=== PATIENT | female | born 1935 | race Two or more races ===

== ENCOUNTER 2018-02-22 22:07 | Inpatient (IN) | payer MEDICARE, MEDICAID ==
[~2018-02-22] VITALS: Ht 149.9 cm; Wt 58.1 kg
--- NOTE | 2018-02-22 22:20 | Emergency Room Report ---
History of Present Illness General Chief Complaint: Dyspnea/Respdistress Source: Patient Present Illness HPI Patient is an 82-year-old female presented for increased difficulty breathing. Patient was noted to have low oxygen saturation by EMS and was transported hospital for further evaluation and treatment. Patient had prior history of diabetes and hypertension. She been taking Lasix for congestive heart failure. She was sent in from urgent care. Allergies: Coded Allergies: No Known Allergies (Unverified , 02/22/18) Patient History Past Medical History: see triage record Last Menstrual Period: n/a Reviewed Nursing Documentation: PMH: Agreed; PSxH: Agreed Nursing Documentation-PMH Hx Hypertension: Yes Hx Pacemaker: Yes Hx Diabetes: Yes - DM II Review of Systems All Other Systems: negative except mentioned in HPI Physical Exam Vital Signs Date Time Temp Pulse Resp B/P (MAP) Pulse Ox O2 Delivery O2 Flow Rate FiO2 02/22/18 22:02 99.0 61 18 96/50 100 Non-Rebreather 100 99.0 Sp02 EP Interpretation: reviewed, normal General Appearance: normal inspection, well appearing, no apparent distress, alert, GCS 15, non-toxic, Chronically Ill Head: atraumatic ENT: normal ENT inspection, hearing grossly normal, normal voice Neck: normal inspection, full range of motion, supple, no bony tend Respiratory: normal inspection, no respiratory distress, no retraction, rales Cardiovascular #1: regular rate, rhythm, edema Gastrointestinal: normal inspection, normal bowel sounds, non tender, soft, no guarding, no hernia Genitourinary: no CVA tenderness Musculoskeletal: normal inspection, back normal, normal range of motion Neurologic: normal inspection, alert, responsive, speech normal, other - right upper extremity pill rolling tremor Psychiatric: normal inspection, judgement/insight normal, mood/affect normal Skin: normal inspection, normal color, no rash Medical Decision Making Diagnostic Impression: Primary Impression: Acute exacerbation of CHF (congestive heart failure) ER Course Patient presented for shortness of breath. Differential included but was not limited to anemia, pneumonia, pneumothorax, myocardial infarction, pericardial effusion, congestive heart failure, acidosis. Because of complexity of patient' s case laboratory testing and imaging studies were ordered.The laboratory testing showed a normal white blood count. Patient started on IV fluids and initially the for hypotension. Patient was noted to have improvement. Chest x- ray showed bilateral infiltrates and vascular congestion and cardiomegaly consistent with CHF. Patient was given IV Lasix. Dr. Johnna Garcia was contacted for inpatient management Labs Test 02/22/18 22:48 White Blood Count 9.5 K/UL (4.8-10.8) Red Blood Count 3.36 M/UL (4.20-5.40) Hemoglobin 9.3 G/DL (12.0-16.0) Hematocrit 28.6 % (37.0-47.0) Mean Corpuscular Volume 85 FL (80-99) Mean Corpuscular Hemoglobin 27.8 PG (27.0-31.0) Mean Corpuscular Hemoglobin Concent 32.7 G/DL (32.0-36.0) Red Cell Distribution Width 16.2 % (11.6-14.8) Platelet Count 431 K/UL (150-450) Mean Platelet Volume 7.2 FL (6.5-10.1) Neutrophils (%) (Auto) 60.1 % (45.0-75.0) Lymphocytes (%) (Auto) 27.4 % (20.0-45.0) Monocytes (%) (Auto) 10.0 % (1.0-10.0) Eosinophils (%) (Auto) 1.9 % (0.0-3.0) Basophils (%) (Auto) 0.7 % (0.0-2.0) Sodium Level 134 MMOL/L (136-145) Potassium Level 4.1 MMOL/L (3.5-5.1) Chloride Level 103 MMOL/L (98-107) Carbon Dioxide Level 25 MMOL/L (21-32) Anion Gap 6 mmol/L (5-15) Blood Urea Nitrogen 28 mg/dL (7-18) Creatinine 1.3 MG/DL (0.55-1.30) Estimat Glomerular Filtration Rate mL/min (>60) Glucose Level 154 MG/DL (74-106) Lactic Acid Level 1.80 mmol/L (0.4-2.0) Calcium Level 8.7 MG/DL (8.5-10.1) Total Bilirubin 0.4 MG/DL (0.2-1.0) Aspartate Amino Transf (AST/SGOT) 27 U/L (15-37) Alanine Aminotransferase (ALT/SGPT) 40 U/L (12-78) Alkaline Phosphatase 468 U/L (46-116) Total Creatine Kinase 42 U/L (26-308) Creatine Kinase MB 0.5 NG/ML (0.0-3.6) Creatine Kinase MB Relative Index 1.1 Troponin I 0.002 ng/mL (0.000-0.056) Total Protein 8.2 G/DL (6.4-8.2) Albumin 3.0 G/DL (3.4-5.0) Globulin 5.2 g/dL Albumin/Globulin Ratio 0.6 (1.0-2.7) EKG Diagnostic Results Rate: normal Rhythm: other - pacemaker ASA given to the pt in ED: No Rhythm Strip Diag. Results EP Interpretation: yes Rhythm: no PVC's, no ectopy, other - paced Last Vital Signs Date Time Temp Pulse Resp B/P (MAP) Pulse Ox O2 Delivery O2 Flow Rate FiO2 02/22/18 22:02 99.0 61 18 96/50 100 Non-Rebreather 100 99.0 Status: unchanged Disposition: ADMITTED INPATIENT Condition: Serious Jamaal Etienne MD Feb 22, 2018 22:20
[2018-02-22 22:30] VITALS: BP 159/51
[2018-02-22] MEDS ORDERED: Albuterol/Ipratropium 3ml neb HHN ONE (22:30)
[2018-02-22 23:10] LABS: BASOPHILS % (AUTO) 0.7 % (0.0-2.0); EOSINOPHILS % (AUTO) 1.9 % (0.0-3.0); HEMATOCRIT 28.6 % (37.0-47.0); HEMOGLOBIN 9.3 G/DL (12.0-16.0); LYMPHOCYTES % (AUTO) 27.4 % (20.0-45.0); MEAN CORPUSCULAR VOLUME 85 FL (80-99); NEUTROPHILS % (AUTO) 60.1 % (45.0-75.0); PLATELET COUNT 431 K/UL (150-450); RED BLOOD COUNT 3.36 M/UL (4.20-5.40); RED CELL DISTRIBUTION WIDTH 16.2 % (11.6-14.8); WHITE BLOOD COUNT 9.5 K/UL (4.8-10.8)
[2018-02-22 23:28] LABS: ANION GAP 6 mmol/L (5-15); BLOOD UREA NITROGEN 28 mg/dL (7-18); CALCIUM 8.7 MG/DL (8.5-10.1); CARBON DIOXIDE 25 MMOL/L (21-32); CHLORIDE 103 MMOL/L (98-107); CREATININE 1.3 MG/DL (0.55-1.30); POTASSIUM 4.1 MMOL/L (3.5-5.1); SODIUM 134 MMOL/L (136-145)
[2018-02-22 23:42] LABS: ALANINE AMINOTRANSFERASE 40 U/L (12-78); ALBUMIN/GLOBULIN RATIO 0.6 (1.0-2.7); ALKALINE PHOSPHATASE 468 U/L (46-116); ASPARTATE AMINO TRANSFERASE 27 U/L (15-37); BILIRUBIN,TOTAL 0.4 MG/DL (0.2-1.0); CKMB 0.5 NG/ML (0.0-3.6); CREATINE KINASE 42 U/L (26-308)
--- NOTE | 2018-02-22 23:52 | Diagnostic Imaging Report ---
EXAM: XR Chest, 1 View CLINICAL HISTORY: SOB TECHNIQUE: Frontal view of the chest. COMPARISON: No relevant prior studies available. FINDINGS: Lungs: Bilateral pulmonary edema/infiltrates. Pleural space: Small/moderate bilateral pleural effusions. No pneumothorax. Heart: Cardiomegaly. Mediastinum: Unremarkable. Bones/joints: Unremarkable. Tubes, lines and devices: Left chest cardiac pacer. IMPRESSION: 1. Bilateral pulmonary edema/infiltrates. 2. Small/moderate bilateral pleural effusions.
[2018-02-23] MEDS ORDERED: DONEPEZIL HCL10 M2 ORAL (00:17)
[2018-02-23] MEDS ORDERED: TORSEMIDE20 MG ORAL (00:17)
[2018-02-23] MEDS ORDERED: FUROSEMIDE20 M1 ORAL (00:17)
[2018-02-23] MEDS ORDERED: NORVASC10 MG ORAL (00:17)
[2018-02-23] MEDS ORDERED: DIOVAN80 MG ORAL (00:17)
[2018-02-23] MEDS ORDERED: AMIODARONE HCL200 MG ORAL (00:17)
[2018-02-23] MEDS ORDERED: XARELTO10 MG ORAL (00:17)
[2018-02-23] MEDS ORDERED: AMIODARONE HCL100 MG ORAL (00:17)
[2018-02-23] MEDS ORDERED: METOPROLOL TAR100 M1 ORAL (00:17)
[2018-02-23] MEDS ORDERED: ASPIRIN81 M3 PO (00:17)
[2018-02-23] MEDS ORDERED: SERTRALINE HCL50 MG ORAL (00:17)
[2018-02-23] MEDS ORDERED: LANTUS SOL100 UNIT/1 SUBQ (00:17)
[2018-02-23 01:30] VITALS: BP 140/52
[2018-02-23 01:44] LABS: APPEARANCE,URINE CLEAR; BILIRUBIN, URINE NEGATIVE (NEGATIVE); COLOR,URINE PALE YELLOW; GLUCOSE, URINE (UA) NEGATIVE (NEGATIVE); KETONES,URINE NEGATIVE (NEGATIVE); LEUKOCYTE ESTERASE ,URINE NEGATIVE (NEGATIVE); NITRITE,URINE NEGATIVE (NEGATIVE); PH,URINE 6 (4.5-8.0); PROTEIN,URINE NEGATIVE (NEGATIVE); UROBILINOGEN,URINE NORMAL MG/DL (0.0-1.0)
[2018-02-23 04:00] VITALS: BP 138/55
[2018-02-23] MEDS: NovoLOG Insulin Flexpen SUBQ SCH ×4 (06:23→20:20)
[2018-02-23 07:56] LABS: BASOPHILS % (AUTO) 0.6 % (0.0-2.0); EOSINOPHILS % (AUTO) 0.5 % (0.0-3.0); HEMATOCRIT 27.1 % (37.0-47.0); HEMOGLOBIN 8.6 G/DL (12.0-16.0); LYMPHOCYTES % (AUTO) 25.2 % (20.0-45.0); MEAN CORPUSCULAR VOLUME 87 FL (80-99); MONOCYTES % (AUTO) 7.2 % (1.0-10.0); NEUTROPHILS % (AUTO) 66.6 % (45.0-75.0); PLATELET COUNT 384 K/UL (150-450); RED BLOOD COUNT 3.12 M/UL (4.20-5.40); RED CELL DISTRIBUTION WIDTH 16.1 % (11.6-14.8); WHITE BLOOD COUNT 7.2 K/UL (4.8-10.8)
[2018-02-23 08:00] VITALS: BP 163/61
[2018-02-23 08:10] LABS: ALANINE AMINOTRANSFERASE 34 U/L (12-78); ALBUMIN 2.6 G/DL (3.4-5.0); ALBUMIN/GLOBULIN RATIO 0.6 (1.0-2.7); ALKALINE PHOSPHATASE 400 U/L (46-116); ANION GAP 6 mmol/L (5-15); ASPARTATE AMINO TRANSFERASE 20 U/L (15-37); BILIRUBIN,TOTAL 0.4 MG/DL (0.2-1.0); BLOOD UREA NITROGEN 24 mg/dL (7-18); CALCIUM 8.2 MG/DL (8.5-10.1); CARBON DIOXIDE 26 MMOL/L (21-32); CHLORIDE 105 MMOL/L (98-107); CREATININE 1.2 MG/DL (0.55-1.30); SODIUM 137 MMOL/L (136-145)
--- NOTE | 2018-02-23 10:24 | Consultation ---
Consult Note Assessment/Plan DICT # [id number] Vinicius Miranda MD Feb 23, 2018 10:24
[2018-02-23] MEDS ORDERED: Albuterol/Ipratropium 3ml neb HHN PRN (10:30)
[2018-02-23 12:00] VITALS: BP 123/73
--- NOTE | 2018-02-23 12:00 | History and Physical Report ---
DATE OF ADMISSION: 02/22/2018 HISTORY OF PRESENT ILLNESS: The patient does not speak Singaporean. The patient is complaining of mild abdominal pain, nausea, and shortness of breath. The patient is admitted for shortness of breath and congestive heart failure exacerbation. The patient also has pulmonary edema on the x-ray and has a pacemaker as well. Denies cough. Does have orthopnea. Denies leg edema. PAST MEDICAL HISTORY: Significant for organic brain syndrome, Parkinson, NIDDM, hypertension, history of atrial fibrillation, depression, and CHF. PAST SURGICAL HISTORY: Denies. ALLERGIES: Denies. MEDICATIONS: Aspirin, Norvasc, amiodarone, furosemide, insulin, metoprolol, Zoloft, Xarelto, and Diovan. FAMILY HISTORY: Unable to obtain. SOCIAL HISTORY: Denies history of smoking, alcohol, or illicit drugs. REVIEW OF SYSTEMS: HEENT: Denies headaches. RESPIRATORY: Reports shortness of breath. Denies cough. Does have orthopnea. GASTROINTESTINAL: Does have nausea, otherwise denies vomiting. EXTREMITIES: Denies pain in lower extremities. Does have mild abdominal pain. CENTRAL NERVOUS SYSTEM: Denies change in vision or speech pattern. PHYSICAL EXAMINATION: VITAL SIGNS: Temperature is 97.6 and blood pressure 140/52. HEENT: PERRLA. NECK: Supple. No lymphadenopathy. CHEST: Bibasilar rales. CARDIOVASCULAR: Irregularly irregular. . ABDOMEN: Soft and nontender. No organomegaly. EXTREMITIES: 1+ edema. NEUROLOGIC: There is generalized weakness. Reflexes are equal on both sides. DIAGNOSTIC AND LABORATORY DATA: A chest x-ray was compatible with pulmonary edema. WBC of 9.5, hemoglobin 9.3, and platelets of 433. Sodium 134, potassium 4.1, chloride 103, BUN of 28, creatinine 1.3, and glucose 154. Troponin is negative. No significant EKG changes. ASSESSMENT AND PLAN: 1. CHF exacerbation. 2. Shortness of breath. 3. Atrial fibrillation. 4. Hypertension. 5. Pulmonary edema. I have also asked Dr. Reid, Dr. Mcwilliams, and Dr. Miranda, see the patient for the management of the above-mentioned diagnoses and treatment. Johnna Ruiz M.D. DR: KARIN JOB#: [id number] CC:
--- NOTE | 2018-02-23 14:25 | Cardiac Electrophysiology PN ---
Subjective Subjective [id number] Objective Last 24 Hour Vital Signs Date Time Temp Pulse Resp B/P (MAP) Pulse Ox O2 Delivery O2 Flow Rate FiO2 02/23/18 12:00 60 02/23/18 12:00 97.5 82 18 123/73 100 Non-Rebreather 10.0 97.5 02/23/18 11:06 68 20 95 Venturi Mask 12.0 50 02/23/18 10:55 65 22 90 Venturi Mask 12.0 50 02/23/18 10:50 65 22 Venturi Mask 12.0 50 02/23/18 10:22 163/61 02/23/18 10:02 93 Venturi Mask 12.0 50 02/23/18 10:01 Venturi Mask 12.0 50 02/23/18 08:00 68 02/23/18 08:00 97.6 67 22 163/61 97 Non-Rebreather 10.0 97.6 02/23/18 04:00 97.7 62 20 138/55 96 Non-Rebreather 10.0 97.7 02/23/18 04:00 60 02/23/18 02:40 98.0 151/51 02/23/18 01:35 65 02/23/18 01:30 97.6 62 20 140/52 98 Non-Rebreather 10.0 97.6 02/23/18 00:29 90 20 98 Nasal Cannula 2.0 28 02/23/18 00:14 92 20 99 Room Air 21 02/22/18 22:30 99.0 18 159/51 100 Non-Rebreather 100 99.0 02/22/18 22:30 61 18 Non-Rebreather 100 02/22/18 22:02 99.0 61 18 96/50 100 Non-Rebreather 100 99.0 Intake and Output 02/22/18 02/23/18 19:00 07:00 Intake Total 0 ml Balance 0 ml Intake Oral 0 ml # Voids 4 # Bowel Movements 2 Laboratory Tests Test 02/22/18 22:46 02/22/18 22:48 02/23/18 06:02 02/23/18 10:40 Urine Color Pale yellow Urine Appearance Clear Urine pH 6 (4.5-8.0) Urine Specific [place] 1.010 (1.005-1.035) Urine Protein Negative (NEGATIVE) Urine Glucose (UA) Negative (NEGATIVE) Urine Ketones Negative (NEGATIVE) Urine Occult Blood Negative (NEGATIVE) Urine Nitrite Negative (NEGATIVE) Urine Bilirubin Negative (NEGATIVE) Urine Urobilinogen Normal MG/DL (0.0-1.0) Urine Leukocyte Esterase Negative (NEGATIVE) White Blood Count 9.5 K/UL (4.8-10.8) 7.2 K/UL (4.8-10.8) Red Blood Count 3.36 M/UL (4.20-5.40) L 3.12 M/UL (4.20-5.40) L Hemoglobin 9.3 G/DL (12.0-16.0) L 8.6 G/DL (12.0-16.0) L Hematocrit 28.6 % (37.0-47.0) L 27.1 % (37.0-47.0) L Mean Corpuscular Volume 85 FL (80-99) 87 FL (80-99) Mean Corpuscular Hemoglobin 27.8 PG (27.0-31.0) 27.6 PG (27.0-31.0) Mean Corpuscular Hemoglobin Concent 32.7 G/DL (32.0-36.0) 31.8 G/DL (32.0-36.0) L Red Cell Distribution Width 16.2 % (11.6-14.8) H 16.1 % (11.6-14.8) H Platelet Count 431 K/UL (150-450) 384 K/UL (150-450) Mean Platelet Volume 7.2 FL (6.5-10.1) 7.1 FL (6.5-10.1) Neutrophils (%) (Auto) 60.1 % (45.0-75.0) 66.6 % (45.0-75.0) Lymphocytes (%) (Auto) 27.4 % (20.0-45.0) 25.2 % (20.0-45.0) Monocytes (%) (Auto) 10.0 % (1.0-10.0) 7.2 % (1.0-10.0) Eosinophils (%) (Auto) 1.9 % (0.0-3.0) 0.5 % (0.0-3.0) Basophils (%) (Auto) 0.7 % (0.0-2.0) 0.6 % (0.0-2.0) Sodium Level 134 MMOL/L (136-145) L 137 MMOL/L (136-145) Potassium Level 4.1 MMOL/L (3.5-5.1) 4.0 MMOL/L (3.5-5.1) Chloride Level 103 MMOL/L (98-107) 105 MMOL/L (98-107) Carbon Dioxide Level 25 MMOL/L (21-32) 26 MMOL/L (21-32) Anion Gap 6 mmol/L (5-15) 6 mmol/L (5-15) Blood Urea Nitrogen 28 mg/dL (7-18) H 24 mg/dL (7-18) H Creatinine 1.3 MG/DL (0.55-1.30) 1.2 MG/DL (0.55-1.30) Estimat Glomerular Filtration Rate mL/min (>60) mL/min (>60) Glucose Level 154 MG/DL (74-106) H 151 MG/DL (74-106) H Lactic Acid Level 1.80 mmol/L (0.4-2.0) Calcium Level 8.7 MG/DL (8.5-10.1) 8.2 MG/DL (8.5-10.1) L Total Bilirubin 0.4 MG/DL (0.2-1.0) 0.4 MG/DL (0.2-1.0) Aspartate Amino Transf (AST/SGOT) 27 U/L (15-37) 20 U/L (15-37) Alanine Aminotransferase (ALT/SGPT) 40 U/L (12-78) 34 U/L (12-78) Alkaline Phosphatase 468 U/L (46-116) H 400 U/L (46-116) H Total Creatine Kinase 42 U/L (26-308) Creatine Kinase MB 0.5 NG/ML (0.0-3.6) Creatine Kinase MB Relative Index 1.1 Troponin I 0.002 ng/mL (0.000-0.056) 0.000 ng/mL (0.000-0.056) Total Protein 8.2 G/DL (6.4-8.2) 7.3 G/DL (6.4-8.2) Albumin 3.0 G/DL (3.4-5.0) L 2.6 G/DL (3.4-5.0) L Globulin 5.2 g/dL 4.7 g/dL Albumin/Globulin Ratio 0.6 (1.0-2.7) L 0.6 (1.0-2.7) L D-Dimer 0.72 mg/L FEU (0.00-0.49) H Pro-B-Type Natriuretic Peptide 2984 pg/mL (0-125) H Test 02/23/18 10:50 Arterial Blood pH 7.459 (7.350-7.450) Arterial Blood Partial Pressure CO2 38.5 mmHg (35.0-45.0) Arterial Blood Partial Pressure O2 56.1 mmHg (75.0-100.0) L Arterial Blood HCO3 26.7 mmol/L (22.0-26.0) H Arterial Blood Oxygen Saturation 88.5 % (92.0-98.0) L Arterial Blood Base Excess 2.8 Chacho Test Positive Parviz Reid MD Feb 23, 2018 14:25
--- NOTE | 2018-02-23 15:30 | Consultation ---
DATE OF CONSULTATION: 02/23/2018 PULMONARY CONSULTATION CONSULTING PHYSICIAN: Vinicius Miranda M.D. REFERRING PHYSICIAN: Johnna Ruiz M.D. REASON FOR CONSULTATION: Hypoxemia. HISTORY OF PRESENT ILLNESS: The patient is an 82-year-old female with a history of CHF, hypertension, hyperlipidemia, diabetes, dementia, and atrial fibrillation on anticoagulation, admitted with shortness of breath. Initially, the patient was hypotensive when she got to the ED and was given IV fluids, then she became more congested afterwards and hypoxemic. She was subsequently diuresed. Chest x-ray showed bilateral pulmonary vascular congestion, plus or minus infiltrates. She was afebrile with no white count. She denies any cough, wheezing, or hemoptysis. She notes increased shortness of breath, dyspnea, PND, and orthopnea. PAST MEDICAL HISTORY: 1. Prediabetes. 2. Hypertension. 3. Hyperlipidemia. 4. Atrial fibrillation. 5. Possible dementia. ALLERGIES: No known drug allergies. MEDICATIONS: Prior to admission, medications reviewed. Current medications, reviewed. SOCIAL HISTORY: She denies tobacco, alcohol, or drug use. FAMILY HISTORY: Noncontributory. REVIEW OF SYSTEMS: Negative other than history of present illness. PHYSICAL EXAMINATION: VITAL SIGNS: Temperature 97.6, pulse 67, blood pressure 163/61, respiratory rate 22, and saturating 100% on a Venturi mask 50%. GENERAL: She is an elderly female, in no acute distress. Awake, alert, and oriented x3. HEENT: Normocephalic and atraumatic. Oropharynx is clear with moist mucous membranes. NECK: Supple without lymphadenopathy with 8 cm JVP. CHEST: Clear with bibasilar rales. HEART: Regular rate and rhythm. ABDOMEN: Soft, nontender, and nondistended. EXTREMITIES: No cyanosis, clubbing. There is some presacral edema. ANCILLARY DATA: Sodium 137, potassium 4, chloride 105, bicarb 26, BUN 24, creatinine 1.2, glucose 151, and calcium 8.2. Total bilirubin 0.4. AST 20, ALT 34, alkaline phosphatase 34. Troponin 0.002, CK 0.01, and CK-MB 57. Albumin 2.6. Globulin 4.7. Urinalysis is negative. Chest x-ray, reviewed by myself shows bilateral pulmonary vascular congestion and scattered infiltrates. ASSESSMENT: The patient is an 82-year-old female with a history of CHF, hypertension, hyperlipidemia, atrial fibrillation, possible dementia, admitted with shortness of breath likely secondary to decompensated heart failure. PROBLEM LIST: 1. Acute hypoxemic respiratory failure. 2. CHF with acute decompensated heart failure. 3. Hypertension. 4. Hyperlipidemia. 5. Diabetes. 6. Atrial fibrillation on anticoagulation. 7. Possible GERD. TREATMENT PLAN: 1. Optimize pulmonary hygiene/mobilize as tolerated. 2. Titrate down FiO2 to keep saturations greater than 90%. 3. P.r.n. bronchodilators. 4. Monitor volumes and renal function, diuresis as tolerated. 5. Follow up echocardiogram. 6. We will check a D-dimer and a duplex. 7. We will monitor off antibiotics for signs of respiratory precautions. 8. Aspiration precautions. 9. X-ray should be followed to resolution. 10. DVT prophylaxis. The patient is on anticoagulation. Dr. Ruiz, thank you for allowing me to assist in the care of your patient. If I may be of any assistance in the future, please do not hesitate to ask. Dottie Huynh JOB#: [id number] CC:
[2018-02-23 15:45] VITALS: BP 143/53
--- NOTE | 2018-02-23 18:45 | Consultation ---
DATE OF CONSULTATION: 02/23/2018 CARDIOLOGY CONSULTATION CONSULTING PHYSICIAN: Parviz Reid M.D. REFERRING PHYSICIAN: Johnna Ruiz M.D. REASON FOR CONSULTATION: Shortness of breath and evaluation of the patient's pacemaker. HISTORY OF PRESENT ILLNESS: The patient is an 82-year-old lady with history of hypertension, diabetes, and history of permanent pacemaker, who also has congestive heart failure, has been on Lasix. The patient presented to the emergency for increasing shortness of breath and low oxygen saturation by EMS. The patient was sent back from an urgent care. The patient was admitted and a Cardiology consultation was obtained for further evaluation and management. PAST MEDICAL HISTORY: 1. Hypertension. 2. Diabetes. 3. Congestive heart failure. 4. Status post pacemaker. FAMILY HISTORY: Noncontributory. SOCIAL HISTORY: She does not smoke or drink alcohol. REVIEW OF SYSTEMS: Review of systems was negative other than what was mentioned in the history of present illness. PHYSICAL EXAMINATION: VITAL SIGNS: Blood pressure is 122/73, pulse is 82, respirations 18, and she is afebrile. HEAD AND NECK: Showed no JVD or carotid bruits. LUNGS: Clear. CARDIOVASCULAR: Regular S1 and S2. Pacemaker in left subclavian. ABDOMEN: Soft. EXTREMITIES: No pitting edema. LABORATORY DATA: Labs show white count of 7.2, hemoglobin 8.3, hematocrit 27.1 and platelet count of 384. Sodium 137, potassium 4.0, BUN of 24, creatinine 1.2, and glucose of 151. Troponin negative x2. BNP 2984 and D-dimer is 0.72. ASSESSMENT AND PLAN: 1. Status post permanent pacemaker implantation. The patient's EKG showed the patient is atrially paced at rate of 60 with nonspecific T-wave abnormality. We will try to find the brand of the pacemaker for interrogation. 2. Shortness of breath and elevated BNP likely secondary to congestive heart failure. The patient is on Lasix 40 mg IV daily. 3. History of paroxysmal atrial fibrillation, on a Xarelto, currently in sinus rhythm. 4. Elevated D-dimer. The patient may benefit from V/Q scan or chest CT depending on Dr. Miranda's choice. Thank you very much for allowing me to participate in the care of this patient. Please do not hesitate to contact me for any questions regarding my evaluation. Parviz Reid M.D. DR: RODNEY JOB#: [id number] CC:
[2018-02-23 20:00] VITALS: BP 135/50
--- NOTE | 2018-02-23 23:55 | Consultation ---
History of Present Illness General Date patient seen: Feb 23, 2018 Chief Complaint: Dyspnea/Respdistress Present Illness HPI 82-year-old female with a history of CHF, MDD, Anxiety, hypertension, hyperlipidemia, diabetes, dementia, and atrial fibrillation on anticoagulation, admitted with shortness of breath. the pt is on zoloft. the pt has anxiety and low energy no si/hi. no psychotic sxs. the pt is forgetful and has cognitive impairment Allergies: Coded Allergies: No Known Allergies (Unverified , 02/22/18) Medication History Scheduled Amiodarone Hcl* (Cordarone*), 200 MG ORAL DAILY, (Reported) Amlodipine Besylate (Norvasc), 10 MG ORAL DAILY, (Reported) Donepezil Hcl* (Donepezil Hcl*), 10 MG ORAL BEDTIME, (Reported) Furosemide* (Lasix*), 20 MG ORAL DAILY, (Reported) Insulin Glargine (Lantus), 30 SUBQ BEFORE LUNCH, (Reported) Metoprolol Tartrate* (Metoprolol Tartrate*), 100 MG ORAL EVERY 12 HOURS, ( Reported) Rivaroxaban (Xarelto*), 10 MG ORAL DAILY, (Reported) Sertraline Hcl* (Zoloft*), 50 MG ORAL DAILY, (Reported) Torsemide* (Demadex*), 20 MG ORAL DAILY, (Reported) Valsartan (Diovan), 80 MG ORAL DAILY, (Reported) Miscellaneous Medications Aspirin (Aspirin), 81 MG PO, (Reported) Discontinued Medications Amiodarone Hcl (Amiodarone Hcl), 100 MG ORAL EVERY 8 HOURS, (Reported) Discontinued Reason: Medication dose changed Patient History Limited by: medical condition History Provided By: Patient, Medical Record, PMD Healthcare decision maker Resuscitation status Full Code Advanced Directive on File Review of Systems Psychiatric: Reports: prior hx, anxiety, depressed feelings, emotional problems Physical Exam General Appearance: no apparent distress, alert Neurologic: oriented x 3, responsive, depressed affect Last 24 Hour Vital Signs Date Time Temp Pulse Resp B/P (MAP) Pulse Ox O2 Delivery O2 Flow Rate FiO2 02/23/18 20:00 61 02/23/18 20:00 72 22 Venturi Mask 12.0 50 02/23/18 20:00 94 Venturi Mask 12.0 50 02/23/18 20:00 97.8 60 20 135/50 95 Non-Rebreather 10.0 97.8 02/23/18 20:00 Venturi Mask 12.0 50 02/23/18 16:30 60 02/23/18 15:45 97.3 60 20 143/53 96 Non-Rebreather 10.0 97.3 02/23/18 12:00 60 02/23/18 12:00 97.5 82 18 123/73 100 Non-Rebreather 10.0 97.5 02/23/18 11:06 68 20 95 Venturi Mask 12.0 50 02/23/18 10:55 65 22 90 Venturi Mask 12.0 50 02/23/18 10:50 65 22 Venturi Mask 12.0 50 02/23/18 10:22 163/61 02/23/18 10:02 93 Venturi Mask 12.0 50 02/23/18 10:01 Venturi Mask 12.0 50 02/23/18 08:00 68 02/23/18 08:00 97.6 67 22 163/61 97 Non-Rebreather 10.0 97.6 02/23/18 04:00 97.7 62 20 138/55 96 Non-Rebreather 10.0 97.7 02/23/18 04:00 60 02/23/18 02:40 98.0 151/51 02/23/18 01:35 65 02/23/18 01:30 97.6 62 20 140/52 98 Non-Rebreather 10.0 97.6 02/23/18 00:29 90 20 98 Nasal Cannula 2.0 28 02/23/18 00:14 92 20 99 Room Air 21 Intake and Output 02/22/18 02/23/18 19:00 07:00 Intake Total 0 ml Balance 0 ml Intake Oral 0 ml # Voids 4 # Bowel Movements 2 Laboratory Tests Test 02/23/18 06:02 02/23/18 10:40 02/23/18 10:50 White Blood Count 7.2 K/UL (4.8-10.8) Red Blood Count 3.12 M/UL (4.20-5.40) L Hemoglobin 8.6 G/DL (12.0-16.0) L Hematocrit 27.1 % (37.0-47.0) L Mean Corpuscular Volume 87 FL (80-99) Mean Corpuscular Hemoglobin 27.6 PG (27.0-31.0) Mean Corpuscular Hemoglobin Concent 31.8 G/DL (32.0-36.0) L Red Cell Distribution Width 16.1 % (11.6-14.8) H Platelet Count 384 K/UL (150-450) Mean Platelet Volume 7.1 FL (6.5-10.1) Neutrophils (%) (Auto) 66.6 % (45.0-75.0) Lymphocytes (%) (Auto) 25.2 % (20.0-45.0) Monocytes (%) (Auto) 7.2 % (1.0-10.0) Eosinophils (%) (Auto) 0.5 % (0.0-3.0) Basophils (%) (Auto) 0.6 % (0.0-2.0) Sodium Level 137 MMOL/L (136-145) Potassium Level 4.0 MMOL/L (3.5-5.1) Chloride Level 105 MMOL/L (98-107) Carbon Dioxide Level 26 MMOL/L (21-32) Anion Gap 6 mmol/L (5-15) Blood Urea Nitrogen 24 mg/dL (7-18) H Creatinine 1.2 MG/DL (0.55-1.30) Estimat Glomerular Filtration Rate mL/min (>60) Glucose Level 151 MG/DL (74-106) H Calcium Level 8.2 MG/DL (8.5-10.1) L Total Bilirubin 0.4 MG/DL (0.2-1.0) Aspartate Amino Transf (AST/SGOT) 20 U/L (15-37) Alanine Aminotransferase (ALT/SGPT) 34 U/L (12-78) Alkaline Phosphatase 400 U/L (46-116) H Total Protein 7.3 G/DL (6.4-8.2) Albumin 2.6 G/DL (3.4-5.0) L Globulin 4.7 g/dL Albumin/Globulin Ratio 0.6 (1.0-2.7) L D-Dimer 0.72 mg/L FEU (0.00-0.49) H Troponin I 0.000 ng/mL (0.000-0.056) Pro-B-Type Natriuretic Peptide 2984 pg/mL (0-125) H Arterial Blood pH 7.459 (7.350-7.450) Arterial Blood Partial Pressure CO2 38.5 mmHg (35.0-45.0) Arterial Blood Partial Pressure O2 56.1 mmHg (75.0-100.0) L Arterial Blood HCO3 26.7 mmol/L (22.0-26.0) H Arterial Blood Oxygen Saturation 88.5 % (92.0-98.0) L Arterial Blood Base Excess 2.8 Chacho Test Positive Height (Feet): 4 Height (Inches): 11.00 Weight (Pounds): 142 Medications Current Medications Medications (Trade) Dose Ordered Sig/Carlo Route PRN Reason Start Time Stop Time Status Last Admin Dose Admin Acetaminophen (Tylenol) 500 mg Q4H PRN ORAL Mild Pain/Temp > 100.5 02/23/18 02:00 03/25/18 01:59 Albuterol/ Ipratropium (Albuterol/ Ipratropium) 3 ml Q4H PRN HHN Shortness of Breath 02/23/18 10:30 02/28/18 10:29 02/23/18 11:00 Clonidine HCl (Catapres Tab) 0.1 mg Q2H PRN ORAL For High Blood Pressure 02/23/18 09:45 03/25/18 09:44 02/23/18 10:22 Dextrose (Dextrose 50%) 25 ml STAT PRN IV Hypoglycemia 02/23/18 02:00 03/25/18 01:59 Dextrose (Dextrose 50%) 50 ml STAT PRN IV Hypoglycemia 02/23/18 02:00 03/25/18 01:59 Furosemide (Lasix) 40 mg DAILY IV 02/24/18 09:00 03/26/18 08:59 Insulin Aspart (NovoLOG) BEFORE MEALS AND HS SUBQ 02/23/18 06:30 03/25/18 06:29 02/23/18 20:20 Rivaroxaban (Xarelto) 10 mg DAILY ORAL 02/24/18 09:00 03/26/18 08:59 Assessment/Plan Status: stable Assessment/Plan MDD anxiety Dementia -Zoloft -donepezil Orlin Abdullahi MD Feb 23, 2018 23:55
[2018-02-24] VITALS: BP 150/54
[2018-02-24 04:00] VITALS: BP 153/59
[2018-02-24] MEDS: NovoLOG Insulin Flexpen SUBQ SCH ×4 (06:00→20:59)
[2018-02-24 08:00] VITALS: BP 164/59
--- NOTE | 2018-02-24 10:26 | Cardiac Electrophysiology PN ---
Assessment/Plan Assessment/Plan 1. Status post permanent pacemaker implantation. The patient's EKG showed the patient is atrially paced at rate of 60 with nonspecific T-wave abnormality. We will try to find the brand of the pacemaker for interrogation. 2. Shortness of breath and elevated BNP likely secondary to congestive heart failure. On Lasix 40 mg IV daily. 3. History of paroxysmal atrial fibrillation, on a Xarelto, currently in sinus rhythm. 4. Elevated D-dimer. Stat V/Q scan. Follow up Dr. Miranda's Subjective Subjective Feeling better. No CP or SOB. Remained in SR Objective Last 24 Hour Vital Signs Date Time Temp Pulse Resp B/P (MAP) Pulse Ox O2 Delivery O2 Flow Rate FiO2 02/24/18 07:20 Venturi Mask 12.0 50 02/24/18 07:20 70 21 Venturi Mask 12.0 50 02/24/18 07:20 92 Venturi Mask 12.0 50 02/24/18 04:00 63 02/24/18 04:00 97.7 68 20 153/59 95 Non-Rebreather 10.0 97.7 02/24/18 00:00 60 02/24/18 00:00 97.8 60 20 150/54 94 Non-Rebreather 10.0 97.8 02/23/18 20:00 61 02/23/18 20:00 72 22 Venturi Mask 12.0 50 02/23/18 20:00 94 Venturi Mask 12.0 50 02/23/18 20:00 97.8 60 20 135/50 95 Non-Rebreather 10.0 97.8 02/23/18 20:00 Venturi Mask 12.0 50 02/23/18 16:30 60 02/23/18 15:45 97.3 60 20 143/53 96 Non-Rebreather 10.0 97.3 02/23/18 12:00 60 02/23/18 12:00 97.5 82 18 123/73 100 Non-Rebreather 10.0 97.5 02/23/18 11:06 68 20 95 Venturi Mask 12.0 50 02/23/18 10:55 65 22 90 Venturi Mask 12.0 50 02/23/18 10:50 65 22 Venturi Mask 12.0 50 Intake and Output 02/23/18 02/24/18 19:00 07:00 Intake Total 170 ml Output Total 700 ml Balance -530 ml Intake Oral 170 ml Output Urine Total 700 ml # Voids 2 # Bowel Movements 1 1 Laboratory Tests Test 02/23/18 10:40 02/23/18 10:50 02/24/18 07:09 D-Dimer 0.72 mg/L FEU (0.00-0.49) H Troponin I 0.000 ng/mL (0.000-0.056) 0.001 ng/mL (0.000-0.056) Pro-B-Type Natriuretic Peptide 2984 pg/mL (0-125) H 1785 pg/mL (0-125) H Arterial Blood pH 7.459 (7.350-7.450) Arterial Blood Partial Pressure CO2 38.5 mmHg (35.0-45.0) Arterial Blood Partial Pressure O2 56.1 mmHg (75.0-100.0) L Arterial Blood HCO3 26.7 mmol/L (22.0-26.0) H Arterial Blood Oxygen Saturation 88.5 % (92.0-98.0) L Arterial Blood Base Excess 2.8 Chacho Test Positive Microbiology Date/Time Source Procedure Growth Status 02/22/18 22:48 Blood Blood Culture - Preliminary NO GROWTH AFTER 24 HOURS Resulted 02/22/18 22:48 Blood Blood Culture - Preliminary NO GROWTH AFTER 24 HOURS Resulted Objective HEAD AND NECK: No JVD or carotid bruits. LUNGS: Clear. CARDIOVASCULAR: Regular S1 and S2. Pacemaker in left subclavian. ABDOMEN: Soft. EXTREMITIES: No pitting edema. Parviz Reid MD Feb 24, 2018 10:26
[2018-02-24] MEDS: Xarelto 10mg tab ORAL SCH (10:33)
[2018-02-24 12:00] VITALS: BP 169/57
[2018-02-24 14:15] LABS: INR 1.2 (0.9-1.1)
[2018-02-24 14:17] LABS: HEMATOCRIT 31.8 % (37.0-47.0); MEAN CORPUSCULAR VOLUME 86 FL (80-99); PLATELET COUNT 447 K/UL (150-450); RED BLOOD COUNT 3.69 M/UL (4.20-5.40); RED CELL DISTRIBUTION WIDTH 15.8 % (11.6-14.8); WHITE BLOOD COUNT 6.4 K/UL (4.8-10.8)
[2018-02-24 14:28] LABS: FERRITIN 79 NG/ML (8-388); LACTATE DEHYDROGENASE 203 U/L (81-234)
[2018-02-24 14:53] LABS: % IRON SATURATION 6 % (15-50); IRON 18 ug/dL (50-175); TOTAL IRON BINDING CAPACITY 283 ug/dL (250-450)
--- NOTE | 2018-02-24 15:51 | Pulmonology Progress Note ---
Assessment/Plan Problems: (1) Shortness of breath (2) Acute exacerbation of CHF (congestive heart failure) Assessment/Plan ASSESSMENT: The patient is an 82-year-old female with a history of CHF, hypertension, hyperlipidemia, atrial fibrillation, possible dementia, admitted with shortness of breath likely secondary to decompensated heart failure. PROBLEM LIST: 1. Acute hypoxemic respiratory failure. 2. CHF with acute decompensated heart failure. 3. Hypertension. 4. Hyperlipidemia. 5. Diabetes. 6. Atrial fibrillation on anticoagulation. 7. Possible GERD. TREATMENT PLAN: 1. Optimize pulmonary hygiene/mobilize as tolerated. 2. Titrate down FiO2 to keep saturations greater than 90%. 3. P.r.n. bronchodilators. 4. Monitor volumes and renal function, diuresis as tolerated. 5. We will monitor off antibiotics for signs of respiratory precautions. 6. Aspiration precautions. 7. X-ray should be followed to resolution. 8. DVT prophylaxis. The patient is on anticoagulation. Subjective Allergies: Coded Allergies: No Known Allergies (Unverified , 02/22/18) Subjective -500, less SOB, no cough, no wheezing, no F/C Duplex negative, D-dimer minimall elevated, PASP elevated Objective Last 24 Hour Vital Signs Date Time Temp Pulse Resp B/P (MAP) Pulse Ox O2 Delivery O2 Flow Rate FiO2 02/24/18 12:00 98.0 69 19 169/57 95 Non-Rebreather 10.0 98.0 02/24/18 12:00 64 02/24/18 08:00 61 02/24/18 08:00 97.8 67 20 164/59 91 Non-Rebreather 10.0 97.8 02/24/18 07:20 Venturi Mask 12.0 50 02/24/18 07:20 70 21 Venturi Mask 12.0 50 02/24/18 07:20 92 Venturi Mask 12.0 50 02/24/18 04:00 63 02/24/18 04:00 97.7 68 20 153/59 95 Non-Rebreather 10.0 97.7 02/24/18 00:00 60 02/24/18 00:00 97.8 60 20 150/54 94 Non-Rebreather 10.0 97.8 02/23/18 20:00 61 02/23/18 20:00 72 22 Venturi Mask 12.0 50 02/23/18 20:00 94 Venturi Mask 12.0 50 02/23/18 20:00 97.8 60 20 135/50 95 Non-Rebreather 10.0 97.8 02/23/18 20:00 Venturi Mask 12.0 50 02/23/18 16:30 60 Intake and Output 02/23/18 02/24/18 19:00 07:00 Intake Total 170 ml Output Total 700 ml Balance -530 ml Intake Oral 170 ml Output Urine Total 700 ml # Voids 2 # Bowel Movements 1 1 General Appearance: WD/WN, no acute distress HEENT: normocephalic, atraumatic, anicteric, mucous membranes moist Respiratory/Chest: chest wall non-tender, lungs clear, normal breath sounds - but decreased @ bases Cardiovascular: normal peripheral pulses, normal rate, regular rhythm Abdomen: normal bowel sounds, soft, non tender, no organomegaly, non distended , no mass Extremities: no cyanosis, no clubbing, other - 1+ John Microbiology Date/Time Source Procedure Growth Status 02/22/18 22:48 Blood Blood Culture - Preliminary NO GROWTH AFTER 24 HOURS Resulted 02/22/18 22:48 Blood Blood Culture - Preliminary NO GROWTH AFTER 24 HOURS Resulted Laboratory Tests 02/24/18 07:09: Troponin I 0.001, Pro-B-Type Natriuretic Peptide 1785H 02/24/18 13:33: White Blood Count 6.4, Red Blood Count 3.69L, Hemoglobin 10.0L, Hematocrit 31.8L , Mean Corpuscular Volume 86, Mean Corpuscular Hemoglobin 27.2, Mean Corpuscular Hemoglobin Concent 31.5L, Red Cell Distribution Width 15.8H, Platelet Count 447, Mean Platelet Volume 7.1, Neutrophils (%) (Auto) , Lymphocytes (%) (Auto) , Monocytes (%) (Auto) , Eosinophils (%) (Auto) , Basophils (%) (Auto) , Reticulocyte Count 2.4H, Prothrombin Time 13.0H, Prothromb Time International Ratio 1.2H, Iron Level 18L, Total Iron Binding Capacity 283, Percent Iron Saturation 6L, Unsaturated Iron Binding 265, Ferritin 79, Lactate Dehydrogenase 203, Vitamin B12 Level 347, Folate 34.0 Current Medications Medications (Trade) Dose Ordered Sig/Carlo Route PRN Reason Start Time Stop Time Status Last Admin Dose Admin Acetaminophen (Tylenol) 500 mg Q4H PRN ORAL Mild Pain/Temp > 100.5 02/23/18 02:00 03/25/18 01:59 Albuterol/ Ipratropium (Albuterol/ Ipratropium) 3 ml Q4H PRN HHN Shortness of Breath 02/23/18 10:30 02/28/18 10:29 02/23/18 11:00 Clonidine HCl (Catapres Tab) 0.1 mg Q2H PRN ORAL For High Blood Pressure 02/23/18 09:45 03/25/18 09:44 02/23/18 10:22 Dextrose (Dextrose 50%) 25 ml STAT PRN IV Hypoglycemia 02/23/18 02:00 03/25/18 01:59 Dextrose (Dextrose 50%) 50 ml STAT PRN IV Hypoglycemia 02/23/18 02:00 03/25/18 01:59 Furosemide (Lasix) 40 mg DAILY IV 02/24/18 09:00 03/26/18 08:59 02/24/18 10:33 Insulin Aspart (NovoLOG) BEFORE MEALS AND HS SUBQ 02/23/18 06:30 03/25/18 06:29 02/24/18 12:07 Rivaroxaban (Xarelto) 10 mg DAILY ORAL 02/24/18 09:00 03/26/18 08:59 02/24/18 10:33 Vinicius Miranda MD Feb 24, 2018 15:51
[2018-02-24 16:00] VITALS: BP 170/65
--- NOTE | 2018-02-24 16:12 | Diagnostic Imaging Report ---
Indication: Chest pain Technique: A ventilation/perfusion scan was performed. Ventilation was performed utilizing 40 mCi of Technetium 99m-DTPA. Perfusion was performed with 5.2 mCi of technetium 99m-MAA injected intravenously. Multiple side by side projections obtained. Findings: There is a small mismatched defect at the right base as well as some small matched defects. IMPRESSION: Low to intermediate probability for pulmonary embolism. Recommend further evaluation with CT angiogram of the chest. This is discussed with the patient's treating nurse on 2 E. via telephone conversation. Treating nurse to inform the ordering physician of the results and follow-up imaging recommendations.
[2018-02-24] MEDS ORDERED: Isovue-370 150ml vial INJ PRN (17:15)
[2018-02-24 20:00] VITALS: BP 164/69
--- NOTE | 2018-02-24 21:30 | Consultation ---
DATE OF CONSULTATION: 02/24/2018 NOTE: POOR AUDIO HEMATOLOGY/ONCOLOGY CONSULTATION CONSULTING PHYSICIAN: Noel Langston M.D. REQUESTING PHYSICIAN: Johnna Ruiz M.D. REASON FOR CONSULTATION: Evaluation of anemia. IDENTIFYING DATA: Dear Dr. Ruiz, The patient is a pleasant 82-year-old female with past medical history significant for CHF, hypertension, hyperlipidemia, diabetes, dementia, atrial fibrillation, on anticoagulation, presented at this time with shortness of breath. No congestion at this time or hypoxemia. Hematology Service was consulted. Chest x-ray showed bilateral pulmonary vascular congestion, noted to have increased anemia with shortness of breath. PAST MEDICAL HISTORY: Diabetes, hypertension, hyperlipidemia, atrial fibrillation, and vascular dementia. PAST SURGICAL HISTORY: None noted. MEDICATIONS: Reviewed. FAMILY HISTORY: Noncontributory. SOCIAL HISTORY: No alcohol, tobacco, or illicit drug use. REVIEW OF SYSTEMS: CONSTITUTIONAL: No fevers, chills, or night sweats. SKIN: No rashes, bumps, or itching. HEENT: No headache or hearing or vision changes. BREASTS: No lumps, pain, or discharge. PULMONARY: No cough, sputum, or shortness of breath. GASTROINTESTINAL: No nausea, vomiting, or diarrhea. GENITOURINARY: No dysuria, frequency, or urgency. MUSCULOSKELETAL: No muscle pain, joint swelling, or trauma. PHYSICAL EXAMINATION: VITAL SIGNS: Reviewed. GENERAL: No distress. PULMONARY: Decreased breath sounds. Some crackles noted. CARDIOVASCULAR: Regular rate. No S3 or S4. ABDOMEN: Soft, nontender, and nondistended. EXTREMITIES: She has 1+ edema. LABORATORY DATA: WBC 7.2, hemoglobin 8.6, hematocrit 27, and platelet count 300,000. ASSESSMENT AND RECOMMENDATIONS: 1. Anemia with hemoglobin of 8.6. Obtain at this time folic acid, ferritin, iron panel, LDH, reticulocyte count, INR, and pathological peripheral smear. patient has chronic disease, we will need to prove at this point the patient has chronic disease. 2. Anticoagulant use. The patient is on Xarelto for atrial fibrillation. 3. Shortness of breath and elevated BNP, potentially concerning for congestive heart failure. 4. echocardiogram by Cardiology. 5. Elevated D-dimer. recommendations by Dr. Miranda. Consider further imaging. 6. Possible gastroesophageal reflux disease. 7. Hyperlipidemia. LDL goal less than 70. I appreciate the consultation. Noel Langston M.D. DR: JATIN JOB#: [id number] CC:
--- NOTE | 2018-02-24 21:31 | General Progress Note ---
Assessment/Plan Problem List: (1) Shortness of breath ICD Codes: R06.02 - Shortness of breath SNOMED: 841810583 (2) Acute exacerbation of CHF (congestive heart failure) ICD Codes: I50.9 - Heart failure, unspecified SNOMED: 24025212 Status: progressing Assessment/Plan sob is improving afebrile chf exacerbation improving Subjective Respiratory: Reports: shortness of breath Allergies: Coded Allergies: No Known Allergies (Unverified , 02/22/18) Objective Last 24 Hour Vital Signs Date Time Temp Pulse Resp B/P (MAP) Pulse Ox O2 Delivery O2 Flow Rate FiO2 02/24/18 20:00 98.2 64 18 164/69 93 Nasal Cannula 3.0 98.2 02/24/18 19:47 Nasal Cannula 3.0 32 02/24/18 19:47 84 18 Nasal Cannula 3.0 32 02/24/18 19:47 94 Venturi Mask 3.0 32 02/24/18 16:00 98.6 66 19 170/65 94 Non-Rebreather 10.0 98.6 02/24/18 16:00 60 02/24/18 12:00 98.0 69 19 169/57 95 Non-Rebreather 10.0 98.0 02/24/18 12:00 64 02/24/18 08:00 61 02/24/18 08:00 97.8 67 20 164/59 91 Non-Rebreather 10.0 97.8 02/24/18 07:20 Venturi Mask 12.0 50 02/24/18 07:20 70 21 Venturi Mask 12.0 50 02/24/18 07:20 92 Venturi Mask 12.0 50 02/24/18 04:00 63 02/24/18 04:00 97.7 68 20 153/59 95 Non-Rebreather 10.0 97.7 02/24/18 00:00 60 02/24/18 00:00 97.8 60 20 150/54 94 Non-Rebreather 10.0 97.8 Intake and Output 02/23/18 02/24/18 19:00 07:00 Intake Total 170 ml Output Total 700 ml Balance -530 ml Intake Oral 170 ml Output Urine Total 700 ml # Voids 2 # Bowel Movements 1 1 Laboratory Tests 02/24/18 07:09: Troponin I 0.001, Pro-B-Type Natriuretic Peptide 1785H 02/24/18 13:33: White Blood Count 6.4, Red Blood Count 3.69L, Hemoglobin 10.0L, Hematocrit 31.8L , Mean Corpuscular Volume 86, Mean Corpuscular Hemoglobin 27.2, Mean Corpuscular Hemoglobin Concent 31.5L, Red Cell Distribution Width 15.8H, Platelet Count 447, Mean Platelet Volume 7.1, Neutrophils (%) (Auto) , Lymphocytes (%) (Auto) , Monocytes (%) (Auto) , Eosinophils (%) (Auto) , Basophils (%) (Auto) , Reticulocyte Count 2.4H, Prothrombin Time 13.0H, Prothromb Time International Ratio 1.2H, Iron Level 18L, Total Iron Binding Capacity 283, Percent Iron Saturation 6L, Unsaturated Iron Binding 265, Ferritin 79, Lactate Dehydrogenase 203, Vitamin B12 Level 347, Folate 34.0 Height (Feet): 4 Height (Inches): 11.00 Weight (Pounds): 139 Neck: supple Cardiovascular: normal rate Respiratory/Chest: lungs clear Johnna Ruiz MD Feb 24, 2018 21:31
[2018-02-25] VITALS: BP 160/58
[2018-02-25 04:00] VITALS: BP 162/58
[2018-02-25] MEDS: NovoLOG Insulin Flexpen SUBQ SCH ×4 (06:56→22:10)
[2018-02-25 07:56] VITALS: BP 138/61
[2018-02-25] MEDS: Xarelto 10mg tab ORAL SCH (08:26)
--- NOTE | 2018-02-25 09:00 | Pulmonology Progress Note ---
Assessment/Plan Problems: (1) Shortness of breath (2) Acute exacerbation of CHF (congestive heart failure) Assessment/Plan ASSESSMENT: The patient is an 82-year-old female with a history of CHF, hypertension, hyperlipidemia, atrial fibrillation, possible dementia, admitted with shortness of breath likely secondary to decompensated heart failure. PROBLEM LIST: 1. Acute hypoxemic respiratory failure. 2. CHF with acute decompensated heart failure. 3. Hypertension. 4. Hyperlipidemia. 5. Diabetes. 6. Atrial fibrillation on anticoagulation. 7. Possible GERD. TREATMENT PLAN: 1. Optimize pulmonary hygiene/mobilize as tolerated. 2. Titrate down FiO2 to keep saturations greater than 90%. 3. P.r.n. bronchodilators. 4. Monitor volumes and renal function, diuresis as tolerated. 5. We will monitor off antibiotics for signs of respiratory precautions. 6. F/U CT-A 7. Aspiration precautions. 8. X-ray should be followed to resolution. 9. DVT prophylaxis. The patient is on anticoagulation. Subjective Allergies: Coded Allergies: No Known Allergies (Unverified , 02/22/18) Subjective -340, less SOB, no cough, no wheezing, no F/C VQ LIP, CT-A rescheduled 2/ IV access Objective Last 24 Hour Vital Signs Date Time Temp Pulse Resp B/P (MAP) Pulse Ox O2 Delivery O2 Flow Rate FiO2 02/25/18 07:56 98.1 80 18 138/61 94 Venturi Mask 5.0 98.1 02/25/18 04:00 60 02/25/18 04:00 97.9 75 19 162/58 92 Room Air 97.9 02/25/18 00:00 63 02/25/18 00:00 98.4 64 18 160/58 95 Room Air 98.4 02/24/18 20:00 65 02/24/18 20:00 98.2 64 18 164/69 93 Nasal Cannula 3.0 98.2 02/24/18 19:47 Nasal Cannula 3.0 32 02/24/18 19:47 84 18 Nasal Cannula 3.0 32 02/24/18 19:47 94 Venturi Mask 3.0 32 02/24/18 16:00 98.6 66 19 170/65 94 Non-Rebreather 10.0 98.6 02/24/18 16:00 60 02/24/18 12:00 98.0 69 19 169/57 95 Non-Rebreather 10.0 98.0 02/24/18 12:00 64 Intake and Output 02/24/18 02/25/18 19:00 07:00 Intake Total 840 ml 120 ml Output Total 1000 ml 300 ml Balance -160 ml -180 ml Intake Oral 840 ml 120 ml Output Urine Total 1000 ml 300 ml # Bowel Movements 1 General Appearance: no acute distress, cachetic HEENT: normocephalic, atraumatic, anicteric, mucous membranes moist Respiratory/Chest: chest wall non-tender, lungs clear, normal breath sounds, no respiratory distress Cardiovascular: normal peripheral pulses, normal rate, regular rhythm Abdomen: normal bowel sounds, soft, non tender, no organomegaly, non distended Extremities: no cyanosis, no clubbing, no edema Microbiology Date/Time Source Procedure Growth Status 02/22/18 22:48 Blood Blood Culture - Preliminary NO GROWTH AFTER 48 HOURS Resulted 02/22/18 22:48 Blood Blood Culture - Preliminary NO GROWTH AFTER 48 HOURS Resulted Laboratory Tests 02/24/18 13:33: White Blood Count 6.4, Red Blood Count 3.69L, Hemoglobin 10.0L, Hematocrit 31.8L , Mean Corpuscular Volume 86, Mean Corpuscular Hemoglobin 27.2, Mean Corpuscular Hemoglobin Concent 31.5L, Red Cell Distribution Width 15.8H, Platelet Count 447, Mean Platelet Volume 7.1, Neutrophils (%) (Auto) , Lymphocytes (%) (Auto) , Monocytes (%) (Auto) , Eosinophils (%) (Auto) , Basophils (%) (Auto) , Reticulocyte Count 2.4H, Prothrombin Time 13.0H, Prothromb Time International Ratio 1.2H, Iron Level 18L, Total Iron Binding Capacity 283, Percent Iron Saturation 6L, Unsaturated Iron Binding 265, Ferritin 79, Lactate Dehydrogenase 203, Vitamin B12 Level 347, Folate 34.0 Current Medications Medications (Trade) Dose Ordered Sig/Carlo Route PRN Reason Start Time Stop Time Status Last Admin Dose Admin Acetaminophen (Tylenol) 500 mg Q4H PRN ORAL Mild Pain/Temp > 100.5 02/23/18 02:00 03/25/18 01:59 Albuterol/ Ipratropium (Albuterol/ Ipratropium) 3 ml Q4H PRN HHN Shortness of Breath 02/23/18 10:30 02/28/18 10:29 02/23/18 11:00 Clonidine HCl (Catapres Tab) 0.1 mg Q2H PRN ORAL For High Blood Pressure 02/23/18 09:45 03/25/18 09:44 02/23/18 10:22 Dextrose (Dextrose 50%) 25 ml STAT PRN IV Hypoglycemia 02/23/18 02:00 03/25/18 01:59 Dextrose (Dextrose 50%) 50 ml STAT PRN IV Hypoglycemia 02/23/18 02:00 03/25/18 01:59 Furosemide (Lasix) 40 mg DAILY IV 02/24/18 09:00 03/26/18 08:59 02/25/18 08:26 Insulin Aspart (NovoLOG) BEFORE MEALS AND HS SUBQ 02/23/18 06:30 03/25/18 06:29 02/25/18 06:56 Iopamidol (Isovue-370 150ml) 150 ml NOW PRN INJ Radiology Procedure 02/24/18 17:15 02/26/18 17:10 Ondansetron HCl (Zofran) 4 mg Q6H PRN IVP Nausea & Vomiting 02/25/18 08:00 03/27/18 07:59 02/25/18 08:28 Rivaroxaban (Xarelto) 10 mg DAILY ORAL 02/24/18 09:00 03/26/18 08:59 02/25/18 08:26 Vinicius Miranda MD Feb 25, 2018 09:00
--- NOTE | 2018-02-25 10:42 | Diagnostic Imaging Report ---
Indication: Abdominal pain Comparison: None Single view of the abdomen obtained Findings: Bowel gas pattern is nonspecific. There is a metallic CBD stent present. No mass, ectopic calcifications, or abnormal gas collections are identified. The bones are unremarkable. Aortoiliac calcifications are present. Pacemaker is noted. Degenerative changes of the lumbar spine are present. Impression: No acute findings
--- NOTE | 2018-02-25 11:48 | General Progress Note ---
Assessment/Plan Status: stable Assessment/Plan 1. Anemia of chronic disease --> anemia workup has been reviewed, will trend daily --> 02/25 Hgb at 10.0 --> Hgb goal >7 2. Anticoagulant use. The patient is on Xarelto for atrial fibrillation. 3. Shortness of breath and elevated BNP, potentially concerning for congestive heart failure. --> sob improving, no wheezing 5. Elevated D-dimer. Recommendations by Dr. Miranda. --> Consider further imaging. 6. Possible gastroesophageal reflux disease. 7. Hyperlipidemia. LDL goal less than 70. Subjective Date patient seen: Feb 25, 2018 Respiratory: Reports: shortness of breath Allergies: Coded Allergies: No Known Allergies (Unverified , 02/22/18) All Systems: reviewed and negative except above Subjective SOB improved, no wheezing. Granddaughter gave consent for CTA. Objective Last 24 Hour Vital Signs Date Time Temp Pulse Resp B/P (MAP) Pulse Ox O2 Delivery O2 Flow Rate FiO2 02/25/18 09:00 Venturi Mask 02/25/18 08:00 74 02/25/18 07:56 98.1 80 18 138/61 94 Venturi Mask 5.0 98.1 02/25/18 04:00 60 02/25/18 04:00 97.9 75 19 162/58 92 Room Air 97.9 02/25/18 00:00 63 02/25/18 00:00 98.4 64 18 160/58 95 Room Air 98.4 02/24/18 20:00 65 02/24/18 20:00 98.2 64 18 164/69 93 Nasal Cannula 3.0 98.2 02/24/18 19:47 Nasal Cannula 3.0 32 02/24/18 19:47 84 18 Nasal Cannula 3.0 32 02/24/18 19:47 94 Venturi Mask 3.0 32 02/24/18 16:00 98.6 66 19 170/65 94 Non-Rebreather 10.0 98.6 02/24/18 16:00 60 02/24/18 12:00 98.0 69 19 169/57 95 Non-Rebreather 10.0 98.0 02/24/18 12:00 64 Intake and Output 02/24/18 02/25/18 19:00 07:00 Intake Total 840 ml 120 ml Output Total 1000 ml 300 ml Balance -160 ml -180 ml Intake Oral 840 ml 120 ml Output Urine Total 1000 ml 300 ml # Bowel Movements 1 Laboratory Tests 02/24/18 13:33: White Blood Count 6.4, Red Blood Count 3.69L, Hemoglobin 10.0L, Hematocrit 31.8L , Mean Corpuscular Volume 86, Mean Corpuscular Hemoglobin 27.2, Mean Corpuscular Hemoglobin Concent 31.5L, Red Cell Distribution Width 15.8H, Platelet Count 447, Mean Platelet Volume 7.1, Neutrophils (%) (Auto) , Lymphocytes (%) (Auto) , Monocytes (%) (Auto) , Eosinophils (%) (Auto) , Basophils (%) (Auto) , Neutrophils % (Manual) 53, Lymphocytes % (Manual) 31, Monocytes % (Manual) 12H, Eosinophils % (Manual) 4H, Basophils % (Manual) 0, Band Neutrophils 0, Platelet Estimate Adequate, Platelet Morphology Normal, Reticulocyte Count 2.4H, Prothrombin Time 13.0H, Prothromb Time International Ratio 1.2H, Iron Level 18L, Total Iron Binding Capacity 283, Percent Iron Saturation 6L, Unsaturated Iron Binding 265, Ferritin 79, Lactate Dehydrogenase 203, Vitamin B12 Level 347, Folate 34.0 Height (Feet): 4 Height (Inches): 11.00 Weight (Pounds): 136 General Appearance: no apparent distress, alert EENT: PERRL/EOMI Neck: normal alignment Cardiovascular: normal peripheral pulses Respiratory/Chest: no respiratory distress Abdomen: no organomegaly Noel Langston MD Feb 25, 2018 11:48
[2018-02-25 12:07] VITALS: BP 142/66
[2018-02-25 12:34] LABS: HEMATOCRIT 30.5 % (37.0-47.0); HEMOGLOBIN 9.6 G/DL (12.0-16.0); MEAN CORPUSCULAR VOLUME 87 FL (80-99); PLATELET COUNT 416 K/UL (150-450); RED BLOOD COUNT 3.51 M/UL (4.20-5.40); RED CELL DISTRIBUTION WIDTH 15.6 % (11.6-14.8); WHITE BLOOD COUNT 15.6 K/UL (4.8-10.8)
[2018-02-25 12:38] LABS: ALANINE AMINOTRANSFERASE 33 U/L (12-78); ALBUMIN 3.1 G/DL (3.4-5.0); ALBUMIN/GLOBULIN RATIO 0.6 (1.0-2.7); ALKALINE PHOSPHATASE 423 U/L (46-116); ANION GAP 12 mmol/L (5-15); ASPARTATE AMINO TRANSFERASE 26 U/L (15-37); BILIRUBIN,TOTAL 0.5 MG/DL (0.2-1.0); BLOOD UREA NITROGEN 12 mg/dL (7-18); CALCIUM 8.8 MG/DL (8.5-10.1); CARBON DIOXIDE 26 MMOL/L (21-32); CHLORIDE 101 MMOL/L (98-107); CREATININE 1.2 MG/DL (0.55-1.30); POTASSIUM 3.6 MMOL/L (3.5-5.1); SODIUM 139 MMOL/L (136-145)
--- NOTE | 2018-02-25 13:06 | General Progress Note ---
Assessment/Plan Status: stable Assessment/Plan MDD anxiety Dementia lacks capacity to make decision The daughter is a decision maker -Zoloft -donepezil -seroquel prn Subjective Date patient seen: Feb 25, 2018 Neurologic/Psychiatric: Reports: anxiety, depressed, emotional problems Allergies: Coded Allergies: No Known Allergies (Unverified , 02/22/18) Subjective the pt lacks capacity to make decisions. the pt refused IV due to pain. The daughter is the decision maker. Objective Last 24 Hour Vital Signs Date Time Temp Pulse Resp B/P (MAP) Pulse Ox O2 Delivery O2 Flow Rate FiO2 02/25/18 12:07 99.8 74 20 142/66 (91) 94 99.8 02/25/18 09:00 Venturi Mask 02/25/18 08:00 74 02/25/18 07:56 98.1 80 18 138/61 94 Venturi Mask 5.0 98.1 02/25/18 04:00 60 02/25/18 04:00 97.9 75 19 162/58 92 Room Air 97.9 02/25/18 00:00 63 02/25/18 00:00 98.4 64 18 160/58 95 Room Air 98.4 02/24/18 20:00 65 02/24/18 20:00 98.2 64 18 164/69 93 Nasal Cannula 3.0 98.2 02/24/18 19:47 Nasal Cannula 3.0 32 02/24/18 19:47 84 18 Nasal Cannula 3.0 32 02/24/18 19:47 94 Venturi Mask 3.0 32 02/24/18 16:00 98.6 66 19 170/65 94 Non-Rebreather 10.0 98.6 02/24/18 16:00 60 Intake and Output 02/24/18 02/25/18 19:00 07:00 Intake Total 840 ml 120 ml Output Total 1000 ml 300 ml Balance -160 ml -180 ml Intake Oral 840 ml 120 ml Output Urine Total 1000 ml 300 ml # Bowel Movements 1 Laboratory Tests 02/24/18 13:33: White Blood Count 6.4, Red Blood Count 3.69L, Hemoglobin 10.0L, Hematocrit 31.8L , Mean Corpuscular Volume 86, Mean Corpuscular Hemoglobin 27.2, Mean Corpuscular Hemoglobin Concent 31.5L, Red Cell Distribution Width 15.8H, Platelet Count 447, Mean Platelet Volume 7.1, Neutrophils (%) (Auto) , Lymphocytes (%) (Auto) , Monocytes (%) (Auto) , Eosinophils (%) (Auto) , Basophils (%) (Auto) , Neutrophils % (Manual) 53, Lymphocytes % (Manual) 31, Monocytes % (Manual) 12H, Eosinophils % (Manual) 4H, Basophils % (Manual) 0, Band Neutrophils 0, Platelet Estimate Adequate, Platelet Morphology Normal, Reticulocyte Count 2.4H, Prothrombin Time 13.0H, Prothromb Time International Ratio 1.2H, Iron Level 18L, Total Iron Binding Capacity 283, Percent Iron Saturation 6L, Unsaturated Iron Binding 265, Ferritin 79, Lactate Dehydrogenase 203, Vitamin B12 Level 347, Folate 34.0 02/25/18 12:05: White Blood Count 15.6#H, Red Blood Count 3.51L, Hemoglobin 9.6L, Hematocrit 30.5L, Mean Corpuscular Volume 87, Mean Corpuscular Hemoglobin 27.4, Mean Corpuscular Hemoglobin Concent 31.5L, Red Cell Distribution Width 15.6H, Platelet Count 416, Mean Platelet Volume 6.8, Neutrophils (%) (Auto) , Lymphocytes (%) (Auto) , Monocytes (%) (Auto) , Eosinophils (%) (Auto) , Basophils (%) (Auto) , Neutrophils % (Manual) 91H, Lymphocytes % (Manual) 4L, Monocytes % (Manual) 5, Eosinophils % (Manual) 0, Basophils % (Manual) 0, Band Neutrophils 0, Platelet Estimate Adequate, Platelet Morphology Normal, Differential Total Cells Counted 100, Hypochromasia 2+, Anisocytosis 1+, Sodium Level 139, Potassium Level 3.6, Chloride Level 101, Carbon Dioxide Level 26, Anion Gap 12, Blood Urea Nitrogen 12, Creatinine 1.2, Estimat Glomerular Filtration Rate , Glucose Level 202H, Calcium Level 8.8, Total Bilirubin 0.5, Aspartate Amino Transf (AST/SGOT) 26, Alanine Aminotransferase (ALT/SGPT) 33, Alkaline Phosphatase 423H, Total Protein 8.2, Albumin 3.1L, Globulin 5.1, Albumin/Globulin Ratio 0.6L Height (Feet): 4 Height (Inches): 11.00 Weight (Pounds): 136 General Appearance: no apparent distress, alert, confused Farhadi,Pantea MD Feb 25, 2018 13:06
--- NOTE | 2018-02-25 13:08 | Cardiology Report ---
APPROVED REPORT EXAM: Two-dimensional and M-mode echocardiogram with Doppler and color Doppler. INDICATION ARRYTHMIA M-Mode DIMENSIONS IVSd1.0 (0.7-1.1cm)Left Atrium (MM)5.6 (1.6-4.0cm) LVDd5.9 (3.5-5.6cm)Aortic Root3.4 (2.0-3.7cm) PWd0.9 (0.7-1.1cm)Aortic Cusp Exc.1.3 (1.5-2.0cm) IVSs1.3 cm LVDs3.8 (2.5-4.0cm) PWs1.0 cm Normal left ventricular chamber size, systolic function and wall motion . Left ventricular ejection fraction estimated to be 55-60%. Mild left ventricular hypertrophy by 2-D. Trace posteriror pericardial effusion. Mild left atrial enlargements . Right cardiac chamber sizes are within normal limits. Focal aortic valve sclerosis with reduced cusp excursion, c/w A.S. Thickened mitral valve leaflets with normal excursion. Heavy calcification of Mitral annulus and aortic root. Pulmonic valve not well visualized. Normal tricuspid valve structure. IVC at normal size with physiologic collapse . A color flow and spectral Doppler study was performed and revealed: No aortic regurgitation. Peak aortic valve gradient of 36 mm Hg and a mean of 16 mmHg. Aortic valve area 1.3 cm2 calculated by continuity equation, c/w moderate A.S. Mild mitral regurgitation. Mild tricuspid regurgitation. Normal left ventricular diastolic function . Tricuspid systolic velocities suggests peak right ventricular systolic pressure of 46mmHg,consistent with moderate pulmonary hypertension . Trace Pulmonic regurgitation present.
--- NOTE | 2018-02-25 13:26 | General Progress Note ---
Assessment/Plan Problem List: (1) Shortness of breath ICD Codes: R06.02 - Shortness of breath SNOMED: 354299312 (2) Acute exacerbation of CHF (congestive heart failure) ICD Codes: I50.9 - Heart failure, unspecified SNOMED: 76111522 Status: progressing Assessment/Plan sob is improving vomitted today ordered kub and consult w dr stringer chf exacerbation improving Subjective Gastrointestinal/Abdominal: Reports: nausea, vomiting Allergies: Coded Allergies: No Known Allergies (Unverified , 02/22/18) Objective Last 24 Hour Vital Signs Date Time Temp Pulse Resp B/P (MAP) Pulse Ox O2 Delivery O2 Flow Rate FiO2 02/25/18 12:07 99.8 74 20 142/66 (91) 94 99.8 02/25/18 09:00 Venturi Mask 02/25/18 08:00 74 02/25/18 07:56 98.1 80 18 138/61 94 Venturi Mask 5.0 98.1 02/25/18 04:00 60 02/25/18 04:00 97.9 75 19 162/58 92 Room Air 97.9 02/25/18 00:00 63 02/25/18 00:00 98.4 64 18 160/58 95 Room Air 98.4 02/24/18 20:00 65 02/24/18 20:00 98.2 64 18 164/69 93 Nasal Cannula 3.0 98.2 02/24/18 19:47 Nasal Cannula 3.0 32 02/24/18 19:47 84 18 Nasal Cannula 3.0 32 02/24/18 19:47 94 Venturi Mask 3.0 32 02/24/18 16:00 98.6 66 19 170/65 94 Non-Rebreather 10.0 98.6 02/24/18 16:00 60 Intake and Output 02/24/18 02/25/18 19:00 07:00 Intake Total 840 ml 120 ml Output Total 1000 ml 300 ml Balance -160 ml -180 ml Intake Oral 840 ml 120 ml Output Urine Total 1000 ml 300 ml # Bowel Movements 1 Laboratory Tests 02/24/18 13:33: White Blood Count 6.4, Red Blood Count 3.69L, Hemoglobin 10.0L, Hematocrit 31.8L , Mean Corpuscular Volume 86, Mean Corpuscular Hemoglobin 27.2, Mean Corpuscular Hemoglobin Concent 31.5L, Red Cell Distribution Width 15.8H, Platelet Count 447, Mean Platelet Volume 7.1, Neutrophils (%) (Auto) , Lymphocytes (%) (Auto) , Monocytes (%) (Auto) , Eosinophils (%) (Auto) , Basophils (%) (Auto) , Neutrophils % (Manual) 53, Lymphocytes % (Manual) 31, Monocytes % (Manual) 12H, Eosinophils % (Manual) 4H, Basophils % (Manual) 0, Band Neutrophils 0, Platelet Estimate Adequate, Platelet Morphology Normal, Reticulocyte Count 2.4H, Prothrombin Time 13.0H, Prothromb Time International Ratio 1.2H, Iron Level 18L, Total Iron Binding Capacity 283, Percent Iron Saturation 6L, Unsaturated Iron Binding 265, Ferritin 79, Lactate Dehydrogenase 203, Vitamin B12 Level 347, Folate 34.0 02/25/18 12:05: White Blood Count 15.6#H, Red Blood Count 3.51L, Hemoglobin 9.6L, Hematocrit 30.5L, Mean Corpuscular Volume 87, Mean Corpuscular Hemoglobin 27.4, Mean Corpuscular Hemoglobin Concent 31.5L, Red Cell Distribution Width 15.6H, Platelet Count 416, Mean Platelet Volume 6.8, Neutrophils (%) (Auto) , Lymphocytes (%) (Auto) , Monocytes (%) (Auto) , Eosinophils (%) (Auto) , Basophils (%) (Auto) , Neutrophils % (Manual) 91H, Lymphocytes % (Manual) 4L, Monocytes % (Manual) 5, Eosinophils % (Manual) 0, Basophils % (Manual) 0, Band Neutrophils 0, Platelet Estimate Adequate, Platelet Morphology Normal, Differential Total Cells Counted 100, Hypochromasia 2+, Anisocytosis 1+, Sodium Level 139, Potassium Level 3.6, Chloride Level 101, Carbon Dioxide Level 26, Anion Gap 12, Blood Urea Nitrogen 12, Creatinine 1.2, Estimat Glomerular Filtration Rate , Glucose Level 202H, Calcium Level 8.8, Total Bilirubin 0.5, Aspartate Amino Transf (AST/SGOT) 26, Alanine Aminotransferase (ALT/SGPT) 33, Alkaline Phosphatase 423H, Total Protein 8.2, Albumin 3.1L, Globulin 5.1, Albumin/Globulin Ratio 0.6L Height (Feet): 4 Height (Inches): 11.00 Weight (Pounds): 136 Cardiovascular: normal rate Respiratory/Chest: lungs clear Abdomen: soft Johnna Ruiz MD Feb 25, 2018 13:26
--- NOTE | 2018-02-25 14:17 | Diagnostic Imaging Report ---
APPROVED REPORT CPT Code: 43489 Present Symptoms Shortness of breath BILATERAL: Imaging reveals a patent deep venous system bilaterally. There is no evidence of thrombus within the femoral, popliteal or tibial segments. The greater saphenous veins are also within normal limits. Doppler indicates normal spontaneous flow within these segments.
--- NOTE | 2018-02-25 14:23 | Cardiology Report ---
APPROVED REPORT EKG Measurement Heart [id number] Normal sinus rhythm Nonspecific T wave abnormality Abnormal ECG
--- NOTE | 2018-02-25 15:31 | Cardiac Electrophysiology PN ---
Assessment/Plan Assessment/Plan 1. Status post permanent pacemaker implantation. The patient's EKG showed the patient is atrially paced at rate of 60 with nonspecific T-wave abnormality. We will try to find the brand of the pacemaker for interrogation. 2. Shortness of breath and elevated BNP likely secondary to congestive heart failure. EF 55%. On Lasix 40 mg IV daily. 3. History of paroxysmal atrial fibrillation, on a Xarelto, currently in sinus rhythm. 4. Elevated D-dimer. Had V/Q scan that was intermediate probability. Chest Ct pending. Follow up Dr. Miranda's 5. Vomiting. KUB is negative. FU Dr Hurtado Subjective Subjective Not eating much as she is vomiting. No CP or SOB in SR. Had CT chest with contrast to R/O PE. Objective Last 24 Hour Vital Signs Date Time Temp Pulse Resp B/P (MAP) Pulse Ox O2 Delivery O2 Flow Rate FiO2 02/25/18 12:07 99.8 74 20 142/66 (91) 94 99.8 02/25/18 12:00 94 02/25/18 09:00 Venturi Mask 02/25/18 08:00 74 02/25/18 07:56 98.1 80 18 138/61 94 Venturi Mask 5.0 98.1 02/25/18 04:00 60 02/25/18 04:00 97.9 75 19 162/58 92 Room Air 97.9 02/25/18 00:00 63 02/25/18 00:00 98.4 64 18 160/58 95 Room Air 98.4 02/24/18 20:00 65 02/24/18 20:00 98.2 64 18 164/69 93 Nasal Cannula 3.0 98.2 02/24/18 19:47 Nasal Cannula 3.0 32 02/24/18 19:47 84 18 Nasal Cannula 3.0 32 02/24/18 19:47 94 Venturi Mask 3.0 32 02/24/18 16:00 98.6 66 19 170/65 94 Non-Rebreather 10.0 98.6 02/24/18 16:00 60 Intake and Output 02/24/18 02/25/18 19:00 07:00 Intake Total 840 ml 120 ml Output Total 1000 ml 300 ml Balance -160 ml -180 ml Intake Oral 840 ml 120 ml Output Urine Total 1000 ml 300 ml # Bowel Movements 1 Laboratory Tests Test 02/25/18 12:05 White Blood Count 15.6 K/UL (4.8-10.8) #H Red Blood Count 3.51 M/UL (4.20-5.40) L Hemoglobin 9.6 G/DL (12.0-16.0) L Hematocrit 30.5 % (37.0-47.0) L Mean Corpuscular Volume 87 FL (80-99) Mean Corpuscular Hemoglobin 27.4 PG (27.0-31.0) Mean Corpuscular Hemoglobin Concent 31.5 G/DL (32.0-36.0) L Red Cell Distribution Width 15.6 % (11.6-14.8) H Platelet Count 416 K/UL (150-450) Mean Platelet Volume 6.8 FL (6.5-10.1) Neutrophils (%) (Auto) % (45.0-75.0) Lymphocytes (%) (Auto) % (20.0-45.0) Monocytes (%) (Auto) % (1.0-10.0) Eosinophils (%) (Auto) % (0.0-3.0) Basophils (%) (Auto) % (0.0-2.0) Differential Total Cells Counted 100 Neutrophils % (Manual) 91 % (45-75) H Lymphocytes % (Manual) 4 % (20-45) L Monocytes % (Manual) 5 % (1-10) Eosinophils % (Manual) 0 % (0-3) Basophils % (Manual) 0 % (0-2) Band Neutrophils 0 % (0-8) Platelet Estimate Adequate Platelet Morphology Normal Hypochromasia 2+ Anisocytosis 1+ Sodium Level 139 MMOL/L (136-145) Potassium Level 3.6 MMOL/L (3.5-5.1) Chloride Level 101 MMOL/L (98-107) Carbon Dioxide Level 26 MMOL/L (21-32) Anion Gap 12 mmol/L (5-15) Blood Urea Nitrogen 12 mg/dL (7-18) Creatinine 1.2 MG/DL (0.55-1.30) Estimat Glomerular Filtration Rate mL/min (>60) Glucose Level 202 MG/DL (74-106) H Calcium Level 8.8 MG/DL (8.5-10.1) Total Bilirubin 0.5 MG/DL (0.2-1.0) Aspartate Amino Transf (AST/SGOT) 26 U/L (15-37) Alanine Aminotransferase (ALT/SGPT) 33 U/L (12-78) Alkaline Phosphatase 423 U/L (46-116) H Total Protein 8.2 G/DL (6.4-8.2) Albumin 3.1 G/DL (3.4-5.0) L Globulin 5.1 g/dL Albumin/Globulin Ratio 0.6 (1.0-2.7) L Microbiology Date/Time Source Procedure Growth Status 02/22/18 22:48 Blood Blood Culture - Preliminary NO GROWTH AFTER 48 HOURS Resulted 02/22/18 22:48 Blood Blood Culture - Preliminary NO GROWTH AFTER 48 HOURS Resulted Objective HEAD AND NECK: No JVD LUNGS: Clear. CARDIOVASCULAR: Regular S1 and S2. Pacemaker in left subclavian. ABDOMEN: Soft. EXTREMITIES: No pitting edema. Parviz Reid MD Feb 25, 2018 15:31
--- NOTE | 2018-02-25 15:33 | Diagnostic Imaging Report ---
Indication: Chest pain Technique: Continuous helical transaxial imaging of the chest was obtained from the thoracic inlet to the upper abdomen during rapid intravenous contrast administration. Arterial phase of enhancement obtained. Coronal 2-D reformats were also obtained and maximum intensity projection images in multiple planes. Study obtained in a Siemens sensation [address] Automatic Exposure Control was utilized. Total Dose length Product (DLP): 789.[address] Dose Index Volume (CTDIvol): 25.89 mGy Comparison: None Findings: The pulmonary artery is well opacified and shows no filling defects. There is no adenopathy, pleural or pericardial effusions are identified. There is no aortic dissection or aneurysm identified within the chest. Aorta is moderately calcified consistent with atherosclerotic disease. There is a small left pleural effusion and a moderate right pleural effusion. There is posterior basilar atelectasis present. Some breathing motion limits evaluation. Pacemaker is present. Generalized cardiomegaly is noted. IMPRESSION: No evidence of pulmonary embolus, aortic dissection or aneurysm. Atherosclerotic disease of the aorta noted. Moderate right pleural effusion and small left pleural effusion. Associated posterior basal atelectasis. Breathing motion artifacts. Pacemaker The CT scanner at [facility] is accredited by the [employer] and the scans are performed using dose optimization techniques as appropriate to a performed exam including Automatic Exposure control.
[2018-02-25] MEDS ORDERED: D5NS 1,000 ML IV SCH (16:00)
[2018-02-25 16:02] VITALS: BP 150/56
--- NOTE | 2018-02-25 17:06 | GI Initial Consult Note ---
History of Present Illness General Date patient seen: Feb 25, 2018 Time patient seen: 16:58 Reason for Hospitalization: Dyspnea/Respdistress Referring physician: DIONISIO GLEZ Reason for Consultation: VOMITING Present Illness HPI Patient is an 82-year-old female presented for increased difficulty breathing. Patient was noted to have low oxygen saturation by EMS and was transported hospital for further evaluation and treatment. Patient had prior history of diabetes and hypertension. She been taking Lasix for congestive heart failure. She was sent in from urgent care. GI consulted for vomiting. ROS limited, pt seen awake alert NAD. Per report, patient had episode of vomiting. Presents today with leukocytosis, normocytic normochromic anemia, iron deficiency and elevated alkaline phosphatase. KUB noted with a CBD metallic stent, otherwise no acute process. Unknown history of endoscopy / colonoscopy. Home Meds Reported Medications Insulin Glargine (LANTUS) 100 Unit/1 Ml Insuln.pen, 30 SUBQ BEFORE LUNCH, #1 EA 0 Refills 02/23/18 Amlodipine Besylate (Norvasc) 10 Mg Tablet, 10 MG ORAL DAILY, TAB 02/23/18 Donepezil Hcl* (DONEPEZIL HCL*) 10 Mg Tab.rapdis, 10 MG ORAL BEDTIME, TAB 02/23/18 Torsemide* (DEMADEX*) 20 Mg Tablet, 20 MG ORAL DAILY, TAB 0 Refills 02/23/18 Metoprolol Tartrate* (METOPROLOL TARTRATE*) 100 Mg Tablet, 100 MG ORAL EVERY 12 HOURS, TAB 02/23/18 Valsartan (DIOVAN) 80 Mg Tab, 80 MG ORAL DAILY, TAB 02/23/18 Amiodarone Hcl* (CORDARONE*) 200 Mg Tablet, 200 MG ORAL DAILY, TAB 02/23/18 Rivaroxaban (XARELTO*) 10 Mg Tablet, 10 MG ORAL DAILY, #30 TAB 0 Refills 02/23/18 Sertraline Hcl* (ZOLOFT*) 50 Mg Tablet, 50 MG ORAL DAILY, TAB 02/23/18 Furosemide* (LASIX*) 20 Mg Tablet, 20 MG ORAL DAILY, TAB 02/23/18 Aspirin (Aspirin) 81 Mg Tab.chew, 81 MG PO, TAB 02/23/18 Discontinued Reported Medications Amiodarone Hcl (AMIODARONE HCL) 100 Mg Tablet, 100 MG ORAL EVERY 8 HOURS, TAB 02/23/18 Med list reviewed/reconciled: Yes Allergies: Coded Allergies: No Known Allergies (Unverified , 02/22/18) Patient History Limited by: medical condition History Provided By: Medical Record PMH Narrative Past Medical History: see triage record Last Menstrual Period: n/a Reviewed Nursing Documentation: PMH: Agreed; PSxH: Agreed Nursing Documentation-PMH Hx Hypertension: Yes Hx Pacemaker: Yes Hx Diabetes: Yes - DM II Social History: Denies: smoking, alcohol use, drug use, other Review of Systems All Other Systems: limited Physical Exam Vital Signs Date Time Temp Pulse Resp B/P (MAP) Pulse Ox O2 Delivery O2 Flow Rate FiO2 02/22/18 22:02 99.0 61 18 96/50 100 Non-Rebreather 100 99.0 02/23/18 00:29 2.0 Sp02 EP Interpretation: reviewed, normal Labs Laboratory Tests Test 02/25/18 12:05 White Blood Count 15.6 K/UL (4.8-10.8) #H Red Blood Count 3.51 M/UL (4.20-5.40) L Hemoglobin 9.6 G/DL (12.0-16.0) L Hematocrit 30.5 % (37.0-47.0) L Mean Corpuscular Volume 87 FL (80-99) Mean Corpuscular Hemoglobin 27.4 PG (27.0-31.0) Mean Corpuscular Hemoglobin Concent 31.5 G/DL (32.0-36.0) L Red Cell Distribution Width 15.6 % (11.6-14.8) H Platelet Count 416 K/UL (150-450) Mean Platelet Volume 6.8 FL (6.5-10.1) Neutrophils (%) (Auto) % (45.0-75.0) Lymphocytes (%) (Auto) % (20.0-45.0) Monocytes (%) (Auto) % (1.0-10.0) Eosinophils (%) (Auto) % (0.0-3.0) Basophils (%) (Auto) % (0.0-2.0) Differential Total Cells Counted 100 Neutrophils % (Manual) 91 % (45-75) H Lymphocytes % (Manual) 4 % (20-45) L Monocytes % (Manual) 5 % (1-10) Eosinophils % (Manual) 0 % (0-3) Basophils % (Manual) 0 % (0-2) Band Neutrophils 0 % (0-8) Platelet Estimate Adequate Platelet Morphology Normal Hypochromasia 2+ Anisocytosis 1+ Sodium Level 139 MMOL/L (136-145) Potassium Level 3.6 MMOL/L (3.5-5.1) Chloride Level 101 MMOL/L (98-107) Carbon Dioxide Level 26 MMOL/L (21-32) Anion Gap 12 mmol/L (5-15) Blood Urea Nitrogen 12 mg/dL (7-18) Creatinine 1.2 MG/DL (0.55-1.30) Estimat Glomerular Filtration Rate mL/min (>60) Glucose Level 202 MG/DL (74-106) H Calcium Level 8.8 MG/DL (8.5-10.1) Total Bilirubin 0.5 MG/DL (0.2-1.0) Aspartate Amino Transf (AST/SGOT) 26 U/L (15-37) Alanine Aminotransferase (ALT/SGPT) 33 U/L (12-78) Alkaline Phosphatase 423 U/L (46-116) H Total Protein 8.2 G/DL (6.4-8.2) Albumin 3.1 G/DL (3.4-5.0) L Globulin 5.1 g/dL Albumin/Globulin Ratio 0.6 (1.0-2.7) L General Appearance: well appearing, no apparent distress, alert Head: normocephalic EENT: PERRL/EOMI, normal ENT inspection Neck: supple Respiratory: normal breath sounds, no respiratory distress Cardiovascular: normal rate Gastrointestinal: normal inspection, non tender, soft, normal bowel sounds, non -distended Rectal: deferred Genitourinary: no CVA tenderness Musculoskeletal: normal inspection, back normal Neurologic: alert, responsive Skin: normal inspection, normal color, no rash, warm/dry, palpation normal, well hydrated Lymphatic: normal inspection, no adenopathy Current Medications Current Medications Medications (Trade) Dose Ordered Sig/Carlo Route PRN Reason Start Time Stop Time Status Last Admin Dose Admin Acetaminophen (Tylenol) 500 mg Q4H PRN ORAL Mild Pain/Temp > 100.5 02/23/18 02:00 03/25/18 01:59 Albuterol/ Ipratropium (Albuterol/ Ipratropium) 3 ml Q4H PRN HHN Shortness of Breath 02/23/18 10:30 02/28/18 10:29 02/23/18 11:00 Clonidine HCl (Catapres Tab) 0.1 mg Q2H PRN ORAL For High Blood Pressure 02/23/18 09:45 03/25/18 09:44 02/23/18 10:22 Dextrose (Dextrose 50%) 25 ml STAT PRN IV Hypoglycemia 02/23/18 02:00 03/25/18 01:59 Dextrose (Dextrose 50%) 50 ml STAT PRN IV Hypoglycemia 02/23/18 02:00 03/25/18 01:59 Furosemide (Lasix) 40 mg DAILY IV 02/24/18 09:00 03/26/18 08:59 02/25/18 08:26 Insulin Aspart (NovoLOG) BEFORE MEALS AND HS SUBQ 02/23/18 06:30 03/25/18 06:29 02/25/18 11:35 Iopamidol (Isovue-370 150ml) 150 ml NOW PRN INJ Radiology Procedure 02/24/18 17:15 02/26/18 17:10 Ondansetron HCl (Zofran) 4 mg Q6H PRN IVP Nausea & Vomiting 02/25/18 08:00 03/27/18 07:59 02/25/18 08:28 Rivaroxaban (Xarelto) 10 mg DAILY ORAL 02/24/18 09:00 03/26/18 08:59 02/25/18 08:26 Sodium 1,000 ml @ 75 mls/hr [id number] IV 02/25/18 17:00 03/27/18 16:59 GI: Plan Problems: (1) Gastroparesis due to DM (2) Vomiting (3) Iron deficiency (4) Anemia Plan KUB reviewed >> negative findings anemia work up reviewed >> iron deficiency vomiting possibly due to gastroparesis 2/2 DM start low dose reglan 5mg ATC zofran prn for nausea ppi venofer DM management trend alkaline phos fu labs pt is on xarelto Discussed with Dr. Hurtado. Thank you for this patient referral, we will follow. The patient was seen and examined at bedside and all new and available data was reviewed in the patients chart. I agree with the above findings, impression and plan. (Patient seen earlier today. Signature stamp does not reflect patient encounter time.). - MD Ilda Garcia AnhNaseem NOE Feb 25, 2018 17:06
[2018-02-25] MEDS ORDERED: Metoclopramide 10mg/2ml Inj IVP PRN (17:15)
[2018-02-25] MEDS: 1/2NS w/KCl 20mEq 1000ml 1,000 ML IV SCH (17:18)
[2018-02-25 20:00] VITALS: BP 150/66
[2018-02-25] MEDS: Acetaminophen 500mg (ES) tab ORAL PRN (22:08)
[2018-02-26] VITALS: BP 156/55
[2018-02-26 04:00] VITALS: BP 153/55
[2018-02-26] MEDS: 1/2NS w/KCl 20mEq 1000ml 1,000 ML IV SCH (05:41)
[2018-02-26] MEDS: NovoLOG Insulin Flexpen SUBQ SCH ×4 (05:42→21:00)
[2018-02-26 08:00] VITALS: BP 136/59
--- NOTE | 2018-02-26 08:05 | General Progress Note ---
Assessment/Plan Problem List: (1) DM (diabetes mellitus) ICD Codes: E11.9 - Type 2 diabetes mellitus without complications SNOMED: 17188451 (2) A-fib ICD Codes: I48.91 - Unspecified atrial fibrillation SNOMED: 23073982 (3) Pacemaker ICD Codes: Z95.0 - Presence of cardiac pacemaker SNOMED: 000620545 (4) Pleural effusion ICD Codes: J90 - Pleural effusion, not elsewhere classified SNOMED: 79389132 (5) Elevated alkaline phosphatase measurement ICD Codes: R74.8 - Abnormal levels of other serum enzymes SNOMED: 382080594 (6) Shortness of breath ICD Codes: R06.02 - Shortness of breath SNOMED: 259151614 (7) Iron deficiency ICD Codes: E61.1 - Iron deficiency SNOMED: 30835576 (8) Anemia ICD Codes: D64.9 - Anemia, unspecified SNOMED: 446043840 (9) Vomiting ICD Codes: R11.10 - Vomiting, unspecified SNOMED: 376626892 (10) Gastroparesis due to DM ICD Codes: 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; K31.84 - Gastroparesis SNOMED: 42916580, 511586091 Assessment/Plan reglan venofer DM control fu stool ob tumor markers thoracentesis>>defer to pulmonary abd us needs EGd and colonoscopy when more stable Subjective ROS Limited/Unobtainable: Yes Allergies: Coded Allergies: No Known Allergies (Unverified , 02/22/18) Subjective no c/o Objective Last 24 Hour Vital Signs Date Time Temp Pulse Resp B/P (MAP) Pulse Ox O2 Delivery O2 Flow Rate FiO2 02/26/18 07:21 93 Venturi Mask 10.0 45 02/26/18 07:21 69 20 Venturi Mask 10.0 45 02/26/18 07:21 Venturi Mask 10.0 45 02/26/18 04:00 98.9 84 19 153/55 (87) 93 98.9 02/26/18 04:00 60 02/26/18 00:00 64 02/26/18 00:00 98.3 60 18 156/55 (88) 93 98.3 02/25/18 23:07 98.4 02/25/18 22:08 100.0 02/25/18 21:00 Venturi Mask 02/25/18 20:00 100.0 66 20 150/66 (94) 95 100.0 02/25/18 20:00 60 02/25/18 19:53 Venturi Mask 10.0 45 02/25/18 19:52 64 20 Venturi Mask 10.0 45 02/25/18 19:52 93 Venturi Mask 10.0 45 02/25/18 16:02 97.2 75 20 150/56 (87) 92 97.2 02/25/18 16:00 73 02/25/18 12:07 99.8 74 20 142/66 (91) 94 99.8 02/25/18 12:00 94 02/25/18 09:00 Venturi Mask Intake and Output 02/25/18 02/26/18 19:00 07:00 Intake Total 540 ml 1088.75 ml Balance 540 ml 1088.75 ml Intake Oral 465 ml 240 ml IV Total 75 ml 848.75 ml # Voids 5 2 # Bowel Movements 1 Laboratory Tests 02/25/18 12:05: White Blood Count 15.6#H, Red Blood Count 3.51L, Hemoglobin 9.6L, Hematocrit 30.5L, Mean Corpuscular Volume 87, Mean Corpuscular Hemoglobin 27.4, Mean Corpuscular Hemoglobin Concent 31.5L, Red Cell Distribution Width 15.6H, Platelet Count 416, Mean Platelet Volume 6.8, Neutrophils (%) (Auto) , Lymphocytes (%) (Auto) , Monocytes (%) (Auto) , Eosinophils (%) (Auto) , Basophils (%) (Auto) , Differential Total Cells Counted 100, Neutrophils % ( Manual) 91H, Lymphocytes % (Manual) 4L, Monocytes % (Manual) 5, Eosinophils % ( Manual) 0, Basophils % (Manual) 0, Band Neutrophils 0, Platelet Estimate Adequate, Platelet Morphology Normal, Hypochromasia 2+, Anisocytosis 1+, Sodium Level 139, Potassium Level 3.6, Chloride Level 101, Carbon Dioxide Level 26, Anion Gap 12, Blood Urea Nitrogen 12, Creatinine 1.2, Estimat Glomerular Filtration Rate , Glucose Level 202H, Calcium Level 8.8, Total Bilirubin 0.5, Aspartate Amino Transf (AST/SGOT) 26, Alanine Aminotransferase (ALT/SGPT) 33, Alkaline Phosphatase 423H, Total Protein 8.2, Albumin 3.1L, Globulin 5.1, Albumin/Globulin Ratio 0.6L Height (Feet): 4 Height (Inches): 11.00 Weight (Pounds): 137 General Appearance: alert EENT: normal ENT inspection Neck: supple Cardiovascular: normal rate Respiratory/Chest: decreased breath sounds Abdomen: normal bowel sounds, non tender, soft Extremities: non-tender Claudio Hurtado MD Feb 26, 2018 08:05
[2018-02-26] MEDS: Docusate 100mg cap ORAL SCH ×2 (08:48→17:09)
[2018-02-26 08:49] LABS: BASOPHILS % (AUTO) 0.4 % (0.0-2.0); EOSINOPHILS % (AUTO) 2.6 % (0.0-3.0); HEMATOCRIT 31.8 % (37.0-47.0); HEMOGLOBIN 10.2 G/DL (12.0-16.0); LYMPHOCYTES % (AUTO) 26.1 % (20.0-45.0); MEAN CORPUSCULAR VOLUME 87 FL (80-99); MONOCYTES % (AUTO) 8.6 % (1.0-10.0); NEUTROPHILS % (AUTO) 62.3 % (45.0-75.0); PLATELET COUNT 427 K/UL (150-450); RED BLOOD COUNT 3.65 M/UL (4.20-5.40); RED CELL DISTRIBUTION WIDTH 15.8 % (11.6-14.8)
[2018-02-26] MEDS: Xarelto 10mg tab ORAL SCH (08:49)
[2018-02-26 09:21] LABS: ALANINE AMINOTRANSFERASE 31 U/L (12-78); ALBUMIN 2.9 G/DL (3.4-5.0); ALBUMIN/GLOBULIN RATIO 0.5 (1.0-2.7); ALKALINE PHOSPHATASE 454 U/L (46-116); ANION GAP 4 mmol/L (5-15); ASPARTATE AMINO TRANSFERASE 44 U/L (15-37); BILIRUBIN,TOTAL 0.5 MG/DL (0.2-1.0); BLOOD UREA NITROGEN 14 mg/dL (7-18); CALCIUM 8.6 MG/DL (8.5-10.1); CARBON DIOXIDE 29 MMOL/L (21-32); CHLORIDE 104 MMOL/L (98-107); CREATININE 1.3 MG/DL (0.55-1.30); POTASSIUM 4.5 MMOL/L (3.5-5.1); SODIUM 137 MMOL/L (136-145)
--- NOTE | 2018-02-26 09:52 | Pulmonology Progress Note ---
Assessment/Plan Problems: (1) Shortness of breath (2) Acute exacerbation of CHF (congestive heart failure) Assessment/Plan ASSESSMENT: The patient is an 82-year-old female with a history of CHF, hypertension, hyperlipidemia, atrial fibrillation, possible dementia, admitted with shortness of breath likely secondary to decompensated heart failure. PROBLEM LIST: 1. Acute hypoxemic respiratory failure. 2. CHF with acute decompensated heart failure. 3. Hypertension. 4. Hyperlipidemia. 5. Diabetes. 6. Atrial fibrillation on anticoagulation. 7. Possible GERD. 8. Moderate R and small L pleural effusion 9. Atelectasis TREATMENT PLAN: 1. Optimize pulmonary hygiene/mobilize as tolerated. 2. Titrate down FiO2 to keep saturations greater than 90%. 3. P.r.n. bronchodilators. 4. Monitor volumes and renal function, diuresis as tolerated. D/C IVF 5. Monitor off antibiotics for signs of respiratory precautions. 6. Thoracentesis evaluation 7. Aspiration precautions. 8. F/U GI recs, IV IRON, F/u US, possible ENDOSCOPY to follow 9. DVT prophylaxis. The patient is on anticoagulation. Subjective Allergies: Coded Allergies: No Known Allergies (Unverified , 02/22/18) Subjective O2 needs unchanged, AFVSS CT with mod R and small L effusion, no PE, Atx @ R basel No cough, no SOB, no F/C Seen by GI, abd US underway Objective Last 24 Hour Vital Signs Date Time Temp Pulse Resp B/P (MAP) Pulse Ox O2 Delivery O2 Flow Rate FiO2 02/26/18 07:21 93 Venturi Mask 10.0 45 02/26/18 07:21 69 20 Venturi Mask 10.0 45 02/26/18 07:21 Venturi Mask 10.0 45 02/26/18 04:00 98.9 84 19 153/55 (87) 93 98.9 02/26/18 04:00 60 02/26/18 00:00 64 02/26/18 00:00 98.3 60 18 156/55 (88) 93 98.3 02/25/18 23:07 98.4 02/25/18 22:08 100.0 02/25/18 21:00 Venturi Mask 02/25/18 20:00 100.0 66 20 150/66 (94) 95 100.0 02/25/18 20:00 60 02/25/18 19:53 Venturi Mask 10.0 45 02/25/18 19:52 64 20 Venturi Mask 10.0 45 02/25/18 19:52 93 Venturi Mask 10.0 45 02/25/18 16:02 97.2 75 20 150/56 (87) 92 97.2 02/25/18 16:00 73 02/25/18 12:07 99.8 74 20 142/66 (91) 94 99.8 02/25/18 12:00 94 Intake and Output 02/25/18 02/26/18 19:00 07:00 Intake Total 540 ml 1088.75 ml Balance 540 ml 1088.75 ml Intake Oral 465 ml 240 ml IV Total 75 ml 848.75 ml # Voids 5 2 # Bowel Movements 1 General Appearance: no acute distress, cachetic HEENT: normocephalic, atraumatic, anicteric, mucous membranes moist Respiratory/Chest: chest wall non-tender, lungs clear, normal breath sounds, no respiratory distress, no accessory muscle use Cardiovascular: normal peripheral pulses, normal rate, regular rhythm Abdomen: normal bowel sounds, soft, non tender, no organomegaly, non distended Extremities: no cyanosis, no clubbing, no edema Laboratory Tests 02/25/18 12:05: White Blood Count 15.6#H, Red Blood Count 3.51L, Hemoglobin 9.6L, Hematocrit 30.5L, Mean Corpuscular Volume 87, Mean Corpuscular Hemoglobin 27.4, Mean Corpuscular Hemoglobin Concent 31.5L, Red Cell Distribution Width 15.6H, Platelet Count 416, Mean Platelet Volume 6.8, Neutrophils (%) (Auto) , Lymphocytes (%) (Auto) , Monocytes (%) (Auto) , Eosinophils (%) (Auto) , Basophils (%) (Auto) , Differential Total Cells Counted 100, Neutrophils % ( Manual) 91H, Lymphocytes % (Manual) 4L, Monocytes % (Manual) 5, Eosinophils % ( Manual) 0, Basophils % (Manual) 0, Band Neutrophils 0, Platelet Estimate Adequate, Platelet Morphology Normal, Hypochromasia 2+, Anisocytosis 1+, Sodium Level 139, Potassium Level 3.6, Chloride Level 101, Carbon Dioxide Level 26, Anion Gap 12, Blood Urea Nitrogen 12, Creatinine 1.2, Estimat Glomerular Filtration Rate , Glucose Level 202H, Calcium Level 8.8, Total Bilirubin 0.5, Aspartate Amino Transf (AST/SGOT) 26, Alanine Aminotransferase (ALT/SGPT) 33, Alkaline Phosphatase 423H, Total Protein 8.2, Albumin 3.1L, Globulin 5.1, Albumin/Globulin Ratio 0.6L 02/26/18 07:20: White Blood Count 11.0H, Red Blood Count 3.65L, Hemoglobin 10.2L, Hematocrit 31.8L, Mean Corpuscular Volume 87, Mean Corpuscular Hemoglobin 27.8, Mean Corpuscular Hemoglobin Concent 31.9L, Red Cell Distribution Width 15.8H, Platelet Count 427, Mean Platelet Volume 7.2, Neutrophils (%) (Auto) 62.3, Lymphocytes (%) (Auto) 26.1, Monocytes (%) (Auto) 8.6, Eosinophils (%) (Auto) 2.6, Basophils (%) (Auto) 0.4, Sodium Level 137, Potassium Level 4.5, Chloride Level 104, Carbon Dioxide Level 29, Anion Gap 4L, Blood Urea Nitrogen 14, Creatinine 1.3, Estimat Glomerular Filtration Rate , Glucose Level 73#L, Calcium Level 8.6, Total Bilirubin 0.5, Aspartate Amino Transf (AST/SGOT) 44H, Alanine Aminotransferase (ALT/SGPT) 31, Alkaline Phosphatase 454H, Total Protein 8.3H, Albumin 2.9L, Globulin 5.4, Albumin/Globulin Ratio 0.5L Current Medications Medications (Trade) Dose Ordered Sig/Carlo Route PRN Reason Start Time Stop Time Status Last Admin Dose Admin Acetaminophen (Tylenol) 500 mg Q4H PRN ORAL Mild Pain/Temp > 100.5 02/23/18 02:00 03/25/18 01:59 02/25/18 22:08 Albuterol/ Ipratropium (Albuterol/ Ipratropium) 3 ml Q4H PRN HHN Shortness of Breath 02/23/18 10:30 02/28/18 10:29 02/23/18 11:00 Clonidine HCl (Catapres Tab) 0.1 mg Q2H PRN ORAL For High Blood Pressure 02/23/18 09:45 03/25/18 09:44 02/23/18 10:22 Dextrose (Dextrose 50%) 25 ml STAT PRN IV Hypoglycemia 02/23/18 02:00 03/25/18 01:59 Dextrose (Dextrose 50%) 50 ml STAT PRN IV Hypoglycemia 02/23/18 02:00 03/25/18 01:59 Docusate Sodium (Colace) 100 mg TWICE A DAY ORAL 02/26/18 09:00 03/28/18 08:59 02/26/18 08:48 Furosemide (Lasix) 40 mg DAILY IV 02/24/18 09:00 03/26/18 08:59 02/26/18 08:48 Insulin Aspart (NovoLOG) BEFORE MEALS AND HS SUBQ 02/23/18 06:30 03/25/18 06:29 02/26/18 05:42 Iopamidol (Isovue-370 150ml) 150 ml NOW PRN INJ Radiology Procedure 02/24/18 17:15 02/26/18 17:10 Iron Sucrose 100 mg/Sodium Chloride 60 ml @ 240 mls/hr BEDTIME IV 02/26/18 21:00 03/02/18 21:14 Metoclopramide HCl (Reglan) 5 mg Q8H PRN IVP Nausea & Vomiting 02/25/18 17:15 03/27/18 17:14 Ondansetron HCl (Zofran) 4 mg Q6H PRN IVP Nausea & Vomiting 02/25/18 08:00 03/27/18 07:59 02/25/18 08:28 Polyethylene Glycol (Miralax) 17 gm BEDTIME ORAL 02/26/18 21:00 03/28/18 20:59 Rivaroxaban (Xarelto) 10 mg DAILY ORAL 02/24/18 09:00 03/26/18 08:59 02/26/18 08:49 Sodium 1,000 ml @ 75 mls/hr [id number] IV 02/25/18 17:00 03/27/18 16:59 02/26/18 05:41 Vinicius Miranda MD Feb 26, 2018 09:51
[2018-02-26 12:00] VITALS: BP 148/61
--- NOTE | 2018-02-26 12:47 | General Progress Note ---
Assessment/Plan Status: stable Assessment/Plan #. Anemia of chronic disease --> anemia workup has been reviewed, will trend daily --> 02/25 Hgb at 10.0 --> Hgb goal >7 --> consider iron if ferritin less than 50 #. Coagulopathy is likely related to xarelto use --> continue per cards, is mild #. Anticoagulant use. The patient is on Xarelto for atrial fibrillation. #. Shortness of breath and elevated BNP, potentially concerning for congestive heart failure. --> sob improving, no wheezing #. Elevated D-dimer. Recommendations by Dr. Miranda. --> Consider further imaging as per his recs #. Possible gastroesophageal reflux disease. #. Hyperlipidemia. LDL goal less than 70. Subjective Date patient seen: Feb 26, 2018 Hematologic/Lymphatic: Reports: anemia Allergies: Coded Allergies: No Known Allergies (Unverified , 02/22/18) All Systems: reviewed and negative except above Subjective CT with mod R and small L effusion, no PE, Atx @ R basel. Elevated temp overnight, currently stable. Objective Last 24 Hour Vital Signs Date Time Temp Pulse Resp B/P (MAP) Pulse Ox O2 Delivery O2 Flow Rate FiO2 02/26/18 09:00 Venturi Mask 02/26/18 08:00 97.6 62 19 136/59 (84) 95 97.6 02/26/18 07:21 93 Venturi Mask 10.0 45 02/26/18 07:21 69 20 Venturi Mask 10.0 45 02/26/18 07:21 Venturi Mask 10.0 45 02/26/18 04:00 98.9 84 19 153/55 (87) 93 98.9 02/26/18 04:00 60 02/26/18 00:00 64 02/26/18 00:00 98.3 60 18 156/55 (88) 93 98.3 02/25/18 23:07 98.4 02/25/18 22:08 100.0 02/25/18 21:00 Venturi Mask 02/25/18 20:00 100.0 66 20 150/66 (94) 95 100.0 02/25/18 20:00 60 02/25/18 19:53 Venturi Mask 10.0 45 02/25/18 19:52 64 20 Venturi Mask 10.0 45 02/25/18 19:52 93 Venturi Mask 10.0 45 02/25/18 16:02 97.2 75 20 150/56 (87) 92 97.2 02/25/18 16:00 73 Intake and Output 02/25/18 02/26/18 19:00 07:00 Intake Total 540 ml 1088.75 ml Balance 540 ml 1088.75 ml Intake Oral 465 ml 240 ml IV Total 75 ml 848.75 ml # Voids 5 2 # Bowel Movements 1 Laboratory Tests 02/26/18 07:20: White Blood Count 11.0H, Red Blood Count 3.65L, Hemoglobin 10.2L, Hematocrit 31.8L, Mean Corpuscular Volume 87, Mean Corpuscular Hemoglobin 27.8, Mean Corpuscular Hemoglobin Concent 31.9L, Red Cell Distribution Width 15.8H, Platelet Count 427, Mean Platelet Volume 7.2, Neutrophils (%) (Auto) 62.3, Lymphocytes (%) (Auto) 26.1, Monocytes (%) (Auto) 8.6, Eosinophils (%) (Auto) 2.6, Basophils (%) (Auto) 0.4, Sodium Level 137, Potassium Level 4.5, Chloride Level 104, Carbon Dioxide Level 29, Anion Gap 4L, Blood Urea Nitrogen 14, Creatinine 1.3, Estimat Glomerular Filtration Rate , Glucose Level 73#L, Calcium Level 8.6, Total Bilirubin 0.5, Aspartate Amino Transf (AST/SGOT) 44H, Alanine Aminotransferase (ALT/SGPT) 31, Alkaline Phosphatase 454H, Total Protein 8.3H, Albumin 2.9L, Globulin 5.4, Albumin/Globulin Ratio 0.5L Height (Feet): 4 Height (Inches): 11.00 Weight (Pounds): 137 General Appearance: no apparent distress EENT: PERRL/EOMI Neck: normal alignment Cardiovascular: normal peripheral pulses Respiratory/Chest: no respiratory distress Abdomen: no mass Noel Langston MD Feb 26, 2018 12:47
--- NOTE | 2018-02-26 13:06 | Diagnostic Imaging Report ---
EXAM: US Abdomen Complete CLINICAL HISTORY: Abdominal pain. Increased ALP. Elevated glucose. History of hypertension and diabetes. TECHNIQUE: Real-time ultrasound of the abdomen (complete) with image documentation. COMPARISON: No relevant prior studies available. FINDINGS: Liver: Liver diameter of 16.5 cm. No intrahepatic bile duct dilation. Gallbladder: Layering echogenic stones in the gallbladder. No gallbladder wall thickening or pericholecystic fluid. The value analyst recorded a negative Soares's sign. Common bile duct: Common bile duct diameter 3.4 mm. No visible stones. No dilation. Pancreas: Unremarkable as visualized. Pancreatic body and tail are obscured by bowel gas. Kidneys: Punctate calcification in the left kidney, possibly nonobstructive stone. Right kidney measures 10.1 x 4.1 x 6.1 cm. Left kidney measures 10.5 x 5.3 x 3.9 cm. Spleen: Spleen measures 8.2 cm in maximum diameter, within normal limits. Aorta: Unremarkable. No aneurysm. Inferior vena cava: Unremarkable. Pleural space: Small right pleural effusion. IMPRESSION: 1. Cholelithiasis without gallbladder wall thickening or ductal dilatation. Negative sonographic Soares sign. 2. Punctate calcification in the left kidney, possibly nonobstructive stone. No hydronephrosis. 3. Small right pleural effusion.
--- NOTE | 2018-02-26 15:13 | Cardiac Electrophysiology PN ---
Assessment/Plan Assessment/Plan 1. Status post permanent pacemaker implantation. The patient's EKG showed the patient is atrially paced at rate of 60 with nonspecific T-wave abnormality. Awaiting brand of the pacemaker for interrogation. 2. Shortness of breath and elevated BNP likely secondary to congestive heart failure. EF 55%. On Lasix 40 mg IV daily. 3. History of paroxysmal atrial fibrillation, on a Xarelto, currently in sinus rhythm. 4. Elevated D-dimer. Had V/Q scan that was intermediate probability. Chest CT no PE or dissection. Follow up Dr. Miranda's 5. Vomiting. KUB is negative. FU Dr Hurtado 6. Right pleural effusion. Thoracentesis Wednesday DW RN Subjective Subjective Eating better. No CP or SOB in SR. Right thoracentesis pending Objective Last 24 Hour Vital Signs Date Time Temp Pulse Resp B/P (MAP) Pulse Ox O2 Delivery O2 Flow Rate FiO2 02/26/18 12:00 64 02/26/18 09:00 Venturi Mask 02/26/18 08:00 65 02/26/18 08:00 97.6 62 19 136/59 (84) 95 97.6 02/26/18 07:21 93 Venturi Mask 10.0 45 02/26/18 07:21 69 20 Venturi Mask 10.0 45 02/26/18 07:21 Venturi Mask 10.0 45 02/26/18 04:00 98.9 84 19 153/55 (87) 93 98.9 02/26/18 04:00 60 02/26/18 00:00 64 02/26/18 00:00 98.3 60 18 156/55 (88) 93 98.3 02/25/18 23:07 98.4 02/25/18 22:08 100.0 02/25/18 21:00 Venturi Mask 02/25/18 20:00 100.0 66 20 150/66 (94) 95 100.0 02/25/18 20:00 60 02/25/18 19:53 Venturi Mask 10.0 45 02/25/18 19:52 64 20 Venturi Mask 10.0 45 02/25/18 19:52 93 Venturi Mask 10.0 45 02/25/18 16:02 97.2 75 20 150/56 (87) 92 97.2 02/25/18 16:00 73 Intake and Output 02/25/18 02/26/18 19:00 07:00 Intake Total 540 ml 1088.75 ml Balance 540 ml 1088.75 ml Intake Oral 465 ml 240 ml IV Total 75 ml 848.75 ml # Voids 5 2 # Bowel Movements 1 Laboratory Tests Test 02/26/18 07:20 02/26/18 12:30 White Blood Count 11.0 K/UL (4.8-10.8) H Red Blood Count 3.65 M/UL (4.20-5.40) L Hemoglobin 10.2 G/DL (12.0-16.0) L Hematocrit 31.8 % (37.0-47.0) L Mean Corpuscular Volume 87 FL (80-99) Mean Corpuscular Hemoglobin 27.8 PG (27.0-31.0) Mean Corpuscular Hemoglobin Concent 31.9 G/DL (32.0-36.0) L Red Cell Distribution Width 15.8 % (11.6-14.8) H Platelet Count 427 K/UL (150-450) Mean Platelet Volume 7.2 FL (6.5-10.1) Neutrophils (%) (Auto) 62.3 % (45.0-75.0) Lymphocytes (%) (Auto) 26.1 % (20.0-45.0) Monocytes (%) (Auto) 8.6 % (1.0-10.0) Eosinophils (%) (Auto) 2.6 % (0.0-3.0) Basophils (%) (Auto) 0.4 % (0.0-2.0) Sodium Level 137 MMOL/L (136-145) Potassium Level 4.5 MMOL/L (3.5-5.1) Chloride Level 104 MMOL/L (98-107) Carbon Dioxide Level 29 MMOL/L (21-32) Anion Gap 4 mmol/L (5-15) L Blood Urea Nitrogen 14 mg/dL (7-18) Creatinine 1.3 MG/DL (0.55-1.30) Estimat Glomerular Filtration Rate mL/min (>60) Glucose Level 73 MG/DL (74-106) #L Calcium Level 8.6 MG/DL (8.5-10.1) Total Bilirubin 0.5 MG/DL (0.2-1.0) Aspartate Amino Transf (AST/SGOT) 44 U/L (15-37) H Alanine Aminotransferase (ALT/SGPT) 31 U/L (12-78) Alkaline Phosphatase 454 U/L (46-116) H Total Protein 8.3 G/DL (6.4-8.2) H Albumin 2.9 G/DL (3.4-5.0) L Globulin 5.4 g/dL Albumin/Globulin Ratio 0.5 (1.0-2.7) L Stool Occult Blood Pending Objective HEAD AND NECK: No JVD LUNGS: Clear. CARDIOVASCULAR: Regular S1 and S2. Pacemaker in left subclavian. ABDOMEN: Soft. EXTREMITIES: No pitting edema. Parviz Reid MD Feb 26, 2018 15:12
--- NOTE | 2018-02-26 15:57 | General Progress Note ---
Assessment/Plan Problem List: (1) Shortness of breath ICD Codes: R06.02 - Shortness of breath SNOMED: 516281304 (2) Acute exacerbation of CHF (congestive heart failure) ICD Codes: I50.9 - Heart failure, unspecified SNOMED: 18053900 Status: progressing Assessment/Plan sob improving no vomitting reviewed chart and labs chf exacerbation improving Subjective Gastrointestinal/Abdominal: Reports: nausea Allergies: Coded Allergies: No Known Allergies (Unverified , 02/22/18) Objective Last 24 Hour Vital Signs Date Time Temp Pulse Resp B/P (MAP) Pulse Ox O2 Delivery O2 Flow Rate FiO2 02/26/18 12:00 64 02/26/18 09:00 Venturi Mask 02/26/18 08:00 65 02/26/18 08:00 97.6 62 19 136/59 (84) 95 97.6 02/26/18 07:21 93 Venturi Mask 10.0 45 02/26/18 07:21 69 20 Venturi Mask 10.0 45 02/26/18 07:21 Venturi Mask 10.0 45 02/26/18 04:00 98.9 84 19 153/55 (87) 93 98.9 02/26/18 04:00 60 02/26/18 00:00 64 02/26/18 00:00 98.3 60 18 156/55 (88) 93 98.3 02/25/18 23:07 98.4 02/25/18 22:08 100.0 02/25/18 21:00 Venturi Mask 02/25/18 20:00 100.0 66 20 150/66 (94) 95 100.0 02/25/18 20:00 60 02/25/18 19:53 Venturi Mask 10.0 45 02/25/18 19:52 64 20 Venturi Mask 10.0 45 02/25/18 19:52 93 Venturi Mask 10.0 45 02/25/18 16:02 97.2 75 20 150/56 (87) 92 97.2 02/25/18 16:00 73 Intake and Output 02/25/18 02/26/18 19:00 07:00 Intake Total 540 ml 1088.75 ml Balance 540 ml 1088.75 ml Intake Oral 465 ml 240 ml IV Total 75 ml 848.75 ml # Voids 5 2 # Bowel Movements 1 Laboratory Tests 02/26/18 07:20: White Blood Count 11.0H, Red Blood Count 3.65L, Hemoglobin 10.2L, Hematocrit 31.8L, Mean Corpuscular Volume 87, Mean Corpuscular Hemoglobin 27.8, Mean Corpuscular Hemoglobin Concent 31.9L, Red Cell Distribution Width 15.8H, Platelet Count 427, Mean Platelet Volume 7.2, Neutrophils (%) (Auto) 62.3, Lymphocytes (%) (Auto) 26.1, Monocytes (%) (Auto) 8.6, Eosinophils (%) (Auto) 2.6, Basophils (%) (Auto) 0.4, Sodium Level 137, Potassium Level 4.5, Chloride Level 104, Carbon Dioxide Level 29, Anion Gap 4L, Blood Urea Nitrogen 14, Creatinine 1.3, Estimat Glomerular Filtration Rate , Glucose Level 73#L, Calcium Level 8.6, Total Bilirubin 0.5, Aspartate Amino Transf (AST/SGOT) 44H, Alanine Aminotransferase (ALT/SGPT) 31, Alkaline Phosphatase 454H, Total Protein 8.3H, Albumin 2.9L, Globulin 5.4, Albumin/Globulin Ratio 0.5L 02/26/18 12:30: Stool Occult Blood [Pending] Height (Feet): 4 Height (Inches): 11.00 Weight (Pounds): 137 Neck: supple Respiratory/Chest: lungs clear Abdomen: non tender Johnna Ruiz MD Feb 26, 2018 15:57
[2018-02-26 16:00] VITALS: BP 107/63
[2018-02-26] MEDS: Acetaminophen 500mg (ES) tab ORAL PRN (17:09)
[2018-02-26 17:29] LABS: INR 1.2 (0.9-1.1)
[2018-02-26 20:00] VITALS: BP 156/60
[2018-02-26] MEDS: Iron Sucrose 100 MG in NS 55 ML IV SCH (21:07)
[2018-02-26] MEDS: Miralax 17gm pkt ORAL SCH (21:12)
--- NOTE | 2018-02-26 23:02 | General Progress Note ---
Assessment/Plan Assessment/Plan MDD anxiety Dementia lacks capacity to make decision The daughter is a decision maker -Zoloft -donepezil -seroquel prn Subjective Date patient seen: Feb 26, 2018 Neurologic/Psychiatric: Reports: anxiety, depressed Allergies: Coded Allergies: No Known Allergies (Unverified , 02/22/18) Subjective the pt lacks capacity to make decisions. Objective Last 24 Hour Vital Signs Date Time Temp Pulse Resp B/P (MAP) Pulse Ox O2 Delivery O2 Flow Rate FiO2 02/26/18 20:21 Venturi Mask 10.0 45 02/26/18 20:20 93 Venturi Mask 10.0 45 02/26/18 20:00 97.0 102 20 156/60 (92) 90 97.0 02/26/18 18:08 99.1 02/26/18 17:09 100.6 02/26/18 16:00 68 02/26/18 16:00 100.6 87 21 107/63 (78) 97 100.6 02/26/18 12:00 64 02/26/18 12:00 97.7 67 23 148/61 (90) 95 97.7 02/26/18 09:00 Venturi Mask 02/26/18 08:00 65 02/26/18 08:00 97.6 62 19 136/59 (84) 95 97.6 02/26/18 07:21 93 Venturi Mask 10.0 45 02/26/18 07:21 69 20 Venturi Mask 10.0 45 02/26/18 07:21 Venturi Mask 10.0 45 02/26/18 04:00 98.9 84 19 153/55 (87) 93 98.9 02/26/18 04:00 60 02/26/18 00:00 64 02/26/18 00:00 98.3 60 18 156/55 (88) 93 98.3 Intake and Output 02/25/18 02/26/18 19:00 07:00 Intake Total 540 ml 1088.75 ml Balance 540 ml 1088.75 ml Intake Oral 465 ml 240 ml IV Total 75 ml 848.75 ml # Voids 5 2 # Bowel Movements 1 Laboratory Tests 02/26/18 07:20: White Blood Count 11.0H, Red Blood Count 3.65L, Hemoglobin 10.2L, Hematocrit 31.8L, Mean Corpuscular Volume 87, Mean Corpuscular Hemoglobin 27.8, Mean Corpuscular Hemoglobin Concent 31.9L, Red Cell Distribution Width 15.8H, Platelet Count 427, Mean Platelet Volume 7.2, Neutrophils (%) (Auto) 62.3, Lymphocytes (%) (Auto) 26.1, Monocytes (%) (Auto) 8.6, Eosinophils (%) (Auto) 2.6, Basophils (%) (Auto) 0.4, Sodium Level 137, Potassium Level 4.5, Chloride Level 104, Carbon Dioxide Level 29, Anion Gap 4L, Blood Urea Nitrogen 14, Creatinine 1.3, Estimat Glomerular Filtration Rate , Glucose Level 73#L, Calcium Level 8.6, Total Bilirubin 0.5, Aspartate Amino Transf (AST/SGOT) 44H, Alanine Aminotransferase (ALT/SGPT) 31, Alkaline Phosphatase 454H, Total Protein 8.3H, Albumin 2.9L, Globulin 5.4, Albumin/Globulin Ratio 0.5L 02/26/18 12:30: Stool Occult Blood [Pending] 02/26/18 16:10: Prothrombin Time 12.9H, Prothromb Time International Ratio 1.2H Height (Feet): 4 Height (Inches): 11.00 Weight (Pounds): 137 Orlin Abdullahi MD Feb 26, 2018 23:02
[2018-02-27] VITALS: BP 158/58
[2018-02-27 04:00] VITALS: BP 140/63
[2018-02-27] MEDS: NovoLOG Insulin Flexpen SUBQ SCH ×4 (06:09→21:52)
--- NOTE | 2018-02-27 07:04 | General Progress Note ---
Assessment/Plan Problem List: (1) DM (diabetes mellitus) ICD Codes: E11.9 - Type 2 diabetes mellitus without complications SNOMED: 79920919 (2) A-fib ICD Codes: I48.91 - Unspecified atrial fibrillation SNOMED: 44745877 (3) Pacemaker ICD Codes: Z95.0 - Presence of cardiac pacemaker SNOMED: 038748994 (4) Pleural effusion ICD Codes: J90 - Pleural effusion, not elsewhere classified SNOMED: 35838013 (5) Elevated alkaline phosphatase measurement ICD Codes: R74.8 - Abnormal levels of other serum enzymes SNOMED: 887418287 (6) Shortness of breath ICD Codes: R06.02 - Shortness of breath SNOMED: 513175864 (7) Iron deficiency ICD Codes: E61.1 - Iron deficiency SNOMED: 36995205 (8) Anemia ICD Codes: D64.9 - Anemia, unspecified SNOMED: 354061453 (9) Vomiting ICD Codes: R11.10 - Vomiting, unspecified SNOMED: 195765531 (10) Gastroparesis due to DM ICD Codes: 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 will hold xeralto and plan for tomorrow Subjective ROS Limited/Unobtainable: Yes Allergies: Coded Allergies: No Known Allergies (Unverified , 02/22/18) Subjective no c/o Objective Last 24 Hour Vital Signs Date Time Temp Pulse Resp B/P (MAP) Pulse Ox O2 Delivery O2 Flow Rate FiO2 02/27/18 04:00 60 02/27/18 04:00 97.7 60 18 140/63 (88) 95 97.7 02/27/18 00:00 68 02/27/18 00:00 99.1 66 20 158/58 (91) 96 99.1 02/26/18 21:00 Venturi Mask 02/26/18 20:21 Venturi Mask 10.0 45 02/26/18 20:20 93 Venturi Mask 10.0 45 02/26/18 20:00 97.0 102 20 156/60 (92) 90 97.0 02/26/18 20:00 61 02/26/18 18:08 99.1 02/26/18 17:09 100.6 02/26/18 16:00 68 02/26/18 16:00 100.6 87 21 107/63 (78) 97 100.6 02/26/18 12:00 64 02/26/18 12:00 97.7 67 23 148/61 (90) 95 97.7 02/26/18 09:00 Venturi Mask 02/26/18 08:00 65 02/26/18 08:00 97.6 62 19 136/59 (84) 95 97.6 02/26/18 07:21 93 Venturi Mask 10.0 45 02/26/18 07:21 69 20 Venturi Mask 10.0 45 02/26/18 07:21 Venturi Mask 10.0 45 Intake and Output 02/26/18 02/27/18 19:00 07:00 Intake Total 360 ml Balance 360 ml Intake Oral 360 ml # Voids 3 2 # Bowel Movements 1 1 Laboratory Tests 02/26/18 07:20: White Blood Count 11.0H, Red Blood Count 3.65L, Hemoglobin 10.2L, Hematocrit 31.8L, Mean Corpuscular Volume 87, Mean Corpuscular Hemoglobin 27.8, Mean Corpuscular Hemoglobin Concent 31.9L, Red Cell Distribution Width 15.8H, Platelet Count 427, Mean Platelet Volume 7.2, Neutrophils (%) (Auto) 62.3, Lymphocytes (%) (Auto) 26.1, Monocytes (%) (Auto) 8.6, Eosinophils (%) (Auto) 2.6, Basophils (%) (Auto) 0.4, Sodium Level 137, Potassium Level 4.5, Chloride Level 104, Carbon Dioxide Level 29, Anion Gap 4L, Blood Urea Nitrogen 14, Creatinine 1.3, Estimat Glomerular Filtration Rate , Glucose Level 73#L, Calcium Level 8.6, Total Bilirubin 0.5, Aspartate Amino Transf (AST/SGOT) 44H, Alanine Aminotransferase (ALT/SGPT) 31, Alkaline Phosphatase 454H, Total Protein 8.3H, Albumin 2.9L, Globulin 5.4, Albumin/Globulin Ratio 0.5L 02/26/18 12:30: Stool Occult Blood [Pending] 02/26/18 16:10: Prothrombin Time 12.9H, Prothromb Time International Ratio 1.2H Height (Feet): 4 Height (Inches): 11.00 Weight (Pounds): 137 General Appearance: no apparent distress EENT: normal ENT inspection Neck: supple Cardiovascular: normal rate Respiratory/Chest: decreased breath sounds Abdomen: normal bowel sounds, non tender, soft Extremities: non-tender Claudio Hurtado MD Feb 27, 2018 07:04
[2018-02-27 08:00] VITALS: BP 162/51
[2018-02-27 08:10] LABS: BASOPHILS % (AUTO) 0.5 % (0.0-2.0); EOSINOPHILS % (AUTO) 1.9 % (0.0-3.0); HEMATOCRIT 29.8 % (37.0-47.0); HEMOGLOBIN 9.7 G/DL (12.0-16.0); LYMPHOCYTES % (AUTO) 21.9 % (20.0-45.0); MEAN CORPUSCULAR VOLUME 87 FL (80-99); MONOCYTES % (AUTO) 8.5 % (1.0-10.0); NEUTROPHILS % (AUTO) 67.3 % (45.0-75.0); PLATELET COUNT 411 K/UL (150-450); RED BLOOD COUNT 3.44 M/UL (4.20-5.40); RED CELL DISTRIBUTION WIDTH 15.8 % (11.6-14.8); WHITE BLOOD COUNT 8.8 K/UL (4.8-10.8)
[2018-02-27 08:28] LABS: ALANINE AMINOTRANSFERASE 33 U/L (12-78); ALBUMIN 2.9 G/DL (3.4-5.0); ALBUMIN/GLOBULIN RATIO 0.6 (1.0-2.7); ALKALINE PHOSPHATASE 374 U/L (46-116); ANION GAP 10 mmol/L (5-15); ASPARTATE AMINO TRANSFERASE 25 U/L (15-37); BILIRUBIN,TOTAL 0.4 MG/DL (0.2-1.0); BLOOD UREA NITROGEN 15 mg/dL (7-18); CALCIUM 8.5 MG/DL (8.5-10.1); CARBON DIOXIDE 28 MMOL/L (21-32); CHLORIDE 101 MMOL/L (98-107); CREATININE 1.3 MG/DL (0.55-1.30); POTASSIUM 3.6 MMOL/L (3.5-5.1); SODIUM 139 MMOL/L (136-145)
[2018-02-27] MEDS: Docusate 100mg cap ORAL SCH ×2 (08:42→17:42)
--- NOTE | 2018-02-27 10:40 | Pulmonology Progress Note ---
Assessment/Plan Problems: (1) Shortness of breath (2) Acute exacerbation of CHF (congestive heart failure) Assessment/Plan ASSESSMENT: The patient is an 82-year-old female with a history of CHF, hypertension, hyperlipidemia, atrial fibrillation, possible dementia, admitted with shortness of breath likely secondary to decompensated heart failure. PROBLEM LIST: 1. Acute hypoxemic respiratory failure. 2. CHF with acute decompensated heart failure. 3. Hypertension. 4. Hyperlipidemia. 5. Diabetes. 6. Atrial fibrillation on anticoagulation. 7. Possible GERD. 8. Moderate R and small L pleural effusion 9. Atelectasis TREATMENT PLAN: 1. Optimize pulmonary hygiene/mobilize as tolerated. 2. Titrate down FiO2 to keep saturations greater than 90%. 3. P.r.n. bronchodilators. 4. Monitor volumes and renal function, diuresis as tolerated. 5. Monitor off antibiotics for signs of respiratory precautions. 6. Thoracentesis evaluation 7. Aspiration precautions. 8. F/U GI recs, IV IRON, F/u US, endoscopy 9. DVT prophylaxis. Xarelto held for procedures, start SCD's Subjective Allergies: Coded Allergies: No Known Allergies (Unverified , 02/22/18) Subjective O2 needs unchanged, Tm 99.1, VSS No cough, no SOB, no F/C Objective Last 24 Hour Vital Signs Date Time Temp Pulse Resp B/P (MAP) Pulse Ox O2 Delivery O2 Flow Rate FiO2 02/27/18 08:00 97.5 68 18 162/51 (88) 91 97.5 02/27/18 07:07 67 20 Venturi Mask 10.0 45 02/27/18 07:07 92 Venturi Mask 10.0 45 02/27/18 07:07 Venturi Mask 10.0 45 02/27/18 04:00 60 02/27/18 04:00 97.7 60 18 140/63 (88) 95 97.7 02/27/18 00:00 68 02/27/18 00:00 99.1 66 20 158/58 (91) 96 99.1 02/26/18 21:00 Venturi Mask 02/26/18 20:21 Venturi Mask 10.0 45 02/26/18 20:20 93 Venturi Mask 10.0 45 02/26/18 20:00 97.0 102 20 156/60 (92) 90 97.0 02/26/18 20:00 61 02/26/18 18:08 99.1 02/26/18 17:09 100.6 02/26/18 16:00 68 02/26/18 16:00 100.6 87 21 107/63 (78) 97 100.6 02/26/18 12:00 64 02/26/18 12:00 97.7 67 23 148/61 (90) 95 97.7 Intake and Output 02/26/18 02/27/18 19:00 07:00 Intake Total 360 ml Balance 360 ml Intake Oral 360 ml # Voids 3 2 # Bowel Movements 1 1 General Appearance: no acute distress, cachetic HEENT: normocephalic, atraumatic, anicteric, mucous membranes moist Respiratory/Chest: chest wall non-tender, lungs clear, normal breath sounds, no respiratory distress, no accessory muscle use Cardiovascular: normal peripheral pulses, normal rate, regular rhythm Abdomen: normal bowel sounds, soft, non tender, no organomegaly, non distended , no mass Extremities: no cyanosis, no clubbing, no edema Laboratory Tests 02/26/18 12:30: Stool Occult Blood [Pending] 02/26/18 16:10: Prothrombin Time 12.9H, Prothromb Time International Ratio 1.2H 02/27/18 07:35: White Blood Count 8.8, Red Blood Count 3.44L, Hemoglobin 9.7L, Hematocrit 29.8L , Mean Corpuscular Volume 87, Mean Corpuscular Hemoglobin 28.3, Mean Corpuscular Hemoglobin Concent 32.6, Red Cell Distribution Width 15.8H, Platelet Count 411, Mean Platelet Volume 7.4, Neutrophils (%) (Auto) 67.3, Lymphocytes (%) (Auto) 21.9, Monocytes (%) (Auto) 8.5, Eosinophils (%) (Auto) 1.9, Basophils (%) (Auto) 0.5, Sodium Level 139, Potassium Level 3.6, Chloride Level 101, Carbon Dioxide Level 28, Anion Gap 10, Blood Urea Nitrogen 15, Creatinine 1.3, Estimat Glomerular Filtration Rate , Glucose Level 112H, Calcium Level 8.5, Total Bilirubin 0.4, Aspartate Amino Transf (AST/SGOT) 25, Alanine Aminotransferase (ALT/SGPT) 33, Alkaline Phosphatase 374H, Total Protein 7.9, Albumin 2.9L, Globulin 5.0, Albumin/Globulin Ratio 0.6L, Carcinoembryonic Antigen [Pending], CA 19-9 Antigen [Pending] Current Medications Medications (Trade) Dose Ordered Sig/Carlo Route PRN Reason Start Time Stop Time Status Last Admin Dose Admin Acetaminophen (Tylenol) 500 mg Q4H PRN ORAL Mild Pain/Temp > 100.5 02/23/18 02:00 03/25/18 01:59 02/26/18 17:09 Albuterol/ Ipratropium (Albuterol/ Ipratropium) 3 ml Q4H PRN HHN Shortness of Breath 02/23/18 10:30 02/28/18 10:29 02/23/18 11:00 Bisacodyl (Dulcolax) 10 mg ONCE ORAL 02/27/18 16:00 02/27/18 17:00 Clonidine HCl (Catapres Tab) 0.1 mg Q2H PRN ORAL For High Blood Pressure 02/23/18 09:45 03/25/18 09:44 02/23/18 10:22 Dextrose (Dextrose 50%) 25 ml STAT PRN IV Hypoglycemia 02/23/18 02:00 03/25/18 01:59 Dextrose (Dextrose 50%) 50 ml STAT PRN IV Hypoglycemia 02/23/18 02:00 03/25/18 01:59 Docusate Sodium (Colace) 100 mg TWICE A DAY ORAL 02/26/18 09:00 03/28/18 08:59 02/26/18 17:09 Furosemide (Lasix) 40 mg DAILY IV 02/24/18 09:00 03/26/18 08:59 02/27/18 08:44 Insulin Aspart (NovoLOG) BEFORE MEALS AND HS SUBQ 02/23/18 06:30 03/25/18 06:29 02/27/18 06:09 Iron Sucrose 100 mg/Sodium Chloride 60 ml @ 240 mls/hr BEDTIME IV 02/26/18 21:00 03/02/18 21:14 02/26/18 21:07 Metoclopramide HCl (Reglan) 5 mg Q8H PRN IVP Nausea & Vomiting 02/25/18 17:15 03/27/18 17:14 Ondansetron HCl (Zofran) 4 mg Q6H PRN IVP Nausea & Vomiting 02/25/18 08:00 03/27/18 07:59 02/25/18 08:28 Polyethylene Glycol (Miralax) 17 gm BEDTIME ORAL 02/26/18 21:00 03/28/18 20:59 02/26/18 21:12 Polyethylene Glycol (Miralax) 238 gm ONCE ORAL 02/27/18 16:00 02/27/18 17:00 Vinicius Miranda MD Feb 27, 2018 10:40
--- NOTE | 2018-02-27 10:58 | General Progress Note ---
Assessment/Plan Status: stable Assessment/Plan #. Anemia of chronic disease --> anemia workup has been reviewed, will trend daily --> closely monitor for improvement --> Hgb goal >7 --> consider iron if ferritin less than 50 #. Coagulopathy is likely related to xarelto use --> continue per cards, is mild #. Anticoagulant use. The patient is on Xarelto for atrial fibrillation. #. Shortness of breath and elevated BNP, potentially concerning for congestive heart failure. --> sob improving, no wheezing #. Elevated D-dimer. Recommendations by Dr. Miranda. --> Consider further imaging as per his recs #. Possible gastroesophageal reflux disease. #. Hyperlipidemia. LDL goal less than 70. The time the note was entered does not necessarily correspond to the time the patient was seen. Subjective Date patient seen: Feb 27, 2018 Hematologic/Lymphatic: Reports: anemia Allergies: Coded Allergies: No Known Allergies (Unverified , 02/22/18) Subjective No acute events. No fever, no resp distress. Objective Last 24 Hour Vital Signs Date Time Temp Pulse Resp B/P (MAP) Pulse Ox O2 Delivery O2 Flow Rate FiO2 02/27/18 08:00 97.5 68 18 162/51 (88) 91 97.5 02/27/18 07:07 67 20 Venturi Mask 10.0 45 02/27/18 07:07 92 Venturi Mask 10.0 45 02/27/18 07:07 Venturi Mask 10.0 45 02/27/18 04:00 60 02/27/18 04:00 97.7 60 18 140/63 (88) 95 97.7 02/27/18 00:00 68 02/27/18 00:00 99.1 66 20 158/58 (91) 96 99.1 02/26/18 21:00 Venturi Mask 02/26/18 20:21 Venturi Mask 10.0 45 02/26/18 20:20 93 Venturi Mask 10.0 45 02/26/18 20:00 97.0 102 20 156/60 (92) 90 97.0 02/26/18 20:00 61 02/26/18 18:08 99.1 02/26/18 17:09 100.6 02/26/18 16:00 68 02/26/18 16:00 100.6 87 21 107/63 (78) 97 100.6 02/26/18 12:00 64 02/26/18 12:00 97.7 67 23 148/61 (90) 95 97.7 Intake and Output 02/26/18 02/27/18 19:00 07:00 Intake Total 360 ml Balance 360 ml Intake Oral 360 ml # Voids 3 2 # Bowel Movements 1 1 Laboratory Tests 02/26/18 12:30: Stool Occult Blood [Pending] 02/26/18 16:10: Prothrombin Time 12.9H, Prothromb Time International Ratio 1.2H 02/27/18 07:35: White Blood Count 8.8, Red Blood Count 3.44L, Hemoglobin 9.7L, Hematocrit 29.8L , Mean Corpuscular Volume 87, Mean Corpuscular Hemoglobin 28.3, Mean Corpuscular Hemoglobin Concent 32.6, Red Cell Distribution Width 15.8H, Platelet Count 411, Mean Platelet Volume 7.4, Neutrophils (%) (Auto) 67.3, Lymphocytes (%) (Auto) 21.9, Monocytes (%) (Auto) 8.5, Eosinophils (%) (Auto) 1.9, Basophils (%) (Auto) 0.5, Sodium Level 139, Potassium Level 3.6, Chloride Level 101, Carbon Dioxide Level 28, Anion Gap 10, Blood Urea Nitrogen 15, Creatinine 1.3, Estimat Glomerular Filtration Rate , Glucose Level 112H, Calcium Level 8.5, Total Bilirubin 0.4, Aspartate Amino Transf (AST/SGOT) 25, Alanine Aminotransferase (ALT/SGPT) 33, Alkaline Phosphatase 374H, Total Protein 7.9, Albumin 2.9L, Globulin 5.0, Albumin/Globulin Ratio 0.6L, Carcinoembryonic Antigen [Pending], CA 19-9 Antigen [Pending] Height (Feet): 4 Height (Inches): 11.00 Weight (Pounds): 132 General Appearance: no apparent distress, alert EENT: PERRL/EOMI Neck: normal alignment Cardiovascular: normal peripheral pulses Respiratory/Chest: no respiratory distress Abdomen: no mass Noel Langston MD Feb 27, 2018 10:58
[2018-02-27] MEDS ORDERED: Tubing IV Secondary IV ONE (11:44)
[2018-02-27] MEDS ORDERED: NS 275ml ONE (11:44)
[2018-02-27 12:00] VITALS: BP 133/65
--- NOTE | 2018-02-27 12:40 | General Progress Note ---
Assessment/Plan Problem List: (1) Shortness of breath ICD Codes: R06.02 - Shortness of breath SNOMED: 955021014 (2) Acute exacerbation of CHF (congestive heart failure) ICD Codes: I50.9 - Heart failure, unspecified SNOMED: 41684382 Status: progressing Assessment/Plan no dyspnea afebrile reveiwed chart chf exacerbation improving Subjective ROS Limited/Unobtainable: Yes Allergies: Coded Allergies: No Known Allergies (Unverified , 02/22/18) Objective Last 24 Hour Vital Signs Date Time Temp Pulse Resp B/P (MAP) Pulse Ox O2 Delivery O2 Flow Rate FiO2 02/27/18 08:00 66 02/27/18 08:00 97.5 68 18 162/51 (88) 91 97.5 02/27/18 07:07 67 20 Venturi Mask 10.0 45 02/27/18 07:07 92 Venturi Mask 10.0 45 02/27/18 07:07 Venturi Mask 10.0 45 02/27/18 04:00 60 02/27/18 04:00 97.7 60 18 140/63 (88) 95 97.7 02/27/18 00:00 68 02/27/18 00:00 99.1 66 20 158/58 (91) 96 99.1 02/26/18 21:00 Venturi Mask 02/26/18 20:21 Venturi Mask 10.0 45 02/26/18 20:20 93 Venturi Mask 10.0 45 02/26/18 20:00 97.0 102 20 156/60 (92) 90 97.0 02/26/18 20:00 61 02/26/18 18:08 99.1 02/26/18 17:09 100.6 02/26/18 16:00 68 02/26/18 16:00 100.6 87 21 107/63 (78) 97 100.6 Intake and Output 02/26/18 02/27/18 19:00 07:00 Intake Total 360 ml Balance 360 ml Intake Oral 360 ml # Voids 3 2 # Bowel Movements 1 1 Laboratory Tests 02/26/18 16:10: Prothrombin Time 12.9H, Prothromb Time International Ratio 1.2H 02/27/18 07:35: White Blood Count 8.8, Red Blood Count 3.44L, Hemoglobin 9.7L, Hematocrit 29.8L , Mean Corpuscular Volume 87, Mean Corpuscular Hemoglobin 28.3, Mean Corpuscular Hemoglobin Concent 32.6, Red Cell Distribution Width 15.8H, Platelet Count 411, Mean Platelet Volume 7.4, Neutrophils (%) (Auto) 67.3, Lymphocytes (%) (Auto) 21.9, Monocytes (%) (Auto) 8.5, Eosinophils (%) (Auto) 1.9, Basophils (%) (Auto) 0.5, Sodium Level 139, Potassium Level 3.6, Chloride Level 101, Carbon Dioxide Level 28, Anion Gap 10, Blood Urea Nitrogen 15, Creatinine 1.3, Estimat Glomerular Filtration Rate , Glucose Level 112H, Calcium Level 8.5, Total Bilirubin 0.4, Aspartate Amino Transf (AST/SGOT) 25, Alanine Aminotransferase (ALT/SGPT) 33, Alkaline Phosphatase 374H, Total Protein 7.9, Albumin 2.9L, Globulin 5.0, Albumin/Globulin Ratio 0.6L, Carcinoembryonic Antigen [Pending], CA 19-9 Antigen [Pending] Height (Feet): 4 Height (Inches): 11.00 Weight (Pounds): 132 Cardiovascular: normal rate Respiratory/Chest: lungs clear Abdomen: soft Johnna Ruiz MD Feb 27, 2018 12:40
--- NOTE | 2018-02-27 14:13 | Cardiac Electrophysiology PN ---
Assessment/Plan Assessment/Plan 1. Status post [employer] permanent pacemaker implantation. The patient' s EKG showed the patient is atrially paced at rate of 60 with nonspecific T-wave abnormality. Pacer interrogation showed Nl Fx 2. Shortness of breath and elevated BNP likely secondary to congestive heart failure. EF 55%. On Lasix 40 mg IV daily. 3. History of paroxysmal atrial fibrillation, on a Xarelto, currently in sinus rhythm. 4. Elevated D-dimer. Had V/Q scan that was intermediate probability. Chest CT no PE or dissection. Follow up Dr. Miranda's 5. Vomiting. KUB is negative.EGD by Dr stringer Wednesday 6. Right pleural effusion. Thoracentesis Wednesday DW RN Subjective Subjective No CP or SOB in SR. Right thoracentesis and EGD and colonoscopy pending Objective Last 24 Hour Vital Signs Date Time Temp Pulse Resp B/P (MAP) Pulse Ox O2 Delivery O2 Flow Rate FiO2 02/27/18 08:00 66 02/27/18 08:00 97.5 68 18 162/51 (88) 91 97.5 02/27/18 07:07 67 20 Venturi Mask 10.0 45 02/27/18 07:07 92 Venturi Mask 10.0 45 02/27/18 07:07 Venturi Mask 10.0 45 02/27/18 04:00 60 02/27/18 04:00 97.7 60 18 140/63 (88) 95 97.7 02/27/18 00:00 68 02/27/18 00:00 99.1 66 20 158/58 (91) 96 99.1 02/26/18 21:00 Venturi Mask 02/26/18 20:21 Venturi Mask 10.0 45 02/26/18 20:20 93 Venturi Mask 10.0 45 02/26/18 20:00 97.0 102 20 156/60 (92) 90 97.0 02/26/18 20:00 61 02/26/18 18:08 99.1 02/26/18 17:09 100.6 02/26/18 16:00 68 02/26/18 16:00 100.6 87 21 107/63 (78) 97 100.6 Intake and Output 02/26/18 02/27/18 19:00 07:00 Intake Total 360 ml Balance 360 ml Intake Oral 360 ml # Voids 3 2 # Bowel Movements 1 1 Laboratory Tests Test 02/26/18 16:10 02/27/18 07:35 Prothrombin Time 12.9 SEC (9.30-11.50) H Prothromb Time International Ratio 1.2 (0.9-1.1) H White Blood Count 8.8 K/UL (4.8-10.8) Red Blood Count 3.44 M/UL (4.20-5.40) L Hemoglobin 9.7 G/DL (12.0-16.0) L Hematocrit 29.8 % (37.0-47.0) L Mean Corpuscular Volume 87 FL (80-99) Mean Corpuscular Hemoglobin 28.3 PG (27.0-31.0) Mean Corpuscular Hemoglobin Concent 32.6 G/DL (32.0-36.0) Red Cell Distribution Width 15.8 % (11.6-14.8) H Platelet Count 411 K/UL (150-450) Mean Platelet Volume 7.4 FL (6.5-10.1) Neutrophils (%) (Auto) 67.3 % (45.0-75.0) Lymphocytes (%) (Auto) 21.9 % (20.0-45.0) Monocytes (%) (Auto) 8.5 % (1.0-10.0) Eosinophils (%) (Auto) 1.9 % (0.0-3.0) Basophils (%) (Auto) 0.5 % (0.0-2.0) Sodium Level 139 MMOL/L (136-145) Potassium Level 3.6 MMOL/L (3.5-5.1) Chloride Level 101 MMOL/L (98-107) Carbon Dioxide Level 28 MMOL/L (21-32) Anion Gap 10 mmol/L (5-15) Blood Urea Nitrogen 15 mg/dL (7-18) Creatinine 1.3 MG/DL (0.55-1.30) Estimat Glomerular Filtration Rate mL/min (>60) Glucose Level 112 MG/DL (74-106) H Calcium Level 8.5 MG/DL (8.5-10.1) Total Bilirubin 0.4 MG/DL (0.2-1.0) Aspartate Amino Transf (AST/SGOT) 25 U/L (15-37) Alanine Aminotransferase (ALT/SGPT) 33 U/L (12-78) Alkaline Phosphatase 374 U/L (46-116) H Total Protein 7.9 G/DL (6.4-8.2) Albumin 2.9 G/DL (3.4-5.0) L Globulin 5.0 g/dL Albumin/Globulin Ratio 0.6 (1.0-2.7) L Carcinoembryonic Antigen Pending CA 19-9 Antigen Pending Objective HEAD AND NECK: No JVD LUNGS: Clear. CARDIOVASCULAR: Regular S1 and S2. Pacemaker in left subclavian. ABDOMEN: Soft. EXTREMITIES: No pitting edema. Parviz Reid MD Feb 27, 2018 14:13
[2018-02-27 16:00] VITALS: BP 161/52
[2018-02-27] MEDS ORDERED: Bisacodyl EC 5mg tab ORAL SCH (16:00)
[2018-02-27] MEDS ORDERED: Polyethylene Glycol 238gm bottle ORAL SCH (16:00)
[2018-02-27 20:00] VITALS: BP 151/66
[2018-02-27] MEDS: Miralax 17gm pkt ORAL SCH (21:00)
[2018-02-27] MEDS: Iron Sucrose 100 MG in NS 55 ML IV SCH (21:39)
[2018-02-28] VITALS (12 sets, daily range): BP systolic 97–162; BP diastolic 56–84
[2018-02-28] MEDS: NovoLOG Insulin Flexpen SUBQ SCH ×4 (06:32→21:42)
[2018-02-28 07:41] LABS: BASOPHILS % (AUTO) 0.5 % (0.0-2.0); EOSINOPHILS % (AUTO) 2.7 % (0.0-3.0); HEMATOCRIT 29.5 % (37.0-47.0); HEMOGLOBIN 9.3 G/DL (12.0-16.0); LYMPHOCYTES % (AUTO) 21.7 % (20.0-45.0); MEAN CORPUSCULAR VOLUME 86 FL (80-99); MONOCYTES % (AUTO) 9.8 % (1.0-10.0); NEUTROPHILS % (AUTO) 65.3 % (45.0-75.0); PLATELET COUNT 378 K/UL (150-450); RED BLOOD COUNT 3.41 M/UL (4.20-5.40); RED CELL DISTRIBUTION WIDTH 15.7 % (11.6-14.8); WHITE BLOOD COUNT 7.5 K/UL (4.8-10.8)
[2018-02-28 08:15] LABS: ANION GAP 8 mmol/L (5-15); BLOOD UREA NITROGEN 10 mg/dL (7-18); CALCIUM 8.2 MG/DL (8.5-10.1); CARBON DIOXIDE 30 MMOL/L (21-32); CHLORIDE 102 MMOL/L (98-107); POTASSIUM 3.5 MMOL/L (3.5-5.1); SODIUM 139 MMOL/L (136-145)
--- NOTE | 2018-02-28 08:55 | Pre-Procedure Note/Attestation ---
Pre-Procedure Note/Attestation Complete Prior to Procedure Planned Procedure: not applicable Procedure Narrative: esophagogastroduodenoscopy and colonoscopy Indications for Procedure Pre-Operative Diagnosis: anemia Attestation I attest that I discussed the nature of the procedure; its benefits; risks and complications; and alternatives (and the risks and benefits of such alternatives ), prior to the procedure, with the patient (or the patient's legal electroplating sales representative). I attest that, if there was a reasonable possibility of needing a blood transfusion, the patient (or the patient's legal electroplating sales representative) was given the [facility] standardized written summary, pursuant to the Enrrique Melissa Blood Safety Act ([place] Health and Safety Code # 1645, as amended). I attest that I re-evaluated the patient just prior to the surgery and that there has been no change in the patient's H&P, except as documented below: Claudio Hurtado MD Feb 28, 2018 08:55
[2018-02-28] MEDS ORDERED: NS 500ML IVPB ONE (09:07)
[2018-02-28] MEDS ORDERED: Propofol 200mg/20ml IV ONE (09:14)
[2018-02-28] MEDS ORDERED: Lidocaine 1% MPF 10mg/ml 5ml ONE (09:14)
[2018-02-28] MEDS ORDERED: LR 1000ml ONE (09:14)
[2018-02-28] MEDS: LR 1000ml 1,000 ML IVLG SCH ×2 (09:17→11:30)
[2018-02-28] MEDS ORDERED: HYDROcodone/Acetamin 7.5/325 tab ORAL PRN (09:30)
[2018-02-28] MEDS ORDERED: Ketorolac 30mg Inj IV PRN ×2 (09:30)
[2018-02-28] MEDS ORDERED: DiphenhydrAMINE 50mg/ml Inj IVP PRN (09:30)
[2018-02-28] MEDS ORDERED: LORazepam Inj 2mg/ml 1ml IV PRN (09:30)
[2018-02-28] MEDS ORDERED: Atropine Inj 1mg/10ml Syr IV PRN (09:30)
[2018-02-28] MEDS ORDERED: Norco 5mg/325mg tab ORAL PRN (09:30)
[2018-02-28] MEDS ORDERED: Hydromorphone 0.5mg/0.5ml inj IVP PRN (09:30)
[2018-02-28] MEDS ORDERED: Metoclopramide 10mg/2ml Inj IVP PRN (09:30)
[2018-02-28] MEDS ORDERED: fentaNYL 100 mcg/2 mL IV PRN (09:30)
[2018-02-28] MEDS ORDERED: oxyCODONE HCL/Acetaminophen 5/325mg ORAL PRN (09:30)
[2018-02-28] MEDS ORDERED: Midazolam 2mg/2ml Inj IVP PRN (09:30)
--- NOTE | 2018-02-28 09:31 | Anethesia Preoperative Eval ---
Anesthesia Pre-op PMH/ROS General Date of Evaluation: Feb 28, 2018 Time of Evaluation: 09:14 Anesthesiologist: Kenyatta ASA Score: ASA 4 Mallampati Score Class I : Soft palate, uvula, fauces, pillars visible Class II: Soft palate, uvula, fauces visible Class III: Soft palate, base of uvula visible Class IV: Only hard plate visible Mallampati Classification: Class III Surgeon: Bryant Diagnosis: Abd Pain Surgical Procedure: EGD/Colonoscopy Anesthesia History: none Family History: no anesthesia problems Allergies: Coded Allergies: No Known Allergies (Unverified , 02/22/18) Medications: see eMAR Past Medical History Cardiovascular: Reports: HTN, arrhythmia - Pacemaker Neurologic/Psychiatric: Reports: dementia Endocrine: Reports: DM Hematology/Immune: Reports: anemia PSxH Narrative: Cholecystectomy Anesthesia Pre-op Phys. Exam Physician Exam Last Vital Signs Date Time Temp Pulse Resp B/P (MAP) Pulse Ox O2 Delivery O2 Flow Rate FiO2 02/28/18 08:00 135/63 (87) 02/28/18 04:00 88 02/28/18 04:00 98.0 20 95 98.0 02/27/18 21:00 Venturi Mask 02/27/18 19:47 10.0 45 Constitutional: NAD Neurologic: CN 2-12 intact Cardiovascular: RRR Respiratory: CTA Gastrointestinal: S/NT/ND Airway Exam Mallampati Score: Class III MO: limited ROM: limited Teeth: missing, intact Anesthesia Pre-op A/P Labs Hematology Test 02/28/18 06:55 White Blood Count 7.5 K/UL (4.8-10.8) Red Blood Count 3.41 M/UL (4.20-5.40) L Hemoglobin 9.3 G/DL (12.0-16.0) L Hematocrit 29.5 % (37.0-47.0) L Mean Corpuscular Volume 86 FL (80-99) Mean Corpuscular Hemoglobin 27.4 PG (27.0-31.0) Mean Corpuscular Hemoglobin Concent 31.7 G/DL (32.0-36.0) L Red Cell Distribution Width 15.7 % (11.6-14.8) H Platelet Count 378 K/UL (150-450) Mean Platelet Volume 7.3 FL (6.5-10.1) Neutrophils (%) (Auto) 65.3 % (45.0-75.0) Lymphocytes (%) (Auto) 21.7 % (20.0-45.0) Monocytes (%) (Auto) 9.8 % (1.0-10.0) Eosinophils (%) (Auto) 2.7 % (0.0-3.0) Basophils (%) (Auto) 0.5 % (0.0-2.0) Chemistry Test 02/28/18 06:55 Sodium Level 139 MMOL/L (136-145) Potassium Level 3.5 MMOL/L (3.5-5.1) Chloride Level 102 MMOL/L (98-107) Carbon Dioxide Level 30 MMOL/L (21-32) Anion Gap 8 mmol/L (5-15) Blood Urea Nitrogen 10 mg/dL (7-18) Creatinine 1.0 MG/DL (0.55-1.30) Estimat Glomerular Filtration Rate mL/min (>60) Glucose Level 151 MG/DL (74-106) H Calcium Level 8.2 MG/DL (8.5-10.1) L Risk Assessment & Plan Assessment: ASA 4 Plan: TIVA Status Change Before Surgery: No Yemi You MD Feb 28, 2018 09:31
--- NOTE | 2018-02-28 09:32 | Pulmonology Progress Note ---
Assessment/Plan Problems: (1) Shortness of breath (2) Acute exacerbation of CHF (congestive heart failure) Assessment/Plan ASSESSMENT: The patient is an 82-year-old female with a history of CHF, hypertension, hyperlipidemia, atrial fibrillation, possible dementia, admitted with shortness of breath likely secondary to decompensated heart failure. PROBLEM LIST: 1. Acute hypoxemic respiratory failure. 2. CHF with acute decompensated heart failure. 3. Hypertension. 4. Hyperlipidemia. 5. Diabetes. 6. Atrial fibrillation on anticoagulation. 7. Possible GERD. 8. Moderate R and small L pleural effusion 9. Atelectasis TREATMENT PLAN: 1. Optimize pulmonary hygiene/mobilize as tolerated. 2. Titrate down FiO2 to keep saturations greater than 90%. 3. P.r.n. bronchodilators. 4. Monitor volumes and renal function, diuresis as tolerated. 5. Monitor off antibiotics for signs of respiratory precautions. 6. Thoracentesis evaluation 7. Aspiration precautions 8. F/U GI recs, IV IRON, ENDOSCOPY TODAY 9. DVT prophylaxis. Xarelto held for procedures, + SCD's Subjective Allergies: Coded Allergies: No Known Allergies (Unverified , 02/22/18) Subjective O2 needs unchanged, AFVSS No cough, no SOB, no F/C Objective Last 24 Hour Vital Signs Date Time Temp Pulse Resp B/P (MAP) Pulse Ox O2 Delivery O2 Flow Rate FiO2 02/28/18 08:00 135/63 (87) 02/28/18 04:00 88 02/28/18 04:00 98.0 62 20 161/63 (95) 95 98.0 02/28/18 00:00 63 02/28/18 00:00 98.1 64 20 145/63 (90) 100 98.1 02/27/18 21:00 Venturi Mask 02/27/18 20:00 99.7 68 20 151/66 (94) 91 99.7 02/27/18 20:00 67 02/27/18 19:47 93 Venturi Mask 10.0 45 02/27/18 19:47 Venturi Mask 10.0 45 02/27/18 16:00 68 02/27/18 16:00 96.5 67 18 161/52 (88) 91 96.5 02/27/18 12:00 60 02/27/18 12:00 99.3 82 18 133/65 (87) 95 99.3 Intake and Output 02/27/18 02/28/18 19:00 07:00 Intake Total 1265 ml Balance 1265 ml Intake Oral 1265 ml # Voids 3 # Bowel Movements 1 General Appearance: WD/WN, no acute distress HEENT: normocephalic, atraumatic, anicteric, mucous membranes moist Respiratory/Chest: chest wall non-tender, lungs clear, normal breath sounds, no respiratory distress, no accessory muscle use Cardiovascular: normal peripheral pulses, normal rate, regular rhythm Abdomen: normal bowel sounds, soft, non tender, no organomegaly, non distended , no mass Extremities: no cyanosis, no clubbing, no edema Laboratory Tests 02/28/18 06:55: White Blood Count 7.5, Red Blood Count 3.41L, Hemoglobin 9.3L, Hematocrit 29.5L , Mean Corpuscular Volume 86, Mean Corpuscular Hemoglobin 27.4, Mean Corpuscular Hemoglobin Concent 31.7L, Red Cell Distribution Width 15.7H, Platelet Count 378, Mean Platelet Volume 7.3, Neutrophils (%) (Auto) 65.3, Lymphocytes (%) (Auto) 21.7, Monocytes (%) (Auto) 9.8, Eosinophils (%) (Auto) 2.7, Basophils (%) (Auto) 0.5, Sodium Level 139, Potassium Level 3.5, Chloride Level 102, Carbon Dioxide Level 30, Anion Gap 8, Blood Urea Nitrogen 10, Creatinine 1.0, Estimat Glomerular Filtration Rate , Glucose Level 151H, Calcium Level 8.2L Current Medications Medications (Trade) Dose Ordered Sig/Carlo Route PRN Reason Start Time Stop Time Status Last Admin Dose Admin Acetaminophen (Tylenol) 500 mg Q4H PRN ORAL Mild Pain/Temp > 100.5 02/23/18 02:00 03/25/18 01:59 02/26/18 17:09 Acetaminophen/ Hydrocodone Bitart ([place] 5/325) 1 tab Q1H PRN ORAL Mild Pain (Pain Scale 1-3) 02/28/18 09:30 UNV Acetaminophen/ Hydrocodone Bitart ([place] 7.5/325) 1 tab Q1H PRN ORAL Moderate Pain (Pain Scale 4-6) 02/28/18 09:30 UNV Al Hydroxide/Mg Hydroxide (Mylanta) 15 ml Q1H PRN ORAL gi upset 02/28/18 09:30 UNV Albuterol/ Ipratropium (Albuterol/ Ipratropium) 3 ml Q4H PRN HHN Shortness of Breath 02/23/18 10:30 02/28/18 10:29 02/23/18 11:00 Atropine Sulfate (Atropine) 0.5 mg Q5M PRN IV HR <40 02/28/18 09:30 UNV Ceftriaxone Sodium 1 gm/ Dextrose 55 ml @ 110 mls/hr Q24H IVPB 02/28/18 09:15 03/07/18 09:14 UNV Clonidine HCl (Catapres Tab) 0.1 mg Q2H PRN ORAL For High Blood Pressure 02/23/18 09:45 03/25/18 09:44 02/23/18 10:22 Dextrose (Dextrose 50%) 25 ml STAT PRN IV Hypoglycemia 02/23/18 02:00 03/25/18 01:59 Dextrose (Dextrose 50%) 50 ml STAT PRN IV Hypoglycemia 02/23/18 02:00 03/25/18 01:59 Diphenhydramine HCl (Benadryl) 25 mg Q15M PRN IVP Itching 02/28/18 09:30 UNV Docusate Sodium (Colace) 100 mg TWICE A DAY ORAL 02/26/18 09:00 03/28/18 08:59 02/27/18 17:42 Fentanyl Citrate (Sublimaze 100 mcg/2 mL) 25 mcg Q10M PRN IV Moderate Pain (Pain Scale 4-6) 02/28/18 09:30 UNV Furosemide (Lasix) 40 mg DAILY IV 02/24/18 09:00 03/26/18 08:59 02/28/18 08:47 Hydromorphone HCl (Dilaudid) 0.5 mg Q15M PRN IVP Severe Pain (Pain Scale 7-10) 02/28/18 09:30 UNV Insulin Aspart (NovoLOG) BEFORE MEALS AND HS SUBQ 02/23/18 06:30 03/25/18 06:29 02/28/18 06:32 Iron Sucrose 100 mg/Sodium Chloride 60 ml @ 240 mls/hr BEDTIME IV 02/26/18 21:00 03/02/18 21:14 02/27/18 21:39 Ketorolac Tromethamine (Toradol 30mg) 15 mg Q1H PRN IV Moderate Breakthru Pain (5-7) 02/28/18 09:30 UNV Ketorolac Tromethamine (Toradol 30mg) 30 mg Q1H PRN IV Severe Breakthru Pain (>7) 02/28/18 09:30 UNV Lactated Ringer's 1,000 ml @ 10 mls/hr Q24H IVLG 02/28/18 09:17 02/28/18 11:16 UNV Lorazepam (Ativan 2mg/ml 1ml) 1 mg Q15M PRN IV For Anxiety 02/28/18 09:30 UNV Metoclopramide HCl (Reglan) 5 mg Q8H PRN IVP Nausea & Vomiting 02/25/18 17:15 03/27/18 17:14 Metoclopramide HCl (Reglan) 10 mg Q1H PRN IVP Nausea & Vomiting 02/28/18 09:30 UNV Midazolam HCl (Versed 2mg/2ml vial) 1 mg Q15M PRN IVP For Anxiety 02/28/18 09:30 UNV Ondansetron HCl (Zofran) 4 mg Q1H PRN IVP Nausea & Vomiting 02/28/18 09:30 UNV Ondansetron HCl (Zofran) 4 mg Q6H PRN IVP Nausea & Vomiting 02/25/18 08:00 03/27/18 07:59 02/25/18 08:28 Oxycodone/ Acetaminophen (Percocet 5-325) 1 tab Q1H PRN ORAL Severe Pain (Pain Scale 7-10) 02/28/18 09:30 UNV Polyethylene Glycol (Miralax) 17 gm BEDTIME ORAL 02/26/18 21:00 03/28/18 20:59 02/26/18 21:12 Vinicius Miranda MD Feb 28, 2018 09:32
--- NOTE | 2018-02-28 09:33 | Immediate Post-Op Evaluation ---
Immediate Post-Op Evalulation Immediate Post-Op Evalulation Procedure: EGD/Colonoscopy Date of Evaluation: Feb 28, 2018 Time of Evaluation: 09:59 IV Fluids: 200 LR Blood Products: 0 Estimated Blood Loss: 1 Urinary Output: 0 Blood Pressure Systolic: 151 Blood Pressure Diastolic: 84 Pulse Rate: 60 Respiratory Rate: 16 O2 Sat by Pulse Oximetry: 98 Temperature (Fahrenheit): 98 Pain Score (1-10): 1 Nausea: No Vomiting: No Complications 0 Patient Status: awake, reacts, patent, none Hydration Status: adequate Yemi You MD Feb 28, 2018 09:33
--- NOTE | 2018-02-28 09:34 | 48 Hour Post Anesthesia Eval ---
Post Anesthesia Evaluation Procedure: EGD/Colonoscopy Date of Evaluation: Feb 28, 2018 Time of Evaluation: 12:01 Blood Pressure Systolic: 104 0: 69 Pulse Rate: 60 Respiratory Rate: 18 Temperature (Fahrenheit): 98.2 O2 Sat by Pulse Oximetry: 99 Airway: patent Nausea: No Vomiting: No Pain Intensity: 0 Hydration Status: adequate Cardiopulmonary Status: Stable Mental Status/LOC: patient returned to baseline Follow-up Care/Observations: 0 Post-Anesthesia Complications: 0 Follow-up care needed: N/A Yemi You MD Feb 28, 2018 09:33
--- NOTE | 2018-02-28 10:07 | Endoscopy Procedure Note ---
Endoscopy Procedure Note General Indication for Procedure: anemia Procedures Performed: EGD, colonoscopy Operative Findings/Diagnosis: gastritis, 2 polyps Specimen: yes Pt Tolerated Procedure Well: Yes Estimated Blood Loss: none Anesthesia Anesthesiologist: andres Anesthesia: MAC Inserted Devices Implant(s) used?: No Quality Quality of Bowel Preparation: Good Did scope reach the cecum?: Yes Was there any complications?: No GI Core Measures 50 yrs or older w/o bx or poly: Not Applicable 10yrs. F/U not recommended: Not Applicable Claudio Hurtado MD Feb 28, 2018 10:07
[2018-02-28] MEDS ORDERED: Lidocaine 1% Plain 30 ml INJ ONE ×2 (10:15→10:30)
[2018-02-28] MEDS: Docusate 100mg cap ORAL SCH ×2 (10:30→18:00)
[2018-02-28] MEDS: cefTRIAXone 1 GM in D5W 55 ML IVPB SCH (11:30)
--- NOTE | 2018-02-28 12:49 | General Progress Note ---
Assessment/Plan Status: unchanged Assessment/Plan #. Anemia of iron deficiency, ferritin is low --> 4days of iv iron has been ordered --> closely monitor for improvement --> Hgb goal >7 #. Coagulopathy is likely related to xarelto use --> continue per cards, is mild #. Anticoagulant use. The patient is on Xarelto for atrial fibrillation. #. Shortness of breath and elevated BNP, potentially concerning for congestive heart failure. --> sob improving, no wheezing #. Elevated D-dimer. Recommendations by Dr. Miranda. --> Consider further imaging as per his recs #. Possible gastroesophageal reflux disease. #. Hyperlipidemia. LDL goal less than 70. The time the note was entered does not necessarily correspond to the time the patient was seen. Subjective Date patient seen: Feb 28, 2018 Hematologic/Lymphatic: Reports: anemia Allergies: Coded Allergies: No Known Allergies (Unverified , 02/22/18) All Systems: reviewed and negative except above Subjective Pt s/p EGD/colonoscopy. Xarelto on hod for thoracentesis. Objective Last 24 Hour Vital Signs Date Time Temp Pulse Resp B/P (MAP) Pulse Ox O2 Delivery O2 Flow Rate FiO2 02/28/18 10:25 98.3 60 20 101/57 99 Venturi Mask 10 45 98.3 02/28/18 10:15 60 19 97/56 99 Venturi Mask 10 45 02/28/18 10:05 60 21 99/57 99 Venturi Mask 10 45 02/28/18 09:58 60 20 100/56 99 Simple Mask 6 02/28/18 09:53 60 22 99/56 96 Simple Mask 6 02/28/18 09:50 208.8 60 18 99 02/28/18 09:48 98.0 61 16 151/84 96 Simple Mask 6 98.0 02/28/18 08:00 135/63 (87) 02/28/18 08:00 67 02/28/18 04:00 88 02/28/18 04:00 98.0 62 20 161/63 (95) 95 98.0 02/28/18 00:00 63 02/28/18 00:00 98.1 64 20 145/63 (90) 100 98.1 02/27/18 21:00 Venturi Mask 02/27/18 20:00 99.7 68 20 151/66 (94) 91 99.7 02/27/18 20:00 67 02/27/18 19:47 93 Venturi Mask 10.0 45 02/27/18 19:47 Venturi Mask 10.0 45 02/27/18 16:00 68 02/27/18 16:00 96.5 67 18 161/52 (88) 91 96.5 Intake and Output 02/27/18 02/28/18 19:00 07:00 Intake Total 1265 ml Balance 1265 ml Intake Oral 1265 ml # Voids 3 # Bowel Movements 1 Laboratory Tests 02/28/18 06:55: White Blood Count 7.5, Red Blood Count 3.41L, Hemoglobin 9.3L, Hematocrit 29.5L , Mean Corpuscular Volume 86, Mean Corpuscular Hemoglobin 27.4, Mean Corpuscular Hemoglobin Concent 31.7L, Red Cell Distribution Width 15.7H, Platelet Count 378, Mean Platelet Volume 7.3, Neutrophils (%) (Auto) 65.3, Lymphocytes (%) (Auto) 21.7, Monocytes (%) (Auto) 9.8, Eosinophils (%) (Auto) 2.7, Basophils (%) (Auto) 0.5, Sodium Level 139, Potassium Level 3.5, Chloride Level 102, Carbon Dioxide Level 30, Anion Gap 8, Blood Urea Nitrogen 10, Creatinine 1.0, Estimat Glomerular Filtration Rate , Glucose Level 151H, Calcium Level 8.2L Height (Feet): 4 Height (Inches): 11.00 Weight (Pounds): 131 General Appearance: no apparent distress, confused EENT: PERRL/EOMI Neck: normal alignment Cardiovascular: normal peripheral pulses Respiratory/Chest: no respiratory distress Abdomen: tender Noel Langston MD Feb 28, 2018 12:49
--- NOTE | 2018-02-28 14:26 | Cardiac Electrophysiology PN ---
Assessment/Plan Assessment/Plan 1. Status post [place] [employer] permanent pacemaker implantation. EKG is atrially paced at rate of 60 with nonspecific T-wave abnormality. Pacer interrogation showed Nl Fx 2. Shortness of breath and elevated BNP likely secondary to congestive heart failure. EF 55%. On Lasix 40 mg IV daily. 3. Paroxysmal atrial fibrillation, on a Xarelto, currently in sinus rhythm. 4. Elevated D-dimer. Had V/Q scan that was intermediate probability. Chest CT no PE or dissection. Follow up Dr. Miranda's 5. Vomiting. KUB is negative.Had EGD and colonoscopy by Dr stringer today 6. Right pleural effusion. Thoracentesis tomorrow DW RN Subjective Subjective No CP or SOB. Had EGD and colonoscopy today.Right thoracentesis was rescheduled for tomorrow Objective Last 24 Hour Vital Signs Date Time Temp Pulse Resp B/P (MAP) Pulse Ox O2 Delivery O2 Flow Rate FiO2 02/28/18 10:25 98.3 60 20 101/57 99 Venturi Mask 10 45 98.3 02/28/18 10:15 60 19 97/56 99 Venturi Mask 10 45 02/28/18 10:05 60 21 99/57 99 Venturi Mask 10 45 02/28/18 09:58 60 20 100/56 99 Simple Mask 6 02/28/18 09:53 60 22 99/56 96 Simple Mask 6 02/28/18 09:50 208.8 60 18 99 02/28/18 09:48 98.0 61 16 151/84 96 Simple Mask 6 98.0 02/28/18 08:00 135/63 (87) 02/28/18 08:00 67 02/28/18 04:00 88 02/28/18 04:00 98.0 62 20 161/63 (95) 95 98.0 02/28/18 00:00 63 02/28/18 00:00 98.1 64 20 145/63 (90) 100 98.1 02/27/18 21:00 Venturi Mask 02/27/18 20:00 99.7 68 20 151/66 (94) 91 99.7 02/27/18 20:00 67 02/27/18 19:47 93 Venturi Mask 10.0 45 02/27/18 19:47 Venturi Mask 10.0 45 02/27/18 16:00 68 7/8/18 16:00 96.5 67 18 161/52 (88) 91 96.5 Intake and Output 02/27/18 02/28/18 19:00 07:00 Intake Total 1265 ml Balance 1265 ml Intake Oral 1265 ml # Voids 3 # Bowel Movements 1 Laboratory Tests Test 02/28/18 06:55 White Blood Count 7.5 K/UL (4.8-10.8) Red Blood Count 3.41 M/UL (4.20-5.40) L Hemoglobin 9.3 G/DL (12.0-16.0) L Hematocrit 29.5 % (37.0-47.0) L Mean Corpuscular Volume 86 FL (80-99) Mean Corpuscular Hemoglobin 27.4 PG (27.0-31.0) Mean Corpuscular Hemoglobin Concent 31.7 G/DL (32.0-36.0) L Red Cell Distribution Width 15.7 % (11.6-14.8) H Platelet Count 378 K/UL (150-450) Mean Platelet Volume 7.3 FL (6.5-10.1) Neutrophils (%) (Auto) 65.3 % (45.0-75.0) Lymphocytes (%) (Auto) 21.7 % (20.0-45.0) Monocytes (%) (Auto) 9.8 % (1.0-10.0) Eosinophils (%) (Auto) 2.7 % (0.0-3.0) Basophils (%) (Auto) 0.5 % (0.0-2.0) Sodium Level 139 MMOL/L (136-145) Potassium Level 3.5 MMOL/L (3.5-5.1) Chloride Level 102 MMOL/L (98-107) Carbon Dioxide Level 30 MMOL/L (21-32) Anion Gap 8 mmol/L (5-15) Blood Urea Nitrogen 10 mg/dL (7-18) Creatinine 1.0 MG/DL (0.55-1.30) Estimat Glomerular Filtration Rate mL/min (>60) Glucose Level 151 MG/DL (74-106) H Calcium Level 8.2 MG/DL (8.5-10.1) L Objective HEAD AND NECK: No JV. On 2 liter NC LUNGS: Clear. CARDIOVASCULAR: Regular S1 and S2. Pacemaker in left subclavian. ABDOMEN: Soft. EXTREMITIES: No pitting edema. Parvzi Reid MD Feb 28, 2018 14:26
--- NOTE | 2018-02-28 14:27 | General Progress Note ---
Assessment/Plan Problem List: (1) Shortness of breath ICD Codes: R06.02 - Shortness of breath SNOMED: 030382019 (2) Acute exacerbation of CHF (congestive heart failure) ICD Codes: I50.9 - Heart failure, unspecified SNOMED: 19202296 Status: progressing Assessment/Plan no sob had fever yesterday needs iv abx sepsis chf exacerbation improving Subjective ROS Limited/Unobtainable: Yes Constitutional: Reports: no symptoms Allergies: Coded Allergies: No Known Allergies (Unverified , 02/22/18) Objective Last 24 Hour Vital Signs Date Time Temp Pulse Resp B/P (MAP) Pulse Ox O2 Delivery O2 Flow Rate FiO2 02/28/18 10:25 98.3 60 20 101/57 99 Venturi Mask 10 45 98.3 02/28/18 10:15 60 19 97/56 99 Venturi Mask 10 45 02/28/18 10:05 60 21 99/57 99 Venturi Mask 10 45 02/28/18 09:58 60 20 100/56 99 Simple Mask 6 02/28/18 09:53 60 22 99/56 96 Simple Mask 6 02/28/18 09:50 208.8 60 18 99 02/28/18 09:48 98.0 61 16 151/84 96 Simple Mask 6 98.0 02/28/18 08:00 135/63 (87) 02/28/18 08:00 67 02/28/18 04:00 88 02/28/18 04:00 98.0 62 20 161/63 (95) 95 98.0 02/28/18 00:00 63 02/28/18 00:00 98.1 64 20 145/63 (90) 100 98.1 02/27/18 21:00 Venturi Mask 02/27/18 20:00 99.7 68 20 151/66 (94) 91 99.7 02/27/18 20:00 67 02/27/18 19:47 93 Venturi Mask 10.0 45 02/27/18 19:47 Venturi Mask 10.0 45 02/27/18 16:00 68 02/27/18 16:00 96.5 67 18 161/52 (88) 91 96.5 Intake and Output 02/27/18 02/28/18 19:00 07:00 Intake Total 1265 ml Balance 1265 ml Intake Oral 1265 ml # Voids 3 # Bowel Movements 1 Laboratory Tests 02/28/18 06:55: White Blood Count 7.5, Red Blood Count 3.41L, Hemoglobin 9.3L, Hematocrit 29.5L , Mean Corpuscular Volume 86, Mean Corpuscular Hemoglobin 27.4, Mean Corpuscular Hemoglobin Concent 31.7L, Red Cell Distribution Width 15.7H, Platelet Count 378, Mean Platelet Volume 7.3, Neutrophils (%) (Auto) 65.3, Lymphocytes (%) (Auto) 21.7, Monocytes (%) (Auto) 9.8, Eosinophils (%) (Auto) 2.7, Basophils (%) (Auto) 0.5, Sodium Level 139, Potassium Level 3.5, Chloride Level 102, Carbon Dioxide Level 30, Anion Gap 8, Blood Urea Nitrogen 10, Creatinine 1.0, Estimat Glomerular Filtration Rate , Glucose Level 151H, Calcium Level 8.2L Height (Feet): 4 Height (Inches): 11.00 Weight (Pounds): 131 Neck: supple Cardiovascular: normal rate Respiratory/Chest: lungs clear Abdomen: soft Johnna Ruiz MD Feb 28, 2018 14:27
--- NOTE | 2018-02-28 16:45 | Procedure Note ---
DATE OF PROCEDURE: 02/28/2018 SURGEON: Claudio Hurtado M.D. ANESTHESIOLOGIST: Dr. You. REFERRING PHYSICIAN: Johnna Ruiz M.D. PROCEDURE: Upper endoscopy with biopsy and colonoscopy with biopsy and snare polypectomy. ANESTHESIA: Per Dr. You. INSTRUMENT: Olympus adult flexible upper endoscope and colonoscope. INDICATION: Anemia. The procedure, risks, benefits, and possible consequences, including hemorrhage, aspiration, perforation and infection, and alternative treatments, were explained to the patient/legal guardian by Dr. Claudio Hurtado and the patient/legal guardian understood and accepted these risks. DESCRIPTION OF PROCEDURE: After informed consent was obtained and the patient was adequately sedated, Olympus upper endoscope was advanced from the mouth into the second portion of the duodenum and retroflexion was performed in the stomach. The patient has evidence of diffuse gastritis. Random biopsy from antrum and body was obtained to rule out H. pylori infection. Otherwise, the rest of the upper endoscopic examination grossly looked within normal limits. At this time, the upper endoscope was retrieved and the patient was turned over for colonoscopy. First, rectal exam was performed which showed positive for internal hemorrhoids. Then, the scope was advanced from the rectum into anastomosis. The patient has prior history of right hemicolectomy. The patient had two polyps in transverse colon, one measured about 6 mm and removed with the snare polypectomy technique, the other one was small and removed with cold biopsy forceps technique. The rest of the exam was grossly within normal limit. Retroflexion of rectum showed evidence of internal hemorrhoids. SUMMARY OF FINDINGS: 1. Gastritis, status post biopsy. 2. Two colonic polyps removed, see above for details. 3. History of right hemicolectomy. 4. Internal hemorrhoids. RECOMMENDATIONS: Follow up biopsy results and treat accordingly. I want to thank, Dr. Ruiz, for this kind referral. Claudio Hurtado M.D. DRMarvin Araujo JOB#: [id number] CC: Johnna Ruiz M.D.; Fax#: [phone]
[2018-02-28] MEDS: Miralax 17gm pkt ORAL SCH (21:00)
[2018-02-28] MEDS: Iron Sucrose 100 MG in NS 55 ML IV SCH (21:41)
[2018-03-01] VITALS: BP 160/65
[2018-03-01 04:00] VITALS: BP 181/61
[2018-03-01] MEDS: NovoLOG Insulin Flexpen SUBQ SCH ×4 (05:52→20:46)
[2018-03-01 07:35] LABS: BASOPHILS % (AUTO) 0.8 % (0.0-2.0); EOSINOPHILS % (AUTO) 5.5 % (0.0-3.0); HEMATOCRIT 29.9 % (37.0-47.0); HEMOGLOBIN 9.6 G/DL (12.0-16.0); LYMPHOCYTES % (AUTO) 31.8 % (20.0-45.0); MEAN CORPUSCULAR VOLUME 86 FL (80-99); MONOCYTES % (AUTO) 10.4 % (1.0-10.0); NEUTROPHILS % (AUTO) 51.6 % (45.0-75.0); PLATELET COUNT 356 K/UL (150-450); RED BLOOD COUNT 3.49 M/UL (4.20-5.40); RED CELL DISTRIBUTION WIDTH 15.8 % (11.6-14.8); WHITE BLOOD COUNT 6.6 K/UL (4.8-10.8)
[2018-03-01 08:00] VITALS: BP 160/54
[2018-03-01 08:55] LABS: ANION GAP 4 mmol/L (5-15); BLOOD UREA NITROGEN 10 mg/dL (7-18); CALCIUM 8.2 MG/DL (8.5-10.1); CARBON DIOXIDE 29 MMOL/L (21-32); CHLORIDE 106 MMOL/L (98-107); CREATININE 0.9 MG/DL (0.55-1.30); POTASSIUM 3.3 MMOL/L (3.5-5.1); SODIUM 139 MMOL/L (136-145)
[2018-03-01] MEDS: Docusate 100mg cap ORAL SCH ×2 (08:55→17:00)
--- NOTE | 2018-03-01 08:55 | GI Progress Note ---
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 Hurtado. Assessment/Plan SUMMARY OF FINDINGS: 1. Gastritis, status post biopsy. 2. Two colonic polyps removed, see above for details. 3. History of right hemicolectomy. 4. Internal hemorrhoids. RECOMMENDATIONS: follow up biopsy results and treat accordingly. pierre jeffrey DM control fu stool ob tumor markers thoracentesis today >>defer to pulmonary abd us>>>gallstones fu labs Subjective Gastrointestinal/Abdominal: Reports: no symptoms Objective Last 24 Hour Vital Signs Date Time Temp Pulse Resp B/P (MAP) Pulse Ox O2 Delivery O2 Flow Rate FiO2 03/01/18 08:00 98.2 60 18 160/54 (89) 93 98.2 03/01/18 04:27 181/61 03/01/18 04:00 97.3 68 20 181/61 (101) 94 97.3 03/01/18 04:00 53 03/01/18 00:00 98.2 73 20 160/65 (96) 95 98.2 03/01/18 00:00 75 02/28/18 21:00 Nasal Cannula 2.0 02/28/18 20:00 98.2 69 20 162/77 (105) 93 98.2 02/28/18 20:00 67 02/28/18 19:08 94 Venturi Mask 10.0 45 02/28/18 19:08 Venturi Mask 10.0 45 02/28/18 16:00 97.9 65 20 136/72 (93) 95 97.9 02/28/18 16:00 65 02/28/18 12:00 63 02/28/18 12:00 98.0 62 20 140/74 (96) 95 98.0 02/28/18 10:25 98.3 60 20 101/57 99 Venturi Mask 10 45 98.3 02/28/18 10:15 60 19 97/56 99 Venturi Mask 10 45 02/28/18 10:05 60 21 99/57 99 Venturi Mask 10 45 02/28/18 09:58 60 20 100/56 99 Simple Mask 6 02/28/18 09:53 60 22 99/56 96 Simple Mask 6 02/28/18 09:50 208.8 60 18 99 02/28/18 09:48 98.0 61 16 151/84 96 Simple Mask 6 98.0 02/28/18 09:00 Venturi Mask Intake and Output 02/28/18 03/01/18 19:00 07:00 Intake Total 780 ml Balance 780 ml Intake Oral 480 ml IV Total 300 ml # Voids 3 2 # Bowel Movements 1 Laboratory Tests Test 03/01/18 06:30 White Blood Count 6.6 K/UL (4.8-10.8) Red Blood Count 3.49 M/UL (4.20-5.40) L Hemoglobin 9.6 G/DL (12.0-16.0) L Hematocrit 29.9 % (37.0-47.0) L Mean Corpuscular Volume 86 FL (80-99) Mean Corpuscular Hemoglobin 27.5 PG (27.0-31.0) Mean Corpuscular Hemoglobin Concent 32.1 G/DL (32.0-36.0) Red Cell Distribution Width 15.8 % (11.6-14.8) H Platelet Count 356 K/UL (150-450) Mean Platelet Volume 7.3 FL (6.5-10.1) Neutrophils (%) (Auto) 51.6 % (45.0-75.0) Lymphocytes (%) (Auto) 31.8 % (20.0-45.0) Monocytes (%) (Auto) 10.4 % (1.0-10.0) H Eosinophils (%) (Auto) 5.5 % (0.0-3.0) H Basophils (%) (Auto) 0.8 % (0.0-2.0) Height (Feet): 4 Height (Inches): 11.00 Weight (Pounds): 128 General Appearance: WD/WN, no apparent distress, alert Cardiovascular: normal rate Respiratory/Chest: normal breath sounds, no respiratory distress Abdominal Exam: normal bowel sounds, non tender, soft Extremities: non-tender Yosvany Gonsales NP Mar 01, 2018 08:55
[2018-03-01] MEDS: cefTRIAXone 1 GM in D5W 55 ML IVPB SCH (08:56)
[2018-03-01 09:27] LABS: INR 1.1 (0.9-1.1)
[2018-03-01] MEDS ORDERED: Lidocaine 1% Plain 30 ml INJ PRN (11:00)
[2018-03-01 12:00] VITALS: BP 154/63
--- NOTE | 2018-03-01 13:40 | Diagnostic Imaging Report ---
Indication: Pleural effusion Technique: US Chest Comparison: Correlate made to CT angiogram of the chest 02/25/2018 FINDINGS/IMPRESSION: Limited scanning of the bilateral chest demonstrates a trace left pleural effusion and a very small right pleural effusion. No suitable pocket for thoracentesis identified. No procedure performed.
[2018-03-01] MEDS ORDERED: ROCEPHIN 11 GM/50 ML IVPB (14:02)
[2018-03-01 16:00] VITALS: BP 152/70
--- NOTE | 2018-03-01 16:19 | General Progress Note ---
Assessment/Plan Status: stable Assessment/Plan #. Anemia of iron deficiency, ferritin is low --> 4days of iv iron has been ordered --> closely monitor for improvement --> Hgb goal >7 #. Coagulopathy is likely related to xarelto use --> continue per cards, is mild #. Anticoagulant use. The patient is on Xarelto for atrial fibrillation. #. Shortness of breath and elevated BNP, potentially concerning for congestive heart failure. --> sob improving, no wheezing #. Elevated D-dimer. Recommendations by Dr. Miranda. --> Consider further imaging as per his recs #. Possible gastroesophageal reflux disease. #. Hyperlipidemia. LDL goal less than 70. The time the note was entered does not necessarily correspond to the time the patient was seen. Subjective Date patient seen: Mar 01, 2018 Hematologic/Lymphatic: Reports: anemia Allergies: Coded Allergies: No Known Allergies (Unverified , 02/22/18) All Systems: reviewed and negative except above Subjective Chest US shows no suitable pocket for thoracentesis identified. No acute events. Pt is stable. DC planning to snf. Objective Last 24 Hour Vital Signs Date Time Temp Pulse Resp B/P (MAP) Pulse Ox O2 Delivery O2 Flow Rate FiO2 03/01/18 12:00 98.1 60 18 154/63 (93) 95 98.1 03/01/18 11:58 56 03/01/18 09:00 Nasal Cannula 2.0 03/01/18 08:00 98.2 60 18 160/54 (89) 93 98.2 03/01/18 07:52 60 03/01/18 07:40 94 Venturi Mask 4.0 36 03/01/18 07:40 Nasal Cannula 4.0 36 03/01/18 04:27 181/61 03/01/18 04:00 97.3 68 20 181/61 (101) 94 97.3 03/01/18 04:00 53 03/01/18 00:00 98.2 73 20 160/65 (96) 95 98.2 03/01/18 00:00 75 02/28/18 21:00 Nasal Cannula 2.0 02/28/18 20:00 98.2 69 20 162/77 (105) 93 98.2 02/28/18 20:00 67 02/28/18 19:08 94 Venturi Mask 10.0 45 02/28/18 19:08 Venturi Mask 10.0 45 Intake and Output 02/28/18 03/01/18 19:00 07:00 Intake Total 780 ml Balance 780 ml Intake Oral 480 ml IV Total 300 ml # Voids 3 2 # Bowel Movements 1 Laboratory Tests 03/01/18 06:30: White Blood Count 6.6, Red Blood Count 3.49L, Hemoglobin 9.6L, Hematocrit 29.9L , Mean Corpuscular Volume 86, Mean Corpuscular Hemoglobin 27.5, Mean Corpuscular Hemoglobin Concent 32.1, Red Cell Distribution Width 15.8H, Platelet Count 356, Mean Platelet Volume 7.3, Neutrophils (%) (Auto) 51.6, Lymphocytes (%) (Auto) 31.8, Monocytes (%) (Auto) 10.4H, Eosinophils (%) (Auto) 5.5H, Basophils (%) (Auto) 0.8, Sodium Level 139, Potassium Level 3.3L, Chloride Level 106, Carbon Dioxide Level 29, Anion Gap 4L, Blood Urea Nitrogen 10, Creatinine 0.9, Glucose Level 180H, Calcium Level 8.2L 03/01/18 08:50: Prothrombin Time 11.2, Prothromb Time International Ratio 1.1, Estimat Glomerular Filtration Rate Height (Feet): 4 Height (Inches): 11.00 Weight (Pounds): 128 General Appearance: no apparent distress, alert EENT: PERRL/EOMI Neck: normal alignment Cardiovascular: normal peripheral pulses Respiratory/Chest: no respiratory distress Abdomen: normal bowel sounds Noel Langston MD Mar 01, 2018 16:19
--- NOTE | 2018-03-01 16:58 | Cardiac Electrophysiology PN ---
Assessment/Plan Assessment/Plan 1. Status post [place] [employer] permanent pacemaker implantation. EKG is atrially paced at rate of 60 with nonspecific T-wave abnormality. Pacer interrogation showed Nl Fx 2. Shortness of breath and elevated BNP likely secondary to congestive heart failure. EF 55%. On Lasix 40 mg IV daily. 3. Paroxysmal atrial fibrillation, on a Xarelto, currently in sinus rhythm. 4. Elevated D-dimer. Had V/Q scan that was intermediate probability. Chest CT no PE or dissection. Follow up Dr. Miranda's 5. Vomiting. KUB is negative.Had EGD and colonoscopy by Dr stringer 6. Right pleural effusion. Thoracentesis Cancelled. KALEY RN DC planning today to SNIF Subjective Subjective No CP or SOB. Had EGD and colonoscopy.Right thoracentesis was cancelled as it was too small. Objective Last 24 Hour Vital Signs Date Time Temp Pulse Resp B/P (MAP) Pulse Ox O2 Delivery O2 Flow Rate FiO2 03/01/18 16:00 97.7 71 18 152/70 (97) 95 97.7 03/01/18 15:34 55 03/01/18 12:00 98.1 60 18 154/63 (93) 95 98.1 03/01/18 11:58 56 03/01/18 09:00 Nasal Cannula 2.0 03/01/18 08:00 98.2 60 18 160/54 (89) 93 98.2 03/01/18 07:52 60 03/01/18 07:40 94 Venturi Mask 4.0 36 03/01/18 07:40 Nasal Cannula 4.0 36 03/01/18 04:27 181/61 03/01/18 04:00 97.3 68 20 181/61 (101) 94 97.3 03/01/18 04:00 53 03/01/18 00:00 98.2 73 20 160/65 (96) 95 98.2 03/01/18 00:00 75 02/28/18 21:00 Nasal Cannula 2.0 02/28/18 20:00 98.2 69 20 162/77 (105) 93 98.2 02/28/18 20:00 67 02/28/18 19:08 94 Venturi Mask 10.0 45 02/28/18 19:08 Venturi Mask 10.0 45 Intake and Output 02/28/18 03/01/18 19:00 07:00 Intake Total 780 ml Balance 780 ml Intake Oral 480 ml IV Total 300 ml # Voids 3 2 # Bowel Movements 1 Laboratory Tests Test 03/01/18 06:30 03/01/18 08:50 White Blood Count 6.6 K/UL (4.8-10.8) Red Blood Count 3.49 M/UL (4.20-5.40) L Hemoglobin 9.6 G/DL (12.0-16.0) L Hematocrit 29.9 % (37.0-47.0) L Mean Corpuscular Volume 86 FL (80-99) Mean Corpuscular Hemoglobin 27.5 PG (27.0-31.0) Mean Corpuscular Hemoglobin Concent 32.1 G/DL (32.0-36.0) Red Cell Distribution Width 15.8 % (11.6-14.8) H Platelet Count 356 K/UL (150-450) Mean Platelet Volume 7.3 FL (6.5-10.1) Neutrophils (%) (Auto) 51.6 % (45.0-75.0) Lymphocytes (%) (Auto) 31.8 % (20.0-45.0) Monocytes (%) (Auto) 10.4 % (1.0-10.0) H Eosinophils (%) (Auto) 5.5 % (0.0-3.0) H Basophils (%) (Auto) 0.8 % (0.0-2.0) Sodium Level 139 MMOL/L (136-145) Potassium Level 3.3 MMOL/L (3.5-5.1) L Chloride Level 106 MMOL/L (98-107) Carbon Dioxide Level 29 MMOL/L (21-32) Anion Gap 4 mmol/L (5-15) L Blood Urea Nitrogen 10 mg/dL (7-18) Creatinine 0.9 MG/DL (0.55-1.30) Glucose Level 180 MG/DL (74-106) H Calcium Level 8.2 MG/DL (8.5-10.1) L Prothrombin Time 11.2 SEC (9.30-11.50) Prothromb Time International Ratio 1.1 (0.9-1.1) Estimat Glomerular Filtration Rate mL/min (>60) Objective HEAD AND NECK: No JVD. On 2 liter NC LUNGS: Clear. CARDIOVASCULAR: Regular S1 and S2. Pacemaker in left subclavian. ABDOMEN: Soft. EXTREMITIES: No pitting edema. Parviz Reid MD Mar 01, 2018 16:58
--- NOTE | 2018-03-01 17:22 | General Progress Note ---
Assessment/Plan Problem List: (1) Shortness of breath ICD Codes: R06.02 - Shortness of breath SNOMED: 036753282 (2) Acute exacerbation of CHF (congestive heart failure) ICD Codes: I50.9 - Heart failure, unspecified SNOMED: 24373497 Status: progressing Assessment/Plan intermittent fever needs iv abx so is going to snf to finish off iv abx and go home afterwards also needs pt/ot le weakness sepsis chf exacerbation improving Subjective ROS Limited/Unobtainable: Yes Allergies: Coded Allergies: No Known Allergies (Unverified , 02/22/18) Objective Last 24 Hour Vital Signs Date Time Temp Pulse Resp B/P (MAP) Pulse Ox O2 Delivery O2 Flow Rate FiO2 03/01/18 16:00 97.7 71 18 152/70 (97) 95 97.7 03/01/18 15:34 55 03/01/18 12:00 98.1 60 18 154/63 (93) 95 98.1 03/01/18 11:58 56 03/01/18 09:00 Nasal Cannula 2.0 03/01/18 08:00 98.2 60 18 160/54 (89) 93 98.2 03/01/18 07:52 60 03/01/18 07:40 94 Venturi Mask 4.0 36 03/01/18 07:40 Nasal Cannula 4.0 36 03/01/18 04:27 181/61 03/01/18 04:00 97.3 68 20 181/61 (101) 94 97.3 03/01/18 04:00 53 03/01/18 00:00 98.2 73 20 160/65 (96) 95 98.2 03/01/18 00:00 75 02/28/18 21:00 Nasal Cannula 2.0 02/28/18 20:00 98.2 69 20 162/77 (105) 93 98.2 02/28/18 20:00 67 02/28/18 19:08 94 Venturi Mask 10.0 45 02/28/18 19:08 Venturi Mask 10.0 45 Intake and Output 02/28/18 03/01/18 19:00 07:00 Intake Total 780 ml Balance 780 ml Intake Oral 480 ml IV Total 300 ml # Voids 3 2 # Bowel Movements 1 Laboratory Tests 03/01/18 06:30: White Blood Count 6.6, Red Blood Count 3.49L, Hemoglobin 9.6L, Hematocrit 29.9L , Mean Corpuscular Volume 86, Mean Corpuscular Hemoglobin 27.5, Mean Corpuscular Hemoglobin Concent 32.1, Red Cell Distribution Width 15.8H, Platelet Count 356, Mean Platelet Volume 7.3, Neutrophils (%) (Auto) 51.6, Lymphocytes (%) (Auto) 31.8, Monocytes (%) (Auto) 10.4H, Eosinophils (%) (Auto) 5.5H, Basophils (%) (Auto) 0.8, Sodium Level 139, Potassium Level 3.3L, Chloride Level 106, Carbon Dioxide Level 29, Anion Gap 4L, Blood Urea Nitrogen 10, Creatinine 0.9, Glucose Level 180H, Calcium Level 8.2L 03/01/18 08:50: Prothrombin Time 11.2, Prothromb Time International Ratio 1.1, Estimat Glomerular Filtration Rate Height (Feet): 4 Height (Inches): 11.00 Weight (Pounds): 128 Cardiovascular: normal rate Respiratory/Chest: lungs clear Abdomen: soft Johnna Ruiz MD Mar 01, 2018 17:22
[2018-03-01 20:00] VITALS: BP 135/57
[2018-03-01] MEDS ORDERED: Tubing IV Secondary IV ONE (20:59)
[2018-03-01] MEDS ORDERED: NS 275ml ONE (20:59)
[2018-03-01] MEDS: Miralax 17gm pkt ORAL SCH (21:00)
[2018-03-01] MEDS ORDERED: Iron Sucrose 100 MG in NS 55 ML IV SCH (21:00)
--- NOTE | 2018-03-01 22:15 | Consultation ---
DATE OF CONSULTATION: 03/01/2018 INFECTIOUS DISEASES CONSULTATION CONSULTING PHYSICIAN: Meme Perez M.D. REFERRING PHYSICIAN: Dr. Johnna Ruiz. This consultation has been done on behalf of Dr. David Leach. HISTORY OF PRESENTING ILLNESS: This is an 82-year-old gentleman with history of diabetes, hypertension, pacemaker placement who comes in with shortness of breath. He was found to have congestive heart failure. There is also a concern for pneumonia and an Infectious Diseases consultation has been obtained for antibiotics. PAST MEDICAL HISTORY: 1. History of diabetes. 2. Hypertension. 3. Pacemaker placement. SOCIAL HISTORY: No history of smoking, alcohol, or drug use. FAMILY HISTORY: Unknown. REVIEW OF SYSTEMS: Unable to obtain currently. MEDICATIONS: As an inpatient, the patient is on polyethylene glycol, docusate, metoclopramide, Zofran, Lasix, clonidine, insulin, Tylenol, ceftriaxone, lidocaine and . ALLERGIES: No known drug allergies. PHYSICAL EXAMINATION: VITAL SIGNS: Temperature of 98.2 degrees, T-max of 98.3 degrees, pulse of 60, respiratory rate of 18, blood pressure 160/54, and O2 saturation of 93%. HEENT: Pupils equally reactive to light and accommodation. Mouth appears clean without thrush. NECK: Supple. No adenopathy. No JVD. CARDIOVASCULAR: Regular rate and rhythm. No murmurs. LUNGS: Clear to auscultation bilaterally. No wheezes. ABDOMEN: Soft, nontender. No organomegaly. EXTREMITIES: No cyanosis, no clubbing, and no edema. LABORATORY AND DIAGNOSTIC DATA: White count was 15.6 on 02/25/2018 and now down to 6.6, hemoglobin 9.6, hematocrit 29.9, MCV 86, and platelet count of 356. Sodium 139, potassium 3.3, chloride 106, bicarbonate 29, BUN 10, creatinine 0.9, glucose . Calcium 8.2. Total bilirubin 0.4. AST 25, ALT 33 and alkaline phosphatase 374. Blood cultures are negative so far. Abdominal ultrasound showing cholelithiasis without gallbladder wall thickening. No hydronephrosis. Small right-sided pleural effusion noted. CT chest angiogram showing no evidence of pulmonary embolism. Moderate right-sided pleural effusion and small left-sided pleural effusion noted. Abdominal x-ray showing no acute findings. V/Q scan showing low to intermediate probability for PE. Chest x-ray showing bilateral pulmonary infiltrates and pleural effusion. ASSESSMENT: 1. This is an 82-year-old lady with history of diabetes and hypertension, who comes in and is found to have a pneumonia. 2. Pleural effusion. 3. Congestive heart failure. PLAN: 1. Continue ceftriaxone. 2. We will order sputum for Gram-stain and culture. 3. We will follow up cultures and adjust antibiotics accordingly. I would like to thank, Dr. Ruiz, for this consultation. Meme Perez M.D. DR: ANY JOB#: [id number] CC: Johnna Ruiz M.D.; Fax#: [phone]
--- NOTE | 2018-03-01 22:29 | Pulmonology Progress Note ---
Assessment/Plan Problems: (1) Shortness of breath (2) Acute exacerbation of CHF (congestive heart failure) Assessment/Plan ASSESSMENT: The patient is an 82-year-old female with a history of CHF, hypertension, hyperlipidemia, atrial fibrillation, possible dementia, admitted with shortness of breath likely secondary to decompensated heart failure. PROBLEM LIST: 1. Acute hypoxemic respiratory failure. 2. CHF with acute decompensated heart failure. 3. Hypertension. 4. Hyperlipidemia. 5. Diabetes. 6. Atrial fibrillation on anticoagulation. 7. Possible GERD. 8. Moderate R and small L pleural effusion 9. Atelectasis TREATMENT PLAN: 1. Optimize pulmonary hygiene/mobilize as tolerated. 2. Titrate down FiO2 to keep saturations greater than 90%. 3. P.r.n. bronchodilators. 4. Monitor volumes and renal function, diuresis as tolerated. 5. Monitor off antibiotics for signs of respiratory precautions. 6. Insufficient fluid for thora 7. Aspiration precautions 8. F/U GI recs, IV IRON, F/U endoscopy path 9. DVT prophylaxis. Resume Xarelto Subjective Allergies: Coded Allergies: No Known Allergies (Unverified , 02/22/18) Subjective O2 needs unchanged, AFVSS No cough, no SOB, no F/C Insufficient fluid for thora S/P EGD, no sig findings Objective Last 24 Hour Vital Signs Date Time Temp Pulse Resp B/P (MAP) Pulse Ox O2 Delivery O2 Flow Rate FiO2 03/01/18 20:00 Nasal Cannula 2.0 28 03/01/18 20:00 95 Nasal Cannula 2.0 28 03/01/18 16:00 97.7 71 18 152/70 (97) 95 97.7 03/01/18 15:34 55 03/01/18 12:00 98.1 60 18 154/63 (93) 95 98.1 03/01/18 11:58 56 03/01/18 09:00 Nasal Cannula 2.0 03/01/18 08:00 98.2 60 18 160/54 (89) 93 98.2 03/01/18 07:52 60 03/01/18 07:40 94 Venturi Mask 4.0 36 03/01/18 07:40 Nasal Cannula 4.0 36 03/01/18 04:27 181/61 03/01/18 04:00 97.3 68 20 181/61 (101) 94 97.3 03/01/18 04:00 53 03/01/18 00:00 98.2 73 20 160/65 (96) 95 98.2 03/01/18 00:00 75 Intake and Output 02/28/18 03/01/18 19:00 07:00 Intake Total 780 ml Balance 780 ml Intake Oral 480 ml IV Total 300 ml # Voids 3 2 # Bowel Movements 1 General Appearance: no acute distress HEENT: normocephalic, atraumatic, anicteric, mucous membranes moist Respiratory/Chest: chest wall non-tender, lungs clear, normal breath sounds, no respiratory distress, no accessory muscle use Cardiovascular: normal peripheral pulses, normal rate, regular rhythm Abdomen: normal bowel sounds, soft, non tender, no organomegaly, non distended , no mass Extremities: no cyanosis, no clubbing, no edema Laboratory Tests 03/01/18 06:30: White Blood Count 6.6, Red Blood Count 3.49L, Hemoglobin 9.6L, Hematocrit 29.9L , Mean Corpuscular Volume 86, Mean Corpuscular Hemoglobin 27.5, Mean Corpuscular Hemoglobin Concent 32.1, Red Cell Distribution Width 15.8H, Platelet Count 356, Mean Platelet Volume 7.3, Neutrophils (%) (Auto) 51.6, Lymphocytes (%) (Auto) 31.8, Monocytes (%) (Auto) 10.4H, Eosinophils (%) (Auto) 5.5H, Basophils (%) (Auto) 0.8, Sodium Level 139, Potassium Level 3.3L, Chloride Level 106, Carbon Dioxide Level 29, Anion Gap 4L, Blood Urea Nitrogen 10, Creatinine 0.9, Glucose Level 180H, Calcium Level 8.2L 03/01/18 08:50: Prothrombin Time 11.2, Prothromb Time International Ratio 1.1, Estimat Glomerular Filtration Rate Current Medications Medications (Trade) Dose Ordered Sig/Carlo Route PRN Reason Start Time Stop Time Status Last Admin Dose Admin Acetaminophen (Tylenol) 500 mg Q4H PRN ORAL Mild Pain/Temp > 100.5 02/23/18 02:00 03/25/18 01:59 02/26/18 17:09 Ceftriaxone Sodium 1 gm/ Dextrose 55 ml @ 110 mls/hr DAILY IVPB 02/28/18 10:30 03/07/18 10:29 03/01/18 08:56 Clonidine HCl (Catapres Tab) 0.1 mg Q2H PRN ORAL For High Blood Pressure 02/23/18 09:45 03/25/18 09:44 03/01/18 04:27 Dextrose (Dextrose 50%) 25 ml STAT PRN IV Hypoglycemia 02/23/18 02:00 03/25/18 01:59 Dextrose (Dextrose 50%) 50 ml STAT PRN IV Hypoglycemia 02/23/18 02:00 03/25/18 01:59 Docusate Sodium (Colace) 100 mg TWICE A DAY ORAL 02/26/18 09:00 03/28/18 08:59 03/01/18 17:00 Furosemide (Lasix) 40 mg DAILY IV 02/24/18 09:00 03/26/18 08:59 03/01/18 08:55 Insulin Aspart (NovoLOG) BEFORE MEALS AND HS SUBQ 02/23/18 06:30 03/25/18 06:29 03/01/18 20:46 Iron Sucrose 100 mg/Sodium Chloride 60 ml @ 240 mls/hr BEDTIME IV 03/01/18 21:00 03/05/18 21:14 Metoclopramide HCl (Reglan) 5 mg Q8H PRN IVP Nausea & Vomiting 02/25/18 17:15 03/27/18 17:14 Ondansetron HCl (Zofran) 4 mg Q6H PRN IVP Nausea & Vomiting 02/25/18 08:00 03/27/18 07:59 02/25/18 08:28 Polyethylene Glycol (Miralax) 17 gm BEDTIME ORAL 02/26/18 21:00 03/28/18 20:59 02/26/18 21:12 Vinicius Miranda MD Mar 01, 2018 22:29
--- NOTE | 2018-03-03 14:19 | Discharge Summary ---
Discharge Summary Discharge Summary _ DATE OF ADMISSION: 02/22/2018 DATE OF DISCHARGE: 03/01/2018 REASON FOR ADMISSION: 82 years old female with past medical history significant for diabetes mellitus , hypertension, congestive heart failure, pacemaker, atrial fibrillation, on anticoagulation , presented with increased shortness of breath. She was found by paramedics to be hypoxic and was placed on 100% nonrebreathing mask. Upon evaluation in emergency department blood pressure was low 96 /50. No leukocytosis,hemoglobin 9.3, hematocrit 28.6 Lactic acid 1.8 BUN 28 ,creatinine 1.3 Troponin negative. EKG revealed A pacing rhythm with stable heart rate. Chest x-ray revealed pulmonary edema and cardiomegaly Patient admitted for further management with diagnoses of acute hypoxemic respiratory failure, acute CHF exacerbation, hypertension, hyperlipidemia, diabetes, atrial fibrillation, anemia. CONSULTANTS: manager of planning Dr. Reid pulmonary Dr. Miranda ID specialist GI specialist music sound light technician/oncologist Dr. Langston psychiatrist [facility] COURSE: Patient admitted to telemetry floor. Patient started on diuresis. Volumes and cardiorenal parameters were closely monitored. Pulmonary hygiene was optimized . Supplemental oxygen titrated to keep pulse oximetry above 92% Pulmonary toilet provided around the clock and as needed. Patient was mobilized out of bed as tolerated. Echocardiogram revealed preserved ejection fraction 55-60%, evidence of moderate aortic stenosis and right ventricular systolic pressure of 46, consistent with moderate pulmonary hypertension. Venous duplex bilateral lower extremity was negative. D-dimer noted to be elevated -0.72 Subsequently patient undergone VQ scan which revealed low to intermediate probability of pulmonary emboli. When creatine became stable, patient subsequently undergone CTA of the chest which revealed no evidence of pulmonary emboli, no aortic dissection or aneurysm. CTA also showed moderate right pleural effusion. Subsequently chest ultrasound was done to evaluate for pleural effusion, which showed only trace left pleural effusion and small right pleural effusion. There was not enough fluid to provide safe thoracentesis Thoracentesis subsequently was cancelled. Bar Gauger And Lubricator Tender closely followed. Patient was on daily diuretic with close monitoring of volumes and cardiorenal parameters. Statin was continued with goal to keep LDL below 70. Troponin 3 were negative. Pro BNP trending down from initial 2984 down to 1785 Patient was followed up with chest x-ray which revealed some improvement in CHF. Patient with the history of paroxysmal atrial fibrillation. Anticoagulation was continued. EKG showed A pacing with stable heart rate and nonspecific T-wave abnormality. Pacer interrogation revealed normal functioning. Blood pressure was closely monitored, remained stable. Infectious disease consult was requested for possible pneumonia. Patient started on antibiotics. Unable to obtain sputum culture, non- productive cough. Blood culture were negative Patient was discharged on antibiotics to complete the course. Psychiatrist closely followed. Psychiatrist diagnosed patient with major depressive disorder,,anxiety and dementia. Per psychiatrist, patient lacks capacity to make an informed decision. Psychiatrist optimized psychiatric medication regimen. GI specialist closely followed. Patient undergone EGD and colonoscopy with findings of gastritis ,status post biopsy, colonic polyps removal, internal hemorrhoids. Pathology of stomach antrum revealed no evidence of H. pylori infection , and showed mild chronic gastritis. 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 Antiemetics provided as needed. Hemoglobin and hematocrit were closely monitored with goal to keep hemoglobin above 7. Anemia workup was consistent with anemia of iron disease [employer]er closely followed. Patient was on IV Venofer. Tumor markers were within normal limits. Stool for occult blood was negative. Antiemetics provided as needed. Blood sugar was managed with sliding scale of insulin. Pain management was addressed. Bowel regimen instituted. Supportive care provided Renal parameters and electrolytes were closely monitored. Electrolytes corrected as needed. Nephrotoxins were avoided. Patient clinically improved and was stable for discharge to retirement facility for continuation of care. FINAL DIAGNOSES: Acute hypoxemic respiratory failure Acute CHF exacerbation Paroxysmal atrial fibrillation Status post [place] [employer] permanent pacemaker implantation Hypertension Hyperlipidemia Diabetes mellitus Possible pneumonia Iron deficiency anemia Possible GERD Gastroparesis secondary to diabetes mellitus Major depressive disorder Anxiety Dementia DISCHARGE MEDICATIONS: See Medication Reconciliation list. DISCHARGE INSTRUCTIONS: Patient was discharged to retirement facility. I have been assigned to dictate discharge summary for this account. I was not involved in the patient's management. Karen Hughes NP Mar 03, 2018 14:18
== END 2018-03-01 21:00 | DRG 291 ==
LOC: EDBD 22:07 → EMR 22:30 → 2E 23:25 → EDBEDREQ 23:57
PROC: 0DB78ZX Excision of Stomach, Pylorus, Via Natural or Artificial Opening Endoscopic, Diagnostic (ICD-10-PCS; principal; 2018-02-28 09:21)
PROC: 0DBL8ZX Excision of Transverse Colon, Via Natural or Artificial Opening Endoscopic, Diagnostic (ICD-10-PCS; principal; 2018-02-28 09:21)
DX: I11.0 Hypertensive heart disease with heart failure (principal); J96.01 Acute respiratory failure with hypoxia; J18.9 Pneumonia, unspecified organism; J91.8 Pleural effusion in other conditions classified elsewhere; D68.9 Coagulation defect, unspecified; J98.11 Atelectasis; I50.9 Heart failure, unspecified; Z79.01 Long term (current) use of anticoagulants; I48.0 Paroxysmal atrial fibrillation; Z95.0 Presence of cardiac pacemaker; F09 Unspecified mental disorder due to known physiological condition; G20 Parkinson's disease; F02.80 Dementia in other diseases classified elsewhere, unspecified severity, without behavioral disturbance, psychotic disturbance, mood disturbance, and anxiety; E11.43 Type 2 diabetes mellitus with diabetic autonomic (poly)neuropathy; K31.84 Gastroparesis; Z79.4 Long term (current) use of insulin; F32.9 Major depressive disorder, single episode, unspecified; F41.9 Anxiety disorder, unspecified; D50.9 Iron deficiency anemia, unspecified; K21.9 Gastro-esophageal reflux disease without esophagitis; E78.5 Hyperlipidemia, unspecified; R11.10 Vomiting, unspecified; K29.60 Other gastritis without bleeding; K64.8 Other hemorrhoids; D12.3 Benign neoplasm of transverse colon
CPT/HCPCS: 36415; 36600; 71045; 71275; 74018; 76604; 76700; 78579; 78580; 80048; 80053; 81003; 82270; 82378; 82550; 82553; 82607; 82728; 82746; 82803; 82962; 83540; 83550; 83605; 83615; 83880; 84484; 85007; 85025; 85044; 85060; 85379; 85610; 87040; 93005; 93306; 93970; 94003; 94150; 94640; 94664; 94760; 99285; A9503; J1815; J2405; J7620; J8499

== ENCOUNTER 2018-03-24 13:49 | Outpatient (CLI) | payer MEDICARE, MEDICAID ==
[~2018-03-24 13:49] MED LIST: AMIODARONE HCL100 MG ORAL; AMIODARONE HCL200 MG ORAL; ASPIRIN81 M3 PO; DIOVAN80 MG ORAL; DONEPEZIL HCL10 M2 ORAL; FUROSEMIDE20 M1 ORAL; LANTUS SOL100 UNIT/1 SUBQ; METOPROLOL TAR100 M1 ORAL; NORVASC10 MG ORAL; ROCEPHIN 11 GM/50 ML IVPB; SERTRALINE HCL50 MG ORAL; TORSEMIDE20 MG ORAL; XARELTO10 MG ORAL
[2018-03-24 14:09] VITALS: BP 137/48
[2018-03-24] MEDS ORDERED: EFFER-K 20 MEQ20 MEQ PO (14:48)
[2018-03-24] MEDS ORDERED: ZOFRAN4 M3 ORAL (14:48)
--- NOTE | 2018-03-25 09:07 | GI Initial Consult Note ---
History of Present Illness General Date patient seen: Mar 24, 2018 Time patient seen: 09:03 Referring physician: DIONISIO NELSON Reason for Consultation: ANEMIA Present Illness HPI 82 year old female patient, does not speak Bengali. Had recent admission to the hospital for abdominal pain, nausea and SOB. Now s/p EGD and colonoscopy, summary noted below, presents today for evaluation of anemia. In addition, the patient has occasional c/o of nausea without vomiting. No noted unintentional weight loss or changes in dietary habits. Patient is a fall risk. PAST MEDICAL HISTORY: Significant for organic brain syndrome, Parkinson, NIDDM , hypertension, history of atrial fibrillation, depression, and CHF. EGD/colonoscopy SUMMARY OF FINDINGS: 1. Gastritis, status post biopsy. 2. Two colonic polyps removed, see above for details. 3. History of right hemicolectomy. 4. Internal hemorrhoids. Home Meds Reported Medications Potassium Bicarbonate/Cit Ac (EFFER-K 20 MEQ TABLET EFF) 20 Meq Tablet.eff, 20 MEQ PO DAILY, TAB 03/24/18 Ondansetron* (ZOFRAN*) 4 Mg Tablet, 4 MG ORAL Q6H PRN for Nausea & Vomiting, TAB 03/24/18 Insulin Glargine (LANTUS) 100 Unit/1 Ml Insuln.pen, SUBQ QHS, #1 EA 0 Refills SLIDING SCALE 02/23/18 Donepezil Hcl* (DONEPEZIL HCL*) 10 Mg Tab.rapdis, 10 MG ORAL BEDTIME, TAB 02/23/18 Torsemide* (DEMADEX*) 20 Mg Tablet, 20 MG ORAL DAILY, TAB 0 Refills 02/23/18 Metoprolol Tartrate* (METOPROLOL TARTRATE*) 100 Mg Tablet, 100 MG ORAL DAILY, TAB 02/23/18 Valsartan (DIOVAN) 80 Mg Tab, 80 MG ORAL DAILY, TAB 02/23/18 Rivaroxaban (XARELTO*) 10 Mg Tablet, 10 MG ORAL DAILY, #30 TAB 0 Refills 02/23/18 Sertraline Hcl* (ZOLOFT*) 50 Mg Tablet, 50 MG ORAL DAILY, TAB 02/23/18 Furosemide* (LASIX*) 20 Mg Tablet, 20 MG ORAL DAILY, TAB 02/23/18 Discontinued Reported Medications Ceftriaxone Sod (Ceftriaxone 1 gm-D5w Bag) 1 Gm/50 Ml Piggyback, 1 GM IVPB DAILY for 7 Days, BAG 03/01/18 Amlodipine Besylate (Norvasc) 10 Mg Tablet, 10 MG ORAL DAILY, TAB 02/23/18 Amiodarone Hcl* (CORDARONE*) 200 Mg Tablet, 200 MG ORAL DAILY, TAB 02/23/18 Aspirin (Aspirin) 81 Mg Tab.chew, 81 MG PO, TAB 02/23/18 Med list reviewed/reconciled: Yes Allergies: Coded Allergies: No Known Allergies (Unverified , 02/22/18) Patient History History Provided By: Medical Record Review of Systems All Other Systems: limited Physical Exam Vital Signs Date Time Temp Pulse Resp B/P (MAP) Pulse Ox O2 Delivery O2 Flow Rate FiO2 03/24/18 14:09 97.5 61 16 137/48 99 97.5 Sp02 EP Interpretation: reviewed, normal General Appearance: well appearing, no apparent distress, alert Head: normocephalic EENT: PERRL/EOMI, normal ENT inspection Neck: supple Respiratory: normal breath sounds, no respiratory distress Cardiovascular: normal rate Gastrointestinal: normal inspection, non tender, soft, normal bowel sounds, non -distended Rectal: deferred Genitourinary: no CVA tenderness Musculoskeletal: normal inspection, back normal Neurologic: normal inspection, alert, oriented x3, responsive Psychiatric: normal inspection, judgement/insight normal, memory normal Skin: normal inspection, normal color, no rash, warm/dry, palpation normal, well hydrated Lymphatic: normal inspection, no adenopathy GI: Plan Problems: (1) Encounter for diagnostic endoscopy (2) Anemia (3) Vomiting (4) Gastroparesis due to DM (5) Pacemaker (6) Iron deficiency (7) DM (diabetes mellitus) Plan SBCE scheduled for 03/24/18. - CLD & (Miralax) prep instructions given and acknowledged by caregiver. - NPO @ ND day prior procedure explained. Seen with Dr. Hurtado. Thank you for this patient referral. The patient was seen and examined at bedside and all new and available data was reviewed in the patients chart. I agree with the above findings, impression and plan. (Patient seen earlier today. Signature stamp does not reflect patient encounter time.). - MD Ilda Garcia,[facility] CHILD WELFARE COUNSELOR Mar 25, 2018 09:07
== END 2018-03-24 14:12 | disposition home or self-care (01) ==
LOC: PAN 13:49
DX: E11.43 Type 2 diabetes mellitus with diabetic autonomic (poly)neuropathy (principal); Z95.0 Presence of cardiac pacemaker; D50.9 Iron deficiency anemia, unspecified; R11.10 Vomiting, unspecified; R10.9 Unspecified abdominal pain; K29.70 Gastritis, unspecified, without bleeding; Z86.010 Personal history of colon polyps; K64.8 Other hemorrhoids; Z79.4 Long term (current) use of insulin; G20 Parkinson's disease; I10 Essential (primary) hypertension; I11.0 Hypertensive heart disease with heart failure; F32.9 Major depressive disorder, single episode, unspecified; Z79.82 Long term (current) use of aspirin
CPT/HCPCS: 99212